=== PATIENT | male | born 1965 | race Caucasian/White ===

== ENCOUNTER → 2019-08-11 11:18 | Outpatient (BNVA) | payer MEDICARE, MEDICAID, SELFPAY | PROVIDERS: Family Provider Family Medicine; PCP Family Medicine; Visit Provider Nurse Practitioner | DX: F20.9 Schizophrenia, unspecified (principal) | CPT/HCPCS: 85007; 85027 ==

== ENCOUNTER → 2019-09-07 11:24 | Outpatient (BNVA) | payer MEDICARE, MEDICAID, SELFPAY | PROVIDERS: Family Provider Family Medicine; PCP Family Medicine; Visit Provider Nurse Practitioner | DX: F20.89 Other schizophrenia (principal); Z79.899 Other long term (current) drug therapy | CPT/HCPCS: 85007; 85027; 99214 ==

== ENCOUNTER → 2019-10-06 13:45 | Outpatient (BNVA) | payer MEDICARE, MEDICAID, SELFPAY | PROVIDERS: Family Provider Family Medicine; PCP Family Medicine; Visit Provider Nurse Practitioner | DX: F20.89 Other schizophrenia (principal) | CPT/HCPCS: 85007; 85027; 99213 ==

== ENCOUNTER → 2019-11-11 08:33 | Outpatient (BNVA) | payer MEDICARE, MEDICAID, SELFPAY | PROVIDERS: Family Provider Family Medicine; PCP Family Medicine; Visit Provider Nurse Practitioner | DX: F20.89 Other schizophrenia (principal) | CPT/HCPCS: 99214 ==

== ENCOUNTER → 2019-12-14 08:17 | Outpatient (BNVA) | payer MEDICARE, MEDICAID, SELFPAY | PROVIDERS: Family Provider Family Medicine; PCP Family Medicine; Visit Provider Nurse Practitioner | DX: F20.89 Other schizophrenia (principal); F41.0 Panic disorder [episodic paroxysmal anxiety]; F41.1 Generalized anxiety disorder | CPT/HCPCS: 99213 ==

== ENCOUNTER → 2020-01-04 14:30 | Outpatient (BNVA) | payer MEDICARE, SELFPAY | PROVIDERS: Family Provider Family Medicine; PCP Family Medicine; Visit Provider Nurse Practitioner | DX: F20.89 Other schizophrenia (principal) | CPT/HCPCS: 99214 ==

== ENCOUNTER → 2020-01-06 11:47 | Outpatient (BNVA) | payer MEDICARE, SELFPAY | PROVIDERS: Family Provider Family Medicine; PCP Family Medicine; Visit Provider Nurse Practitioner | DX: F20.89 Other schizophrenia (principal); Z79.899 Other long term (current) drug therapy | CPT/HCPCS: 80061; 83036; 85007; 85027 ==

== ENCOUNTER → 2020-02-10 08:44 | Outpatient (BNVA) | payer MEDICARE, MEDICAID, SELFPAY | PROVIDERS: Family Provider Family Medicine; PCP Family Medicine; Visit Provider Nurse Practitioner | DX: F20.89 Other schizophrenia (principal); Z79.899 Other long term (current) drug therapy | CPT/HCPCS: 99213 ==

== ENCOUNTER → 2020-02-15 13:16 | Outpatient (BNVA) | payer MEDICARE, MEDICAID, SELFPAY | PROVIDERS: Family Provider Family Medicine; PCP Family Medicine; Visit Provider Nurse Practitioner | DX: F20.89 Other schizophrenia (principal); Z79.899 Other long term (current) drug therapy | CPT/HCPCS: 80061; 83036; 83721; 85007; 85027 ==

== ENCOUNTER → 2020-02-23 13:04 | Outpatient (BNVA) | payer MEDICARE, MEDICAID, OTHER, SELFPAY | PROVIDERS: Family Provider Family Medicine; PCP Family Medicine; Visit Provider Internal Medicine Rheumatology | DX: M05.79 Rheumatoid arthritis with rheumatoid factor of multiple sites without organ or systems involvement (principal); Z79.899 Other long term (current) drug therapy; Z11.59 Encounter for screening for other viral diseases; Z11.1 Encounter for screening for respiratory tuberculosis; M79.10 Myalgia, unspecified site; F20.89 Other schizophrenia | CPT/HCPCS: 36415; 82085; 82306; 82550; 85651; 86140; 86480; 86704; 86803; 87340; 99204 ==

== ENCOUNTER 2020-03-06 12:40 | Outpatient (CLI) | payer MEDICARE, MEDICAID, SELFPAY ==
--- NOTE | 2020-03-06 12:47 | XR_ITS ---
WS: [id number] FOOT LEFT TECHNIQUE: 3 views of the left foot CLINICAL INFORMATION: rheumatoid arthritis COMPARISON: None. FINDINGS: No evidence of acute fracture or dislocation. Normal tarsal metatarsal alignment. Normal calcaneus. N ormal visualized talar dome. No acute findings. XR/XR foot LT min 3V* [id number] IMPRESSION: Normal left foot.
--- NOTE | 2020-03-06 12:47 | XR_ITS ---
WS: [id number] HAND RIGHT TECHNIQUE: 3 views of the right hand CLINICAL INFORMATION: rheumatoid arthritis COMPARISON: None. FINDINGS: Normal metacarpals. Normal MCP joint. Metacarpal heads are normal in appearance. Normal PIP and DIP j oints. No evidence of acute fracture or dislocation. Radiocarpal joint: Normal. Carpal bones: Normal. XR/XR hand RT min 3V* [id number] IMPRESSION: Normal right hand.
--- NOTE | 2020-03-06 12:47 | XR_ITS ---
WS: [id number] PROCEDURE: XR chest 2V* [id number] CLINICAL INFORMATION: rheumatoid arthritis COMPARISON: March 27, 2019 FINDINGS: Heart: Normal cardiac silhouette. Lungs: Lungs are clear. No consolidation or pleural fluid. Calcified granuloma left upper lobe. Bones: Moderate thoracic kyphosis. XR/XR chest 2V* [id number] IMPRESSION: No acute chest findings.
--- NOTE | 2020-03-06 12:47 | XR_ITS ---
WS: [id number] FOOT RIGHT TECHNIQUE: 3 views of the right foot CLINICAL INFORMATION: rheumatoid arthritis COMPARISON: None. FINDINGS: No evidence of acute fracture or dislocation. Normal tarsal metatarsal alignment. Normal calcaneus. N ormal visualized talar dome. No acute findings. XR/XR foot RT min 3V* [id number] IMPRESSION: Normal right foot.
--- NOTE | 2020-03-06 12:47 | XR_ITS ---
WS: [id number] HAND LEFT TECHNIQUE: 3 views of the left hand CLINICAL INFORMATION: rheumatoid arthritis COMPARISON: None. FINDINGS: Normal metacarpals. Normal MCP joint. Metacarpal heads are normal in appearance. Normal PIP and DIP j oints. No evidence of acute fracture or dislocation. Radiocarpal joint: Normal. Carpal bones: Normal. XR/XR hand LT min 3V* [id number] IMPRESSION: Normal left hand.
== END 2020-03-06 12:41 | disposition home or self-care (01) ==
LOC: RADWPI 12:44
PROVIDERS: Family Provider Family Medicine; PCP Family Medicine; Visit Provider Internal Medicine Rheumatology
DX: M06.9 Rheumatoid arthritis, unspecified (principal)
CPT/HCPCS: 71046; 73130; 73630

== ENCOUNTER → 2020-03-16 09:24 | Outpatient (BNVA) | payer MEDICARE, MEDICAID, SELFPAY | PROVIDERS: Family Provider Family Medicine; PCP Family Medicine; Visit Provider Nurse Practitioner | DX: F20.89 Other schizophrenia (principal) | CPT/HCPCS: 99214 ==

== ENCOUNTER → 2020-03-17 13:06 | Outpatient (BNVA) | payer MEDICARE, MEDICAID, SELFPAY | PROVIDERS: Family Provider Family Medicine; PCP Family Medicine; Visit Provider Nurse Practitioner | DX: F20.89 Other schizophrenia (principal); Z79.899 Other long term (current) drug therapy | CPT/HCPCS: 85007; 85027 ==

== ENCOUNTER → 2020-04-10 07:58 | Outpatient (BNVA) | payer MEDICARE, MEDICAID, SELFPAY | PROVIDERS: Family Provider Family Medicine; PCP Family Medicine; Visit Provider Nurse Practitioner | DX: F20.89 Other schizophrenia (principal); F20.0 Paranoid schizophrenia; F43.12 Post-traumatic stress disorder, chronic | CPT/HCPCS: 99214 ==

== ENCOUNTER → 2020-04-17 13:26 | Outpatient (BNVA) | payer MEDICARE, MEDICAID, SELFPAY | PROVIDERS: Family Provider Family Medicine; PCP Family Medicine; Visit Provider Nurse Practitioner | DX: F20.89 Other schizophrenia (principal) | CPT/HCPCS: 85007; 85027 ==

== ENCOUNTER → 2020-05-11 08:28 | Outpatient (BNVA) | payer MEDICARE, MEDICAID, SELFPAY | PROVIDERS: Family Provider Family Medicine; PCP Family Medicine; Visit Provider Nurse Practitioner | DX: F20.89 Other schizophrenia (principal) | CPT/HCPCS: 99213 ==

== ENCOUNTER → 2020-05-16 11:52 | Outpatient (BNVA) | payer MEDICARE, SELFPAY | PROVIDERS: Family Provider Family Medicine; PCP Family Medicine; Visit Provider Nurse Practitioner | DX: F20.89 Other schizophrenia (principal); Z79.899 Other long term (current) drug therapy | CPT/HCPCS: 85007; 85027 ==

== ENCOUNTER → 2020-05-18 13:19 | Outpatient (BNVA) | payer OTHER, SELFPAY | PROVIDERS: Family Provider Family Medicine; PCP Family Medicine; Visit Provider Nurse Practitioner | DX: F20.89 Other schizophrenia (principal); Z79.899 Other long term (current) drug therapy | CPT/HCPCS: 80061; 83036 ==

== ENCOUNTER → 2020-06-01 14:22 | Outpatient (BNVA) | payer MEDICARE, MEDICAID, SELFPAY ==
[2020-05-23 14:39] VITALS: BP 147/98; BMI 32.2
== END ==
PROVIDERS: Family Provider Family Medicine; PCP Family Medicine; Visit Provider Internal Medicine Rheumatology
DX: M79.10 Myalgia, unspecified site; Z79.84 Long term (current) use of oral hypoglycemic drugs; Z87.891 Personal history of nicotine dependence; M05.79 Rheumatoid arthritis with rheumatoid factor of multiple sites without organ or systems involvement; Z79.899 Other long term (current) drug therapy; F20.89 Other schizophrenia; E11.9 Type 2 diabetes mellitus without complications
CPT/HCPCS: 99214

== ENCOUNTER → 2020-06-13 13:24 | Outpatient (BNVA) | payer MEDICARE, SELFPAY ==
[2020-05-23 14:39] VITALS: BP 147/98; BMI 32.2
== END ==
PROVIDERS: Family Provider Family Medicine; PCP Family Medicine; Visit Provider Nurse Practitioner
DX: F20.89 Other schizophrenia (principal); Z79.899 Other long term (current) drug therapy
CPT/HCPCS: 85007; 85027

== ENCOUNTER → 2020-06-19 07:46 | Outpatient (BNVA) | payer MEDICARE, MEDICAID, SELFPAY ==
[2020-05-23 14:39] VITALS: BP 147/98; BMI 32.2
== END ==
PROVIDERS: Family Provider Family Medicine; PCP Family Medicine; Visit Provider Nurse Practitioner
DX: F20.89 Other schizophrenia (principal)
CPT/HCPCS: 99213

== ENCOUNTER → 2020-07-17 07:43 | Outpatient (BNVA) | payer MEDICARE, MEDICAID, SELFPAY ==
[2020-05-23 14:39] VITALS: BP 147/98; BMI 32.2
== END ==
PROVIDERS: Family Provider Family Medicine; PCP Family Medicine; Visit Provider Nurse Practitioner
DX: F20.89 Other schizophrenia (principal)
CPT/HCPCS: 99213

== ENCOUNTER → 2020-07-26 11:54 | Outpatient (BNVA) | payer MEDICARE, MEDICAID, SELFPAY ==
[2020-05-23 14:39] VITALS: BP 147/98; BMI 32.2
== END ==
PROVIDERS: Family Provider Family Medicine; PCP Family Medicine; Visit Provider Nurse Practitioner
DX: F20.89 Other schizophrenia (principal); Z79.899 Other long term (current) drug therapy
CPT/HCPCS: 85007; 85027

== ENCOUNTER 2020-08-15 11:06 | Outpatient (CLI) | payer MEDICARE, MEDICAID, SELFPAY ==
[2020-05-23 14:39] VITALS: BP 147/98; BMI 32.2
--- NOTE | 2020-08-15 | USCV_ITS ---
Stress Echo Bassam Post Jr Age: 54 Gender: M : 1965 Exam Date: 08/15/2020 11:37 Ordering Phys: Avery March MD Technologist: Randy Knott Exam Location: [facility] – [place] Indication: dyspnea Rhythm: Sinus Patient History: Dyspnea/SOB Cardiac Medications: Medications in past 24 hours: Contrast: Stress Results Protocol: Duncan Total dose(mL): Exercise Duration (min:sec): 3:30 METS: 7 Resting HR: 85 Resting BP: 164 / 103 Peak HR: 115 Peak BP: 166 / 105 Max Predicted HR: 168 68 % Max Predicted HR Target HR: 143 Double Product: 19977 Stress Summary: The patient's target heart rate was not achieved The patient's target heart rate was not achieved due to fatigue BP Response: Normal Reason for Termination: Fatigue Cardiac Symptoms: Dyspnea ECG Analysis Resting ECG: Stress ECG: Arrhythmia: MEASUREMENTS (Male/Female) Normal Values FINDINGS PROCEDURE: At the baseline, the patient's blood pressure was 164/103 mmHg with a heart rate of 85 bpm. The patient exercised for 3 minutes and 30 seconds on a standard Duncan protocol. Patient attained a maximum heart rate of 115 beats per minute( 68 % of the maximum predicted heart rate) with a blood pressure at the peak exercise of 166/105 mm Hg. During the recovery phase, there were no new changes. Echocardiographic pictures were taken at the baseline, immediately following the peak exercise and during the recovery phase. Baseline echocardiogram: Normal left ventricular size and systolic function with ejection fraction estimated at 60 %. No regional wall motion abnormalities. Normal right ventricle size and systolic function. Normal left and right atrial size. No pericardial effusion. No intracardiac masses. Peak exercise echocardiogram: Normal augmentation of left ventricular systolic function with exercise. No new regional wall motion abnormalities. Recovery echocardiogram: Left ventricular systolic function normalizes. No regional wall motion abnormalities. CONCLUSIONS 1. This is a treadmill stress echocardiogram. Patient did not reach target heart rate due to fatigue. 2. Decreased exercise tolerance for age, attained a maximum of 7 [place] [address]. 3. Normal blood pressure and heart rate response to exercise. 4. Normal echocardiographic response to sub maximal stress. 5. Please see separate report for the EKG portion of the study. Monika Lester MD (Electronically Signed) Final Date: 20 August 2020 15:32 S
[2020-08-15 11:30] VITALS: BMI 29.8
--- NOTE | 2020-08-15 11:30 | ECG_ITS ---
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 Interpretive Statements NAME OF STUDY: TREADMILL STRESS ECHOCARDIOGRAM INDICATION: Chest Pain PROCEDURE: At the baseline, the patient's blood pressure was 164/103 mm Hg with a heart rate of 85 bpm and oxygen saturation of 95%. The baseline electrocardiogram showed normal sinus rhythm with normal ST-Ts. The patient exercised for 3 minutes and 32 seconds on a [standard Duncan protocol]. Patient attained a maximum heart rate of 115 beats per minute( 68% of the maximum predicted heart rate) with a blood pressure at the peak exercise of 145/75 mm Hg. The EKG at the peak exercise revealed sinus tachycardia with no significant ST-T wave changes. Patient did not have any chest pain or any significant EKG changes with the exercise. During the recovery phase, there were no new changes. Blood pressure at the end of the recovery phase was 157/102 mm Hg with a heart rate of 90 beats per minute and oxygen saturation of 97%. Echocardiographic pictures were taken at the baseline, immediately following the peak exercise and during the recovery phase. CONCLUSION: 1. Normal EKG response to treadmill exercise with submaximal stress. Patient reached 68% of MPHR. 2. No exercise-induced chest pain or cardiac arrhythmia. 3. Decreased exercise tolerance, attained a maximum of 7 METs. 4. Please see separate report for the echocardiographic response to exercise. Electronically Signed On 08-20-2020 17:00:22 COMPANY ACCOUNTANT by Monika Lester M.D. [id number]
[2020-08-15 12:07] VITALS: BP 157/102; PULSE 90
--- NOTE | 2020-08-15 13:16 | PC.NURSE ---
unable to reach target heart rate due to pt stating he couldn't go any more. pt was having a difficult time breathing while on treadmill.
== END 2020-08-15 11:07 | disposition home or self-care (01) ==
LOC: CDL 11:06
PROVIDERS: PCP Family Medicine; Visit Provider Family Medicine
DX: R06.09 Other forms of dyspnea (principal); R07.9 Chest pain, unspecified
CPT/HCPCS: 93017; 93350

== ENCOUNTER → 2020-08-29 08:25 | Outpatient (BNVA) | payer MEDICARE, MEDICAID, SELFPAY ==
[2020-05-23 14:39] VITALS: BP 147/98; BMI 32.2
== END ==
PROVIDERS: PCP Family Medicine; Visit Provider Nurse Practitioner
DX: F33.1 Major depressive disorder, recurrent, moderate (principal); F20.89 Other schizophrenia
CPT/HCPCS: 99214

== ENCOUNTER → 2020-09-25 13:07 | Outpatient (BNVA) | payer MEDICARE, MEDICAID, SELFPAY ==
[2020-05-23 14:39] VITALS: BP 147/98; BMI 32.2
== END ==
PROVIDERS: PCP Family Medicine; Visit Provider Nurse Practitioner
DX: F20.89 Other schizophrenia (principal); Z79.899 Other long term (current) drug therapy
CPT/HCPCS: 85007; 85027

== ENCOUNTER → 2020-09-27 07:26 | Outpatient (BNVA) | payer MEDICARE, MEDICAID, SELFPAY ==
[2020-05-23 14:39] VITALS: BP 147/98; BMI 32.2
== END ==
PROVIDERS: PCP Family Medicine; Visit Provider Nurse Practitioner
DX: F33.1 Major depressive disorder, recurrent, moderate (principal); F20.89 Other schizophrenia
CPT/HCPCS: 99214

== ENCOUNTER → 2020-10-16 13:03 | Outpatient (BNVA) | payer MEDICARE, MEDICAID, SELFPAY ==
[2020-05-23 14:39] VITALS: BP 147/98; BMI 32.2
== END ==
PROVIDERS: PCP Family Medicine; Visit Provider Internal Medicine Rheumatology
DX: M05.79 Rheumatoid arthritis with rheumatoid factor of multiple sites without organ or systems involvement (principal); Z79.899 Other long term (current) drug therapy; F20.89 Other schizophrenia; M79.10 Myalgia, unspecified site; E11.9 Type 2 diabetes mellitus without complications; Z79.84 Long term (current) use of oral hypoglycemic drugs; Z87.891 Personal history of nicotine dependence
CPT/HCPCS: 99214

== ENCOUNTER → 2020-10-26 11:39 | Outpatient (BNVA) | payer MEDICARE, MEDICAID, SELFPAY ==
[2020-05-23 14:39] VITALS: BP 147/98; BMI 32.2
== END ==
PROVIDERS: PCP Family Medicine; Visit Provider Nurse Practitioner
DX: F33.1 Major depressive disorder, recurrent, moderate (principal); F20.89 Other schizophrenia
CPT/HCPCS: 99214

== ENCOUNTER → 2020-11-28 13:20 | Outpatient (BNVA) | payer MEDICARE, MEDICAID, SELFPAY ==
[2020-05-23 14:39] VITALS: BP 147/98; BMI 32.2
== END ==
PROVIDERS: PCP Family Medicine
DX: F20.89 Other schizophrenia (principal); Z79.899 Other long term (current) drug therapy
CPT/HCPCS: 85007; 85027

== ENCOUNTER → 2020-12-12 14:07 | Outpatient (BNVA) | payer MEDICARE, MEDICAID, SELFPAY ==
[2020-05-23 14:39] VITALS: BP 147/98; BMI 32.2
== END ==
PROVIDERS: PCP Family Medicine; Visit Provider Nurse Practitioner
DX: F33.1 Major depressive disorder, recurrent, moderate (principal); F20.89 Other schizophrenia
CPT/HCPCS: 99214

== ENCOUNTER → 2021-01-01 13:29 | Outpatient (BNVA) | payer MEDICARE, MEDICAID, OTHER, SELFPAY ==
[2020-05-23 14:39] VITALS: BP 147/98; BMI 32.2
== END ==
PROVIDERS: PCP Family Medicine; Visit Provider Nurse Practitioner
DX: Z79.899 Other long term (current) drug therapy (principal)
CPT/HCPCS: 85007; 85027

== ENCOUNTER → 2021-01-17 12:46 | Outpatient (BNVA) | payer MEDICARE, MEDICAID, OTHER, SELFPAY ==
[2020-05-23 14:39] VITALS: BP 147/98; BMI 32.2
== END ==
PROVIDERS: PCP Family Medicine; Visit Provider Internal Medicine Rheumatology
DX: M05.79 Rheumatoid arthritis with rheumatoid factor of multiple sites without organ or systems involvement (principal); Z79.899 Other long term (current) drug therapy; E11.9 Type 2 diabetes mellitus without complications; Z79.84 Long term (current) use of oral hypoglycemic drugs; Z87.891 Personal history of nicotine dependence
CPT/HCPCS: 99214

== ENCOUNTER → 2021-01-25 11:34 | Outpatient (BNVA) | payer MEDICARE, MEDICAID, SELFPAY ==
[2020-05-23 14:39] VITALS: BP 147/98; BMI 32.2
== END ==
PROVIDERS: PCP Family Medicine; Visit Provider Nurse Practitioner
DX: F33.1 Major depressive disorder, recurrent, moderate (principal); F20.89 Other schizophrenia
CPT/HCPCS: 99214

== ENCOUNTER → 2021-02-06 14:16 | Outpatient (BNVA) | payer MEDICARE, MEDICAID, SELFPAY ==
[2020-05-23 14:39] VITALS: BP 147/98; BMI 32.2
== END ==
PROVIDERS: PCP Family Medicine; Visit Provider Nurse Practitioner
DX: F20.89 Other schizophrenia (principal); F33.1 Major depressive disorder, recurrent, moderate
CPT/HCPCS: 99214

== ENCOUNTER → 2021-02-27 13:04 | Outpatient (BNVA) | payer MEDICARE, MEDICAID, SELFPAY ==
[2020-05-23 14:39] VITALS: BP 147/98; BMI 32.2
== END ==
PROVIDERS: PCP Family Medicine; Visit Provider Nurse Practitioner
DX: F20.89 Other schizophrenia (principal); Z79.899 Other long term (current) drug therapy
CPT/HCPCS: 85007; 85027

== ENCOUNTER → 2021-03-08 07:33 | Outpatient (BNVA) | payer MEDICARE, MEDICAID, OTHER, SELFPAY ==
[2020-05-23 14:39] VITALS: BP 147/98; BMI 32.2
== END ==
PROVIDERS: PCP Family Medicine; Visit Provider Nurse Practitioner
DX: F33.1 Major depressive disorder, recurrent, moderate (principal); F20.89 Other schizophrenia
CPT/HCPCS: 90847; 99214

== ENCOUNTER → 2021-04-19 12:46 | Outpatient (BNVA) | payer MEDICARE, MEDICAID, SELFPAY ==
[2020-05-23 14:39] VITALS: BP 147/98; BMI 32.2
== END ==
PROVIDERS: PCP Family Medicine; Visit Provider Nurse Practitioner
DX: F33.1 Major depressive disorder, recurrent, moderate (principal); F20.89 Other schizophrenia; Z79.899 Other long term (current) drug therapy
CPT/HCPCS: 85025; 99214

== ENCOUNTER → 2021-05-03 12:51 | Outpatient (BNVA) | payer MEDICARE, MEDICAID, SELFPAY ==
[2020-05-23 14:39] VITALS: BP 147/98; BMI 32.2
== END ==
PROVIDERS: PCP Family Medicine; Visit Provider Internal Medicine Rheumatology
DX: M05.79 Rheumatoid arthritis with rheumatoid factor of multiple sites without organ or systems involvement (principal); Z79.899 Other long term (current) drug therapy; R06.02 Shortness of breath; E11.9 Type 2 diabetes mellitus without complications; Z79.84 Long term (current) use of oral hypoglycemic drugs; F20.9 Schizophrenia, unspecified; Z71.89 Other specified counseling; Z87.891 Personal history of nicotine dependence
CPT/HCPCS: 99214

== ENCOUNTER → 2021-05-14 12:47 | Outpatient (BNVA) | payer MEDICARE, MEDICAID, SELFPAY ==
[2020-05-23 14:39] VITALS: BP 147/98; BMI 32.2
== END ==
PROVIDERS: PCP Family Medicine; Visit Provider Nurse Practitioner
DX: F20.89 Other schizophrenia (principal); F33.1 Major depressive disorder, recurrent, moderate; Z79.899 Other long term (current) drug therapy
CPT/HCPCS: 85025; 99214

== ENCOUNTER → 2021-06-11 12:49 | Outpatient (BNVA) | payer MEDICARE, MEDICAID, SELFPAY ==
[2020-05-23 14:39] VITALS: BP 147/98; BMI 32.2
== END ==
PROVIDERS: PCP Family Medicine; Visit Provider Nurse Practitioner
DX: F33.1 Major depressive disorder, recurrent, moderate (principal); F20.89 Other schizophrenia; Z79.899 Other long term (current) drug therapy
CPT/HCPCS: 85025; 99214

== ENCOUNTER → 2021-06-22 12:49 | Outpatient (BNVA) | payer MEDICARE, MEDICAID, SELFPAY ==
[2020-05-23 14:39] VITALS: BP 147/98; BMI 32.2
== END ==
PROVIDERS: PCP Family Medicine; Visit Provider Internal Medicine Rheumatology
DX: Z01.812 Encounter for preprocedural laboratory examination (principal); Z20.822 Contact with and (suspected) exposure to COVID-19
CPT/HCPCS: 87635

== ENCOUNTER 2021-06-27 13:32 | Outpatient (CLI) | payer MEDICARE, MEDICAID, SELFPAY ==
[2020-05-23 14:39] VITALS: BP 147/98; BMI 32.2
--- NOTE | 2021-06-27 14:02 | PFTS_ITS ---
Date of Study:06/27/21 Date of Dictation: 06/27/2021 MECHANICS: Pre-bronchodilator forced vital capacity (FVC) is normal Pre-bronchodilator forced expiratory volume in one second (FEV1) is normal. FEV1/FVC is normal. There is no postbronchodilator study. FLOW VOLUME LOOP: Normal. LUNG VOLUMES:not measured DIFFUSING CAPACITY FOR CARBON MONOXIDE: normal . INTERPRETATION: The postbronchodilator spirometry is normal. Gas transfer is moderately reduced. Clinical correlation is strongly recommended. MTDD
== END 2021-06-27 13:33 | disposition home or self-care (01) ==
LOC: RT 13:35
PROVIDERS: PCP Family Medicine; Visit Provider Internal Medicine Rheumatology
DX: M05.79 Rheumatoid arthritis with rheumatoid factor of multiple sites without organ or systems involvement (principal); Z79.899 Other long term (current) drug therapy; R06.02 Shortness of breath
CPT/HCPCS: 94010; 94726

== ENCOUNTER → 2021-07-09 14:39 | Outpatient (BNVA) | payer MEDICARE, MEDICAID, SELFPAY ==
[2020-05-23 14:39] VITALS: BP 147/98; BMI 32.2
== END ==
PROVIDERS: PCP Family Medicine; Visit Provider Nurse Practitioner
DX: F33.1 Major depressive disorder, recurrent, moderate (principal); F20.89 Other schizophrenia; Z79.899 Other long term (current) drug therapy
CPT/HCPCS: 85025; 99214

== ENCOUNTER → 2021-08-17 13:53 | Outpatient (BNVA) | payer MEDICARE, MEDICAID, SELFPAY ==
[2020-05-23 14:39] VITALS: BP 147/98; BMI 32.2
== END ==
PROVIDERS: PCP Family Medicine; Visit Provider Nurse Practitioner
DX: F33.1 Major depressive disorder, recurrent, moderate (principal); F20.89 Other schizophrenia; Z79.899 Other long term (current) drug therapy
CPT/HCPCS: 85007; 85027; 99214

== ENCOUNTER → 2021-09-10 14:40 | Outpatient (BNVA) | payer MEDICARE, MEDICAID, SELFPAY ==
[2020-05-23 14:39] VITALS: BP 147/98; BMI 32.2
== END ==
PROVIDERS: PCP Family Medicine; Visit Provider Nurse Practitioner
DX: F33.1 Major depressive disorder, recurrent, moderate (principal); Z79.899 Other long term (current) drug therapy
CPT/HCPCS: 85007; 85027; 99214

== ENCOUNTER 2021-09-24 05:10 | Inpatient (IN) | payer MEDICARE, MEDICAID, SELFPAY ==
[2020-05-23 14:39] VITALS: BP 147/98; BMI 32.2
[2021-09-24 05:19] VITALS: BP 143/103; PULSE 116; RESP 17; O2SAT 97; BMI 30.2
[2021-09-24 05:44] LABS: Basophils % 0.4 %; Eosinophils # 0.2 10^3/uL (0.0-0.8); Eosinophils % 1.8 %; Hematocrit 49.9 % (42.0-52.0); Hemoglobin 15.9 g/dL (11.7-16.6); Lymphocytes # 2.7 10^3/uL (0.8-4.8); Lymphocytes % 33.2 %; Mean Corpuscular HGB Conc 31.9 g/dL (30.0-36.0); Mean Corpuscular Hemoglobin 28.4 pg (28.0-34.0); Mean Corpuscular Volume 89.1 fl (80-94); Mean Platelet Volume 9.2 fL (7.4-10.4); Monocytes # 0.6 10^3/uL (0.2-0.9); Monocytes % 6.8 %; Neutrophils % 57.7 %; Nucleated Red Blood Cells % 0 %; Platelet Count 292 10^3/cmm (130-400); Red Cell Distribution Width 13.2 % (12.1-15.1); White Blood Count 8.1 10^3/uL (4.0-10.0)
--- NOTE | 2021-09-24 05:45 | W.ED.PSYCHS ---
HPI - Psych General: Chief Complaint: Psychiatric Symptoms Stated Complaint: Psychiatric Symptoms Time Seen by Provider: 09/24/21 05:27 Source: patient and family History of Present Illness: 55-year-old gentleman with a history of schizophrenia. He has had increased stress over a personal argument with his brother lately, and has stopped taking his medications of late. He has been experiencing worsening depression, suicidality, and some hallucinations. His father brought him in this morning for the symptoms. He has no specific plan for suicide. MD complaint: suicidal ideation and feels depressed Onset (ago): day(s) Duration: constant and getting worse History of same: Yes Relieving factors: none Exacerbating factors: none Context: not taking psychiatric medications Associated psychiatric symptoms: depression and suicidal ideation Associated symptoms: Reports auditory hallucinations, depression and suicidal ideation; Deny delusions or homicidal ideation Treatments prior to arrival: none If self harm: admits thoughts of self harm Review of Systems Const: Denies: fever(s) or chills Eyes: Denies: change in vision ENMT: Denies: throat pain Card: Denies: chest pain Resp: Denies: dyspnea, productive cough or non-productive cough GI: Denies: abdominal pain, nausea, vomiting or diarrhea Skin/Breast: Denies: rash Psych: Reports: depression, auditory hallucinations and suicidal ideation; Denies: homicidal ideation PFS ED PFSH: Medical History (Updated 09/24/21 @ 06:39 by Miles Yang DO) COVID-19 vaccine administered Diabetes mellitus High risk medication use Immunization counseling residential current use of clozapine Major depressive disorder, recurrent, moderate Myalgia Other schizophrenia Psychiatric care Seropositive rheumatoid arthritis of multiple sites Surgical History (Updated 10/16/20 @ 14:10 by Kingsley Salguero MD) No significant past surgical history Family History Other CAD (coronary artery disease) Chronic kidney disease (CKD) Diabetes Hypertension Stroke Denies family history of Rheumatoid arthritis Lupus Hyperlipidemia Social History Smoking and tobacco status: former smoker Second hand smoke exposure: No Alcohol intake: current Alcohol intake frequency: few times a month Adopted: No Caregiver/support person: Yes (Pts mother is his guardian) Lives independently: No Household members: none Housing: Manufactured/Mobile home Marital status: Highest education level completed: High School Graduate service: No 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 Pets and animals: Yes Pets & animals: dog(s) History of recent travel: No Leisure activites: other Leisure activities details: garden and mow Current gender identity: Male Physical Exam Const: GENERAL APPEARANCE: cooperative NUTRITIONAL APPEARANCE: overweight ORIENTATION/CONSCIOUSNESS: Yes awake, Yes oriented to person, Yes oriented to place and Yes oriented to time HENMT: COMMON NORMALS: normocephalic, atraumatic and Normal external nose present HEAD & SCALP: normocephalic and atraumatic FACE & SINUS: normal facial exam NOSE: Normal external nose present Eye: COMMON NORMALS: Equal, round and reactive pupils present and EOMs intact bilaterally PUPIL: Yes Equal, round and reactive pupils present Chest: COMMONS NORMALS: normal inspection of the chest Resp: COMMON NORMALS: normal respiratory effort, No use of accessory muscles and clear to auscultation bilaterally AUSCULTATION: clear to auscultation bilaterally Cardio: COMMON NORMALS: regular rate and regular rhythm RATE: regular rate RHYTHM: regular rhythm GI: COMMON NORMALS: Normal to inspection, nondistended, normoactive bowel sounds present and Soft to palpation PALPATION: Yes Soft to palpation Neuro: SANDOR COMA SCALE: document GCS findings [place] coma scale eye opening: Spontaneous Sandor coma scale verbal response: Orientated [place] coma scale motor response: Obey commands Sandor coma scale total score: 15 SENSORIUM/ORIENTATION: Yes oriented to person, Yes oriented to place and Yes oriented to time GAIT: Yes Normal gait present Psych: COMMON NORMALS: speech normal ATTITUDE: Yes calm ACTIVITY/MOTOR BEHAVIOR: Yes psychomotor agitation and Yes Avoids eye contact (attititude/behavior) SPEECH: Yes normal speech MOOD & AFFECT: Yes depressed mood THOUGHT PROCESS: disorganized THOUGHT CONTENT: Yes Suicidality present, No Homicidality present and No delusions ATTENTION/CONCENTRATION: Yes attention grossly intact and Yes concentration grossly intact MEMORY/COGNITION: Yes memory grossly intact and Yes cognition grossly intact INSIGHT: Limited insight present (Psych) JUDGEMENT: Limited judgement present (Psych) Course Consultations: Consultation #1: [email or web address] Time: 06:39 Vital Signs: Vital signs: Vital Signs Pulse Rate 116 H 09/24/21 05:19 Respiratory Rate 17 09/24/21 05:19 Blood Pressure 143/103 09/24/21 05:19 Pulse Oximetry 97 09/24/21 05:19 MDM - Psych Medical Decision Making Patient suicidal, but without plan. Clearly having auditory hallucinations in the room. Willing to be admitted. Lab Data : 09/24/21 00:52 09/24/21 00:52 Laboratory Results WBC 8.1 10^3/uL (4.0-10.0) 09/24/21 00:52 RBC 5.60 10^6/uL (4.1-5.3) H 09/24/21 00:52 Hgb 15.9 g/dL (11.7-16.6) 09/24/21 00:52 Hct 49.9 % (42.0-52.0) 09/24/21 00:52 MCV 89.1 fl (80-94) 09/24/21 00:52 MCH 28.4 pg (28.0-34.0) 09/24/21 00:52 MCHC 31.9 g/dL (30.0-36.0) 09/24/21 00:52 RDW 13.2 % (12.1-15.1) 09/24/21 00:52 Plt Count 292 10^3/cmm (130-400) 09/24/21 00:52 MPV 9.2 fL (7.4-10.4) 09/24/21 00:52 Neut % (Auto) 57.7 % 09/24/21 00:52 Lymph % (Auto) 33.2 % 09/24/21 00:52 [place] % (Auto) 6.8 % 09/24/21 00:52 Eos % (Auto) 1.8 % 09/24/21 00:52 Baso % (Auto) 0.4 % 09/24/21 00:52 Neut # (Auto) 4.70 10^3/uL (1.8-7.7) 09/24/21 00:52 Lymph # (Auto) 2.7 10^3/uL (0.8-4.8) 09/24/21 00:52 [place] # (Auto) 0.6 10^3/uL (0.2-0.9) 09/24/21 00:52 Eos # (Auto) 0.2 10^3/uL (0.0-0.8) 09/24/21 00:52 Baso # (Auto) 0.0 10^3/uL (0.0-0.1) 09/24/21 00:52 Nucleated RBC % (auto) 0 % 09/24/21 00:52 Nucleated RBCs # 0.0 /100WBC 09/24/21 00:52 Sodium 137 mmol/L (136-145) 09/24/21 00:52 Potassium 4.0 mmol/L (3.5-5.1) 09/24/21 00:52 Chloride 97 mmol/L (98-107) L 09/24/21 00:52 Carbon Dioxide 24 mmol/L (22-29) 09/24/21 00:52 Anion Gap 20.0 (5-19) H 09/24/21 00:52 BUN 15 mg/dL (6-20) 09/24/21 00:52 Creatinine 1.1 mg/dL (0.7-1.2) 09/24/21 00:52 GFR Calculation 70.0 mL/min (90-130) L 09/24/21 00:52 Glucose 236 mg/dL (65-115) H 09/24/21 00:52 Calculated Osmolality 292 mOsm/kg (285-295) 09/24/21 00:52 Calcium 9.5 mg/dL (8.5-10.5) 09/24/21 00:52 Total Bilirubin 0.7 mg/dL (0.15-1.2) 09/24/21 00:52 AST 23 U/L (0-40) 09/24/21 00:52 ALT 45 U/L (0-41) H 09/24/21 00:52 Alkaline Phosphatase 85 IU/L (40-130) 09/24/21 00:52 Total Protein 7.6 g/dL (6.6-8.7) 09/24/21 00:52 Albumin 4.9 g/dL (3.5-5.2) 09/24/21 00:52 Globulin 2.7 g/dL (1.3-4.6) 09/24/21 00:52 Salicylates < 0.3 mg/dL (3-10) L 09/24/21 00:52 Acetaminophen < 5.0 ug/mL (10-30) L 09/24/21 00:52 Discharge Plan Discharge Patient Disposition: Admitted As Inpatient Clinical Impression: Other schizophrenia, Suicidal ideation Condition: Stable Coding Level of Care Code ED Sports Instructor for Chg Fwd Exam Comprehensive
[2021-09-24 05:56] LABS: Alanine Aminotransferase 45 U/L (0-41); Albumin Level 4.9 g/dL (3.5-5.2); Alkaline Phosphatase 85 IU/L (40-130); Chloride 97 mmol/L (98-107); Sodium 137 mmol/L (136-145)
[2021-09-24 05:59] LABS: Aspartate Amino Transferase 23 U/L (0-40); Blood Urea Nitrogen 15 mg/dL (6-20); Calcium 9.5 mg/dL (8.5-10.5); Carbon Dioxide 24 mmol/L (22-29); Total Bilirubin 0.7 mg/dL (0.15-1.2); Total Protein 7.6 g/dL (6.6-8.7)
[2021-09-24 06:04] LABS: Acetaminophen < 5.0 ug/mL (10-30); Globulin 2.7 g/dL (1.3-4.6); Salicylate < 0.3 mg/dL (3-10)
[2021-09-24 06:06] LABS: Glucose 236 mg/dL (65-115); Osmolality Calculated 292 mOsm/kg (285-295)
[2021-09-24 06:49] LABS: Alcohol Level < 10 mg/dL (0-10)
[2021-09-24] MEDS: LORazepam 2 mg Tablet PO (07:35)
--- NOTE | 2021-09-24 08:26 | PC.NURSE ---
REPORT CALLED TO CAROLE HERRERA.
[2021-09-24 08:34] LABS: Glucose Point of Care 210 mg/dL (70-110)
[2021-09-24] MEDS: insulin lispro 100 unit/1 mL SUBCUT ×2 (08:38→21:07)
--- NOTE | 2021-09-24 08:47 | PC.NURSE ---
informed dr. perea of hr of 125bpm vo to confirm metoprolol 50 bid as home medication and adm prior to transport.
[2021-09-24] MEDS: metoprolol tartrate 50 mg Tablet PO (08:52)
[2021-09-24 09:04] VITALS: BP 139/93; PULSE 120; RESP 20; O2SAT 94
[2021-09-24] MEDS: OLANZapine 5 mg ODT PO (09:39)
--- NOTE | 2021-09-24 09:40 | PC.NURSE ---
prn Zyprexa Zydis 5 mg given po per pt c/o agitation.
[2021-09-24 11:40] LABS: Glucose Point of Care 195 mg/dL (70-110)
[2021-09-24] MEDS: insulin lispro 100 unit/1 mL 6 UNIT SUBCUT (12:12)
[2021-09-24 14:00] VITALS: BP 112/70; PULSE 88; RESP 20; TEMP 37; O2SAT 96
[2021-09-24 17:15] LABS: Glucose Point of Care 135 mg/dL (70-110)
[2021-09-24 21:05] LABS: Glucose Point of Care 243 mg/dL (70-110)
[2021-09-24 22:00] VITALS: BP 115/77; PULSE 89; RESP 19; TEMP 36.4; O2SAT 97
[2021-09-25 06:00] VITALS: BP 105/77; PULSE 86; RESP 20; TEMP 36.4; O2SAT 97
--- NOTE | 2021-09-25 08:19 | W.PM.NPUH&PS ---
Providers/Chief Complaint Admitting Physician: Alek Nugent MD Primary Care Provider: Avery March MD Chief Complaint: Psychiatric Symptoms HPI NPU History of Present Illness Bassam Post Jr is a 55 year old male who presented to the emergency department the following report: Chief Complaint: Psychiatric Symptoms Stated Complaint: Psychiatric Symptoms Time Seen by Provider: 09/24/21 05:27 Source: patient and family History of Present Illness:?? 55-year-old gentleman with a history of schizophrenia.? He has had increased stress over a personal argument with his brother lately, and has stopped taking his medications of late.? He has been experiencing worsening depression, suicidality, and some hallucinations.? His father brought him in this morning for the symptoms.? He has no specific plan for suicide. complaint: suicidal ideation and feels depressed Onset (ago): day(s) Duration: constant and getting worse History of same: Yes Relieving factors: none Exacerbating factors: none Context: not taking psychiatric medications Associated psychiatric symptoms: depression and suicidal ideation Associated symptoms: Reports auditory hallucinations, depression and suicidal ideation; Deny delusions or homicidal ideation Treatments prior to arrival: none If self harm: admits thoughts of self harm Use admitted to the neuropsychiatric unit for definitive treatment of those issues. He presents today as a poor historian answering questions often with I do not know. He reports he is been hospitalized multiple times psychiatrically maybe 4-5 times with at least the last hospitalization being here. He reports outpatient services at [facility]. He reports that he has not been compliant with his medication and could not give me the medications names. He reports that he chews about half a can a day, reports that he does not all around them but denies marijuana or illicit drugs. He is never been to rehab or had a DUI. He reports that he thinks the reason why he is here is that he had a stroke but he could not give me clarity as to why he was here. He reports that he was trying to do something and got confused and that is possible that one of his family members thought he needed to be here. He denied suicide attempts or self-injurious behaviors. He reports that he has been going to zoroastrianism and trying to get religiously better. Logically said did not make sense except for when he answered some questions directly. An excerpt from his last hospitalization is included below for context. Psychiatric history: As above. Substance use history: As above. Family history: He reports he does not know about his family history. Developmental history: He reports that he believes his was normal and he learned to walk and talk and met developmental milestones on time. He reports he does not know about speech therapy but he did need special education classes. Psychosocial history: Patient reports that his parents were together when he was born and that he has an older brother and younger sister but that same union. He reports his childhood was okay and there was no emotional physical or sexual abuse. He reports he graduated from high school. He reports that he is heterosexual as long relationship with 6 years. He then once and once, has never had children, he has never been in the , he reports he is a Oriental Orthodox. His longest work history was 5 years in the [employer] industry. He currently lives in a trailer with his brother and his dog. Legal history: He reports he was in prison 1 time. Medical history: He reports he had a stroke. Per his 03/28/2019 [facility] inpatient psychiatric evaluation: Date of Service: Mar 28, 2019 Chief Complaint: ?I just have a little thinking problem.?? ?When I go home, I?ll be needing a little bit of strength.? HPI: Chief complaint: ?I just have a little thinking problem.?? ?When I go home, I?ll be needing a little bit of strength.? History of present illness: Bassam Post is a 53-year-old man with a prior admission to this hospital 2 years ago and a diagnosis of schizophrenia.? He is not a reliable historian and we have very little background information on him other than what is in the emergency room records.? The patient admits that he has not been taking his medication for several months.? He admits that he has been increasingly disorganized in his thinking.? He denies the presence of paranoia.? He denies the presence of auditory or visual hallucinations.? He does admit that he has been drinking some over the past week but does not estimate how much she has been drinking.? He denied suicidal or homicidal ideation though that is mentioned in the affidavit for commitment on his chart.? He denies being depressed.? However he admits that his thinking has been unclear and it has bothered him greatly. ER report: DEPRESSED and BEHAVIOR CHANGE.? This started 3 days ago.? (53 yo male presents to ED with guardian complaints of the patient being off of his medications for 2-3 months but he has become increasingly worse over the last 3 days (patient should be taking his medication for his schizophrenia). She said the patient is not eating and he has lost some weight. She said the patient told her (the guardian) that he has blisters on his feet. The guardian said the patient cannot tell her where he is. She said he has began carrying a bag of underclothes around with him. ? The patient stated he has been walking the road for 3 days now. He appears to be unable to say anything else. ? The patient is shaking uncontrollably.).? Mental health history: He was hospitalized at this same unit in 2017 with a diagnosis of schizophrenia.? At that time, documents indicate that he had a guardian and was being treated with Invega trends actions.? He was also taking Wellbutrin clonazepam metformin Zanaflex and atorvastatin.? He is not able to provide any information as he does not recall that hospitalization.. Social history: He currently apparently lives on a family compound.? His brother lives next door to him and his mother lives up the hill.? He says that when he goes home, he needs somebody coming in to help him because his brother is going to be traveling.? He grown about 20 miles from here.? He says that he finished high school.? He is on disability for stress and multiple medical problems (pointing to various parts of body) Legal history: There is no documentation of legal problems of a criminal nature.? It does appear that he was placed under guardianship in 2011. Past medical history: Patient claims that he has Parkinson?s disease.? He does not take medications for.? He denies any history of surgeries.? He denies any chronic medical problems.? No urine drug screen was performed on admission.? Laboratories were otherwise unremarkable. Mental Status Exam: Appearance: hygiene is fair; no gross neurological deficits., gait is unremarkable; AIMS=0 Speech: Speech is of normal rate and rhythm and easily understood.? However his speech is circumferential.? He does mumble some but is generally intelligible. Thought processes: Thought processes are idiosyncratic.? He is frequently illogical and often times his answers do not even pertain to the question asked.? He is disorganized in his thinking and not goal-directed.? Judgment is not adequate for safety without supervision. Associations: Loose Psychotic processes: There is no indication of guarding or paranoia.? Is believed to be a reliable informant to the best of his ability.? There is no attention to the internal stimuli.? Auditory and visual hallucinations are denied.? Judgment: Insight is poor.? Problem solving skills are not adequate for safety. Orientation: The patient is oriented to person, place time and situation. Memory: no deficits noted in immediate, intermediate, or remote spheres. Attention: The patient is alert and interpersonally engaged.? Language: Verbalizations are coherent. Fund of knowledge: Fund of knowledge is poor Affect/Mood: Affect is consistent with euthymic mood.? He denied suicidal ideation Affective range iappropriate.? Psychosis: perception unimpaired but reality testing is severely impaired by his level of disorganization and cognitive deficit. Diagnoses: Schizophreniadisorganized type, acute Meds NPU Home Medications Medication Instructions Recorded Confirmed Last Taken Type atorvastatin 10 mg tablet 10 mg PO DAILY 09/07/19 09/25/21 Unknown History metoprolol tartrate 50 mg tablet 50 mg PO BID 09/07/19 09/25/21 Unknown History lisinopril 5 mg tablet 5 mg PO DAILY 02/09/20 09/25/21 Unknown History prednisone 5 mg tablet 5 mg PO DAILY #90 tab 05/03/21 09/25/21 Unknown Rx tramadol 50 mg tablet 50 mg PO TID PRN #60 tab 05/03/21 09/25/21 Unknown Rx metformin 1,000 mg tablet 500 mg PO DAILY tab 08/17/21 09/25/21 Unknown History alprazolam 0.5 mg tablet 0.5 mg PO BID PRN #60 tab 09/19/21 09/25/21 Unknown Rx bupropion HCl 150 mg 24 hr tablet, 150 mg PO QAM #30 tab 09/19/21 09/25/21 Unknown Rx extended release (Wellbutrin XL) bupropion HCl 300 mg 24 hr tablet, 300 mg PO QAM #30 tab 09/19/21 09/25/21 Unknown Rx extended release (Wellbutrin XL) clozapine 25 mg tablet 25 mg PO DAILY #30 tab 09/19/21 09/25/21 Unknown Rx topiramate 50 mg tablet (Topamax) 50 mg PO BID #60 tab 09/19/21 09/25/21 Unknown Rx pantoprazole 40 mg tablet,delayed 40 mg PO DAILY 09/25/21 09/25/21 Unknown History release trihexyphenidyl 2 mg tablet 4 mg PO BEDTIME 09/25/21 09/25/21 Unknown History Allergies Allergy/AdvReac Type Severity Reaction Status Date / Time No Known Allergies Allergy Verified 06/11/21 13:20 PFSH NPU PFSH: Medical History (Updated 09/24/21 @ 06:39 by Miles Yang DO) COVID-19 vaccine administered Diabetes mellitus High risk medication use Immunization counseling halfway current use of clozapine Major depressive disorder, recurrent, moderate Myalgia Other schizophrenia Psychiatric care Seropositive rheumatoid arthritis of multiple sites Surgical History (Updated 10/16/20 @ 14:10 by Kingsley Salguero MD) No significant past surgical history Family History Other CAD (coronary artery disease) Chronic kidney disease (CKD) Diabetes Hypertension Stroke Denies family history of Rheumatoid arthritis Lupus Hyperlipidemia Social History Smoking and tobacco status: former smoker Second hand smoke exposure: No Alcohol intake: current Alcohol intake frequency: few times a month Adopted: No Caregiver/support person: Yes (Pts mother is his guardian) Lives independently: No Household members: none Housing: Manufactured/Mobile home Marital status: Highest education level completed: High School Graduate service: No 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 Balding on top of his head. No abnormal movements except for psychomotor retardation. Cooperative with exam in mild distress. Speech was limited and decreased rate and volume. Mood described as anxious and may be confused, affect congruent. Thought process linear with some organization. Thought content: Patient denied suicidal or homicidal ideation, he reported some paranoia and did appear guarded, he denied auditory or visual hallucinations. Attention and concentration appeared limited and memory. Intermittently reliable but none were formally tested. He is alert and oriented times person and place. Insight and judgment is impaired, impulse control is impaired. 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 1. Continue current medication. We will get collateral information on medication from his guardian. 2. Continue every 15 minute checks for safety. 3. Encourage individual, group and milieu therapies. 4. Encourage sober living treatment after discharge at the highest level of care to which he is willing to commit. Involuntary Hold Information 96 Hour Hold: 96 Hour Involuntary Admission: No 96 Hour Hold Ending Date: 09/24/21 Attestations NPU Medical Necessity Statement*: Inpatient hospitalization is medically necessary and the clinically appropriate intervention at this time. We will monitor medication to make changes as indicated. Patient will be in the hospital for over two midnights. Likely length of stay 4-6 days. Coding Level of Care Code Acute Signal Helper for Alf Ayala Diagnoses Suicidal ideation R45.851 intermediate card tender current use of clozapine Z79.899 Major depressive disorder, recurrent, moderate F33.1 Diabetes mellitus E11.9 Immunization counseling Z71.89 Other schizophrenia F20.89 Seropositive rheumatoid arthritis of multiple sites M05.79 Myalgia M79.10 High risk medication use Z79.899
[2021-09-25 08:20] LABS: Glucose Point of Care 175 mg/dL (70-110)
[2021-09-25] MEDS: cloZAPine 25 mg Tablet PO (09:26)
[2021-09-25] MEDS: buPROPion XL (24 HR) 300 mg Tablet PO (09:26)
[2021-09-25] MEDS: metformin 500 mg Tablet PO (09:27)
[2021-09-25] MEDS: lisinopril 5 mg Tablet PO (09:27)
[2021-09-25] MEDS: atorvastatin 40 mg Tablet 10 MG PO (09:27)
[2021-09-25] MEDS: metoprolol tartrate 50 mg Tablet PO ×2 (09:27→17:16)
[2021-09-25] MEDS: pantoprazole DR 40 mg Tablet PO (09:27)
[2021-09-25] MEDS: topiramate 25 mg Tablet 50 MG PO ×2 (09:27→17:16)
[2021-09-25] MEDS: buPROPion XL (24 HR) 150 mg Tablet PO (09:28)
[2021-09-25] MEDS: insulin lispro 100 unit/1 mL SUBCUT ×2 (09:28→13:04)
--- NOTE | 2021-09-25 10:55 | NPU.GN ---
[facility] Group Topic:Santino Aguila General Mood of Group: Bassam did not attend group today.
[2021-09-25 11:20] LABS: Glucose Point of Care 223 mg/dL (70-110)
[2021-09-25 14:00] VITALS: BP 96/68; PULSE 77; RESP 17; TEMP 36.6; O2SAT 96
[2021-09-25 20:13] LABS: Glucose Point of Care 110 mg/dL (70-110)
[2021-09-25 20:13] LABS: Glucose Point of Care 129 mg/dL (70-110)
[2021-09-25 20:37] VITALS: BP 79/52; PULSE 68; RESP 17; TEMP 36.5; O2SAT 99
[2021-09-25] MEDS: docusate sodium 100 mg Capsule PO (20:46)
[2021-09-26 06:00] VITALS: BP 90/62; PULSE 61; RESP 17; TEMP 36.6; O2SAT 99
[2021-09-26 06:35] LABS: Glucose Point of Care 160 mg/dL (70-110)
--- NOTE | 2021-09-26 07:41 | W.PM.NPUPNS ---
Subjective NPU Subjective: Interval history: Patient presented today endorsing openness to reinitiate the Invega injection. We had a long conversation reviewing the risk benefits and alternatives of the medication and he understood and agreed proceed as documented in the note and his guardian was in agreement. And then later he came to the nurses station and 70 change his mind. We discussed the fact that we would reach out to his guardian but that the guardian may decide to proceed with the injection anyway given our lack of clarity on what his options will be for any kind of structured living arrangement. Mental Status Exam MSE Comments: This is an obese short white male in hospital scrubs with limited grooming and eye contact.? Balding on top of his head.? No abnormal movements except for psychomotor retardation.? Cooperative with exam in mild distress.? Speech was limited and decreased rate and volume.? Mood described as anxious and may be confused, affect congruent.? Thought process linear with some organization.? Thought content: Patient denied suicidal or homicidal ideation, he reported some paranoia and did appear guarded, he denied auditory or visual hallucinations.? Attention and concentration appeared limited and memory.? Intermittently reliable but none were formally tested.? He is alert and oriented times person and place.? Insight and judgment is impaired, impulse control is impaired. 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 1.? Continue current medication.? We will start Invega 6 mg p.o. every morning and get clear permission from guardian to proceed with the monthly injection. 2.? Continue every 15 minute checks for safety. 3.? Encourage individual, group and milieu therapies. 4.? Encourage sober living treatment after discharge at the highest level of care to which he is willing to commit. Involuntary Hold Information 96 Hour Hold: 96 Hour Involuntary Admission: No 96 Hour Hold Ending Date: 09/24/21 Attestations NPU Medical Necessity Statement*: Inpatient hospitalization is medically necessary and the clinically appropriate intervention at this time. We will monitor medication to make changes as indicated. Likely length of stay 4-6 days. 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
[2021-09-26] MEDS: metformin 500 mg Tablet PO (10:32)
[2021-09-26] MEDS: topiramate 25 mg Tablet 50 MG PO ×2 (10:32→18:25)
[2021-09-26] MEDS: buPROPion XL (24 HR) 150 mg Tablet PO (10:32)
[2021-09-26] MEDS: lisinopril 5 mg Tablet PO (10:32)
[2021-09-26] MEDS: cloZAPine 25 mg Tablet PO (10:33)
[2021-09-26] MEDS: predniSONE 5 mg Tablet PO (10:33)
[2021-09-26] MEDS: pantoprazole DR 40 mg Tablet PO (10:34)
[2021-09-26] MEDS: buPROPion XL (24 HR) 300 mg Tablet PO (10:34)
[2021-09-26] MEDS: atorvastatin 40 mg Tablet 10 MG PO (10:34)
[2021-09-26] MEDS: metoprolol tartrate 50 mg Tablet PO ×2 (10:34→18:24)
--- NOTE | 2021-09-26 10:48 | NPU.GN ---
[facility] Group Topic: Boogie Villalobos General Mood of Group: Bassam attended and participated in group. He was social but hard to understand, his hygiene was poor and he does not seem stable at this time. Client had a hard time with the group activity. But he did still try and this designer/writer assisted client when he needed help. CSS thanked client for trying.
[2021-09-26 10:58] LABS: Glucose Point of Care 181 mg/dL (70-110)
[2021-09-26 14:00] VITALS: BP 118/59; PULSE 74; RESP 17; TEMP 36.6; O2SAT 97
[2021-09-26 16:38] LABS: Glucose Point of Care 217 mg/dL (70-110)
--- NOTE | 2021-09-26 18:13 | PC.NURSE ---
refused all insulin Pt is refusing insulin injections at this time. Staff educated pt on the importance of keeping Blood Sugars under control.
[2021-09-26] MEDS: docusate sodium 100 mg Capsule PO (20:23)
[2021-09-26 20:37] VITALS: BP 90/55; PULSE 69; RESP 18; TEMP 36.5; O2SAT 98
[2021-09-26 20:54] LABS: Glucose Point of Care 159 mg/dL (70-110)
--- NOTE | 2021-09-27 04:03 | PC.NURSE ---
2030 Patient is awake in his room on assessment. Patient allowed this nurse to take a few steps into the room but that was as close as he allowed. He began to state that he came here because he had a stroke. He feels better so now he wants to leave. He states that they want him to take a new medication and he doesn't want to. He states that he is fine and no longer is having tremors. Patient denied SI/HI/AVH on assessment stating , I'm fine. Patient denied insomnia or anxiety. Shortly thereafter the patient was pacing up and down the downing slowly. After making a round he would stop either at the day room to rest or the bench by the nurse's desk. He came up to the nurse's station 2 different times asking for towels and soap. Each time he was offerred. Each time he declined. The second time he also asked when he is going home. This nurse tried to simply tell him he would need to see the doctor in the morning. He appeared confused and several times he was seen in the middle of the hallway turning back and forth not knowing which way to go. Patient was offerred snacks and fluids. He declined. He finally around 0200 layed down in his bed.
--- NOTE | 2021-09-27 04:47 | PC.NURSE ---
9611 Patient is awake and walking the halls again. He did ask for some water. Denies any other needs.
[2021-09-27 06:00] VITALS: BP 102/67; PULSE 64; RESP 18; TEMP 36.7; O2SAT 97
[2021-09-27 07:41] LABS: Glucose Point of Care 172 mg/dL (70-110)
[2021-09-27] MEDS: metformin 500 mg Tablet PO (09:16)
[2021-09-27] MEDS: pantoprazole DR 40 mg Tablet PO (09:16)
[2021-09-27] MEDS: cloZAPine 25 mg Tablet PO (09:16)
[2021-09-27] MEDS: predniSONE 5 mg Tablet PO (09:17)
[2021-09-27] MEDS: lisinopril 5 mg Tablet PO (09:17)
[2021-09-27] MEDS: buPROPion XL (24 HR) 300 mg Tablet PO (09:17)
[2021-09-27] MEDS: topiramate 25 mg Tablet 50 MG PO ×2 (09:17→18:06)
[2021-09-27] MEDS: metoprolol tartrate 50 mg Tablet PO ×2 (09:17→18:07)
[2021-09-27] MEDS: buPROPion XL (24 HR) 150 mg Tablet PO (09:17)
[2021-09-27] MEDS: atorvastatin 40 mg Tablet 10 MG PO (09:17)
[2021-09-27] MEDS: paliperidone ER 6 mg Tablet PO (09:18)
[2021-09-27 11:57] LABS: Glucose Point of Care 174 mg/dL (70-110)
[2021-09-27 14:00] VITALS: BP 147/81; PULSE 79; RESP 16; TEMP 36.7; O2SAT 98
--- NOTE | 2021-09-27 15:27 | P.NPUPN_ITS ---
Subjective NPU Subjective: He says that he is doing better and is ready to go home. I spoke with his mother who is his guardian who feels he is not ready to go home. She feels that Clozaril has worked better for his psychosis but he has had side effects but does not like it. It makes him shaky. She feels that it is caused him to have diabetes. She wants to go back to the Invega injections. She is investigating putting him in an RCF but feels even then the Clozaril would be bad for him and wants him to change to be Invega injections. She was concerned about him being able to give himself injections for the diabetes. She was told that he has been refusing the insulin which has been indicated by the sliding scale. Mental Status Exam MSE Comments: This is an obese short white male in hospital scrubs with limite d grooming and eye contact.? Balding on top of his head.? He is tremulous with mildly increased psychomotor activity.? Cooperative with exam in mild distress.? Speech was limited and decreased rate and volume.? Mood described as anxious and may be confused, affect congruent.? Thought process linear with some organization.? Thought content: Patient denied suicidal or homicidal ideation, he reported some paranoia and did appear guarded, he denied auditory or visual hallucinations.? Attention and concentration appeared limited and memory.? Intermittently reliable but none were formally tested.? He is alert and oriented times person and place.? Insight and judgment is impaired, impulse control is impaired. Cognition: Patient Appearance: Disheveled/Poor Hygiene Level of Consciousness: Awake, Alert and Follows Commands Patient Cognition Impaired: Yes Ability to Follow Directions: Good Patient Orientation (long list): Person, Place, Time, Name, Age and Birthday Comprehension Ability: Mild Impairment Hallucination Type: None Delusion Description: Not Present Thought Process: Appropriate Affect: Affect Description: [place] and Calm Behavior: Patient Behavior: Cooperative and Withdrawn Speech Pattern: Appropriate, Clear and Delayed Vitals/I&O/Wt Last Vital Signs Temp 98.1 F 09/27/21 14:00 Pulse 79 09/27/21 14:00 Resp 16 09/27/21 14:00 BP 147/81 09/27/21 14:00 Pulse Ox 98 09/27/21 14:00 Data NPU : 09/24/21 00:52 09/24/21 00:52 A&P Assessment and plan (1) Suicidal ideation: Status: Acute (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 1.? Continue current medication.? We will start Invega 6 mg p.o. every morning and give the Invega Sustena initial injection. 2.? Continue every 15 minute checks for safety. 3.? Encourage individual, group and milieu therapies. 4.? Encourage sober living treatment after discharge at the highest level of care to which he is willing to commit. 5. Mother will investigate [facility] facilities. Involuntary Hold Information 96 Hour Hold: 96 Hour Involuntary Admission: No 96 Hour Hold Ending Date: 09/24/21 Attestations NPU Medical Necessity Statement*: Inpatient hospitalization is medically necessary and the clinically appropriate intervention at this time. We will initiate medications and make changes as indicated. Coding Level of Care Code Acute Mammal Keeper for Alf Ayala Diagnoses Suicidal ideation R45.851 intermediate current use of clozapine Z79.899 Major depressive disorder, recurrent, moderate F33.1 Diabetes mellitus E11.9 High risk medication use Z79.899 Myalgia M79.10 Seropositive rheumatoid arthritis of multiple sites M05.79 Other schizophrenia F20.89
[2021-09-27 16:43] LABS: Glucose Point of Care 167 mg/dL (70-110)
[2021-09-27] MEDS: insulin lispro 100 unit/1 mL SUBCUT (18:05)
[2021-09-27] MEDS: paliperidone palmitate 234 mg Syringe IM (18:06)
[2021-09-27] MEDS: docusate sodium 100 mg Capsule PO (20:39)
[2021-09-27 22:00] VITALS: BP 98/61; PULSE 65; RESP 20; TEMP 36.7; O2SAT 99
[2021-09-28 06:00] VITALS: BP 120/78; PULSE 69; RESP 20; TEMP 36.3; O2SAT 99
[2021-09-28 06:48] LABS: Glucose Point of Care 165 mg/dL (70-110)
[2021-09-28 06:48] LABS: Glucose Point of Care 100 mg/dL (70-110)
[2021-09-28] MEDS: topiramate 25 mg Tablet 50 MG PO ×2 (08:35→17:00)
[2021-09-28] MEDS: pantoprazole DR 40 mg Tablet PO (08:35)
[2021-09-28] MEDS: atorvastatin 40 mg Tablet 10 MG PO (08:36)
[2021-09-28] MEDS: metformin 500 mg Tablet PO ×2 (08:36→17:11)
[2021-09-28] MEDS: metoprolol tartrate 50 mg Tablet PO ×2 (08:36→17:00)
[2021-09-28] MEDS: paliperidone ER 6 mg Tablet PO (08:36)
[2021-09-28] MEDS: insulin lispro 100 unit/1 mL SUBCUT ×2 (08:37→11:45)
[2021-09-28] MEDS: lisinopril 5 mg Tablet PO (08:37)
[2021-09-28] MEDS: predniSONE 5 mg Tablet PO (08:37)
[2021-09-28] MEDS: buPROPion XL (24 HR) 150 mg Tablet PO (08:40)
[2021-09-28] MEDS: buPROPion XL (24 HR) 300 mg Tablet PO (08:40)
[2021-09-28 10:48] LABS: Glucose Point of Care 163 mg/dL (70-110)
[2021-09-28 13:47] VITALS: BP 94/66; PULSE 88; RESP 16; TEMP 36.8; O2SAT 98
--- NOTE | 2021-09-28 15:03 | P.NPUPN_ITS ---
Subjective NPU Subjective: He said that he was a little dizzy yesterday after getting the shot yesterday. He does not feel dizzy today. He wants to go home. He wants to see his dog and go to [facility]. He is still hearing the voices but says that he can deal with him. His mother yesterday definitely felt like he was not ready to go home and he is not seeing any difference today. He did not argue with that. He said that he wants to stay away from needles. He did take 1 dose of insulin yesterday. He agreed to increase his Metformin up to 500 mg twice a day. Mental Status Exam MSE Comments: This is an obese short white male in hospital scrubs with limited grooming and eye contact.? Balding on top of his head.? He is tremulous with mildly increased psychomotor activity.? Cooperative with exam in mild distress.? Speech was limited and decreased rate and volume.? Mood described as anxious and may be confused, affect congruent.? Thought process linear with some organization.? Thought content: Patient denied suicidal or homicidal ideation, he reported some paranoia and did appear guarded, he denied auditory or visual hallucinations.? Attention and concentration appeared limited and memory.? Intermittently reliable but none were formally tested.? He is alert and oriented times person and place.? Insight and judgment is impaired, impulse control is impaired. Cognition: Patient Appearance: Disheveled/Poor Hygiene Level of Consciousness: Awake, Alert and Follows Commands Patient Cognition Impaired: Yes Ability to Follow Directions: Good Patient Orientation (long list): Person, Place, Time, Name, Age and Birthday Comprehension Ability: Mild Impairment Hallucination Type: None Delusion Description: Not Present Thought Process: Appropriate Affect: Affect Description: Gregg and Calm Behavior: Patient Behavior: Cooperative and Withdrawn Speech Pattern: Appropriate, Clear and Delayed Vitals/I&O/Wt Last Vital Signs Temp 98.2 F 09/28/21 13:47 Pulse 88 09/28/21 13:47 Resp 16 09/28/21 13:47 BP 94/66 09/28/21 13:47 Pulse Ox 98 09/28/21 13:47 Data NPU : 09/24/21 00:52 09/24/21 00:52 A&P Assessment and plan (1) Suicidal ideation: Status: Acute (2) [facility] current use of clozapine: Status: Acute (3) Major depressive disorder, recurrent, moderate: Status: Acute (4) Diabetes mellitus: Status: Acute (5) High risk medication use: Status: Acute (6) Myalgia: Status: Acute (7) Seropositive rheumatoid arthritis of multiple sites: Status: Acute (8) Other schizophrenia: Status: Acute Plan This is a 55-year-old white male with a long history of schizophrenia and significant psychiatric treatment who presents apparently off medication with thought disorder with some confusion. 1.? Continue current medication.? We will start Invega 6 mg p.o. every morning and give the Invega Sustena initial injection. increase Metformin 500 mg BID 2.? Continue every 15 minute checks for safety. 3.? Encourage individual, group and milieu therapies. 4.? Encourage sober living treatment after discharge at the highest level of care to which he is willing to commit. 5. Mother will investigate [facility] facilities. Involuntary Hold Information 96 Hour Hold: 96 Hour Involuntary Admission: No 96 Hour Hold Ending Date: 09/24/21 Attestations NPU Medical Necessity Statement*: Inpatient hospitalization is medically necessary and the clinically appropriate intervention at this time. We will initiate medications and make changes as indicated. 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
[2021-09-28 16:37] LABS: Glucose Point of Care 101 mg/dL (70-110)
[2021-09-28 19:29] VITALS: BP 129/68; PULSE 79; RESP 17; TEMP 36.9; O2SAT 97
[2021-09-28] MEDS: docusate sodium 100 mg Capsule PO (20:10)
[2021-09-28] MEDS: trazodone 50 mg Tablet PO (20:10)
[2021-09-28 21:15] LABS: Glucose Point of Care 113 mg/dL (70-110)
[2021-09-28 22:00] VITALS: BP 129/68; PULSE 79; RESP 17; TEMP 36.9; O2SAT 97
[2021-09-29] MEDS: hyDROXYzine 25 mg Capsule 50 MG PO ×2 (00:44→11:35)
--- NOTE | 2021-09-29 02:19 | PC.NURSE ---
0044 Patient is at the nurse's station saying he has a muscle relaxer he takes at home. He would like 1/2 tab. There is nothing on his mar/orders for this. Patient was given Vistaril 50 mg po to relax his muscles. Patient has not slept yet this shift. Medication not effective.
[2021-09-29 06:00] VITALS: BP 116/77; PULSE 78; RESP 18; TEMP 36.6; O2SAT 97
[2021-09-29] MEDS: metformin 500 mg Tablet PO ×2 (06:14→17:05)
[2021-09-29 06:22] LABS: Glucose Point of Care 140 mg/dL (70-110)
[2021-09-29] MEDS: lisinopril 5 mg Tablet PO (08:31)
[2021-09-29] MEDS: buPROPion XL (24 HR) 300 mg Tablet PO (08:31)
[2021-09-29] MEDS: atorvastatin 40 mg Tablet 10 MG PO (08:32)
[2021-09-29] MEDS: topiramate 25 mg Tablet 50 MG PO ×2 (08:32→17:05)
[2021-09-29] MEDS: predniSONE 5 mg Tablet PO (08:32)
[2021-09-29] MEDS: paliperidone ER 6 mg Tablet PO (08:32)
[2021-09-29] MEDS: metoprolol tartrate 50 mg Tablet PO ×2 (08:32→17:06)
[2021-09-29] MEDS: buPROPion XL (24 HR) 150 mg Tablet PO (08:32)
[2021-09-29] MEDS: pantoprazole DR 40 mg Tablet PO (08:33)
--- NOTE | 2021-09-29 10:04 | PC.NURSE ---
Am assessment Patient is up in room with am assessment. He is alert and oriented to person and place. He denies SI, HI or hallucinations. His affect is noted to be anxious, depressed and flat. Hr regular with ppp x 2, no edema noted. Lungs clear with breathing even and non labored. Bowel sounds hypoactive in all quads. He is unable to state his last bm. He denies pain with urination. Skin is warm and dry.
[2021-09-29 11:24] LABS: Glucose Point of Care 171 mg/dL (70-110)
[2021-09-29] MEDS: insulin lispro 100 unit/1 mL SUBCUT ×2 (12:07→17:06)
--- NOTE | 2021-09-29 12:35 | P.NPUPN_ITS ---
Subjective NPU Subjective: He did not sleep well last night. He agreed to increase the trazodone to 150 mg. He has not eaten much at all since breakfast yesterday. He cannot explain why. The nurse was working hard to try to get him to eat something when I arrived to the lunchroom. He says that what he really needs is a cigarette and a beer. He says the voices continue unchanged but do not bother him. he really wants to go home. Mental Status Exam MSE Comments: This is an obese short white male in hospital scrubs with limited grooming and eye contact.? Balding on top of his head.? He is tremulous with mildly increased psychomotor activity.? Cooperative with exam in mild distress.? Speech was limited and decreased rate and volume.? Mood described as anxious and maybe confused, affect congruent.? Thought process linear with some disorganization.? Thought content: Patient denied suicidal or homicidal ideation, he reported some paranoia and did appear guarded, he denied auditory or visual hallucinations.? Attention and concentration appeared limited and memory.? Intermittently reliable but none were formally tested.? He is alert and oriented times person and place.? Insight and judgment is impaired, impulse control is impaired. Cognition: Patient Appearance: Appropriate Level of Consciousness: Awake, Alert and Follows Commands Patient Cognition Impaired: Yes Ability to Follow Directions: Good Patient Orientation (long list): Person, Place, Time and Name Comprehension Ability: Mild Impairment Hallucination Type: None Delusion Description: Not Present Thought Process: Indecisive Affect: Affect Description: Anxious, Depressed, Flat and Guarded Behavior: Patient Behavior: Appropriate and Resistive to Care Speech Pattern: Appropriate and Clear Vitals/I&O/Wt Last Vital Signs Temp 97.9 F 09/29/21 06:00 Pulse 78 09/29/21 06:00 Resp 18 09/29/21 06:00 BP 116/77 09/29/21 06:00 Pulse Ox 97 09/29/21 06:00 Data NPU : 09/24/21 00:52 09/24/21 00:52 A&P Assessment and plan (1) Suicidal ideation: Status: Acute (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 1.? Continue current medication.? He had the Invega Sustena initial injection 2 days ago. Will stop oral invega after todays dose. increase Metformin 500 mg BID. increase trazodone to 150 mg QHS. 2.? Continue every 15 minute checks for safety. 3.? Encourage individual, group and milieu therapies. 4.? Encourage sober living treatment after discharge at the highest level of care to which he is willing to commit. 5. Mother will investigate [facility] facilities. Involuntary Hold Information 96 Hour Hold: 96 Hour Involuntary Admission: No 96 Hour Hold Ending Date: 09/24/21 Attestations NPU Medical Necessity Statement*: Inpatient hospitalization is medically necessary and the clinically appropriate intervention at this time. We will initiate medications and make changes as indicated. Coding Level of Care Code Acute Managed Care Provider for Alf Fwd Diagnoses Suicidal ideation R45.851 [facility] current use of clozapine Z79.899 Major depressive disorder, recurrent, moderate F33.1 Diabetes mellitus E11.9 High risk medication use Z79.899 Myalgia M79.10 Seropositive rheumatoid arthritis of multiple sites M05.79 Other schizophrenia F20.89
[2021-09-29 14:00] VITALS: BP 111/68; PULSE 78; RESP 16; TEMP 36.4; O2SAT 98
[2021-09-29 16:36] LABS: Glucose Point of Care 151 mg/dL (70-110)
[2021-09-29] MEDS: docusate sodium 100 mg Capsule PO (20:29)
[2021-09-29] MEDS: trazodone 150 mg Tablet PO (20:29)
--- NOTE | 2021-09-30 01:50 | PC.NURSE ---
Patient is at the nurse's station looking in the little basket where we keep cream and sugar packets. When asked what he is looking for he says, Pepper. When asked what he needs pepper for he held up his empty water cup and said, To put in my water with bones. When asked where the bones are at he says, In my back. He walked away shaking his head. A few minutes he came back with his glasses to look harder for the pepper packet. He looked at one creamer packet and then walked away again. This is not the only delusional thing he has done tonight. He was laying on his bed on his side held up by his arm and elbow and he said Hey as this nurse was making rounds. When asked what he needed he said he was just watching [place] across the downing in the doorway. Later he actually went in that room and told another nurse he was looking for his shoes to walk to his parents house. He was asked if he needed something to help him sleep and he told the nurse, No thanks. I am with my dog walking to see my parents. This nurse reports that the patient has not been this delusional while caring for him since admit.
[2021-09-30 03:05] LABS: Glucose Point of Care 100 mg/dL (70-110)
[2021-09-30 05:54] VITALS: BP 121/82; PULSE 77; RESP 17; TEMP 36.4; O2SAT 98; BMI 29.9
[2021-09-30] MEDS: metformin 500 mg Tablet PO ×2 (06:13→17:56)
[2021-09-30 06:59] LABS: Glucose Point of Care 208 mg/dL (70-110)
--- NOTE | 2021-09-30 09:44 | P.NPUPN_ITS ---
Subjective NPU Subjective: He seems to be doing worse since the Clozaril has been discontinued. He has been on the Invega. He says that he does not like the Invega and that it is not good for him. He wanted to go back on the Clozaril. He still is not eating. He just had some saltine crackers last night for dinner. He said that he had a few bites of breakfast. He did not sleep well last night. Despite trazodone 150 mg. He says that he has plans to do some gardening this summer and needs to get out of here so that he can started on it. Mental Status Exam MSE Comments: This is an obese short white male in hospital scrubs with limited grooming and eye contact.? Balding on top of his head.? He is tremulous with mildly increased psychomotor activity.? Cooperative with exam in mild distress.? Speech was limited and decreased rate and volume.? Mood described as anxious and maybe confused, affect congruent.? Thought process linear with some disorganization.? Thought content: Patient denied suicidal or homicidal ideation, he reported some paranoia and did appear guarded, he denied auditory or visual hallucinations.? Attention and concentration appeared limited and memory.? Intermittently reliable but none were formally tested.? He is alert and oriented times person and place.? Insight and judgment is impaired, impulse control is impaired. Cognition: Patient Appearance: Appropriate Level of Consciousness: Awake, Alert and Follows Commands Patient Cognition Impaired: Yes Ability to Follow Directions: Good Patient Orientation (long list): Person, Place, Name and Birthday Comprehension Ability: Mild Impairment Hallucination Type: Visual Delusion Description: Not Present Thought Process: Indecisive Affect: Affect Description: Appropriate Behavior: Patient Behavior: Appropriate and Cooperative Speech Pattern: Appropriate and Clear Vitals/I&O/Wt Last Vital Signs Temp 97.6 F 09/30/21 05:54 Pulse 77 09/30/21 05:54 Resp 17 09/30/21 05:54 BP 121/82 09/30/21 05:54 Pulse Ox 98 09/30/21 05:54 Weight last 48 hrs Weight 84.368 kg Data NPU : 09/24/21 00:52 09/24/21 00:52 A&P Assessment and plan (1) Suicidal ideation: Status: Acute (2) [facility] current use of clozapine: Status: Acute (3) Major depressive disorder, recurrent, moderate: Status: Acute (4) Diabetes mellitus: Status: Acute (5) High risk medication use: Status: Acute (6) Myalgia: Status: Acute (7) Seropositive rheumatoid arthritis of multiple sites: Status: Acute (8) Other schizophrenia: Status: Acute Plan This is a 55-year-old white male with a long history of schizophrenia and significant psychiatric treatment who presents apparently off medication with thought disorder with some confusion. 1.? Continue current medication.? He had the Invega Sustena initial injection 3 days ago. Will stop oral invega after todays dose. increase Metformin 500 mg BID. increase trazodone to 20 1 mg QHS. Restart Clozaril 25 mg QAM and 50 mg QHS. 2.? Continue every 15 minute checks for safety. 3.? Encourage individual, group and milieu therapies. 4.? Encourage sober living treatment after discharge at the highest level of care to which he is willing to commit. 5. Mother will investigate [facility] facilities. Involuntary Hold Information 96 Hour Hold: 96 Hour Involuntary Admission: No 96 Hour Hold Ending Date: 09/24/21 Attestations NPU Medical Necessity Statement*: Inpatient hospitalization is medically necessary and the clinically appropriate intervention at this time. We will initiate medications and make changes as indicated. Coding Level of Care Code Acute Automatic Folder Seamer for Alf Ayala Diagnoses Suicidal ideation R45.851 [facility] current use of clozapine Z79.899 Major depressive disorder, recurrent, moderate F33.1 Diabetes mellitus E11.9 High risk medication use Z79.899 Myalgia M79.10 Seropositive rheumatoid arthritis of multiple sites M05.79 Other schizophrenia F20.89
[2021-09-30] MEDS: atorvastatin 40 mg Tablet 10 MG PO (10:07)
[2021-09-30] MEDS: buPROPion XL (24 HR) 300 mg Tablet PO (10:07)
[2021-09-30] MEDS: metoprolol tartrate 50 mg Tablet PO ×2 (10:08→17:56)
[2021-09-30] MEDS: predniSONE 5 mg Tablet PO (10:08)
[2021-09-30] MEDS: topiramate 25 mg Tablet 50 MG PO ×2 (10:08→17:56)
[2021-09-30] MEDS: paliperidone ER 6 mg Tablet PO (10:08)
[2021-09-30] MEDS: buPROPion XL (24 HR) 150 mg Tablet PO (10:09)
[2021-09-30] MEDS: insulin lispro 100 unit/1 mL SUBCUT ×3 (10:09→18:13)
[2021-09-30] MEDS: pantoprazole DR 40 mg Tablet PO (10:09)
[2021-09-30] MEDS: lisinopril 5 mg Tablet PO (10:09)
[2021-09-30 11:13] LABS: Glucose Point of Care 161 mg/dL (70-110)
[2021-09-30 13:48] VITALS: BP 102/70; PULSE 66; RESP 17; TEMP 36.4; O2SAT 98
[2021-09-30 17:35] LABS: Glucose Point of Care 249 mg/dL (70-110)
[2021-09-30] MEDS: ALPRAZolam 0.5 mg Tablet PO (17:56)
[2021-09-30 20:14] VITALS: BP 93/58; PULSE 64; RESP 20; TEMP 36.4; O2SAT 96
[2021-09-30] MEDS: cloZAPine 25 mg Tablet 50 MG PO (21:04)
[2021-09-30] MEDS: docusate sodium 100 mg Capsule PO (21:04)
[2021-09-30] MEDS: trazodone 150 mg Tablet PO (21:07)
[2021-10-01] MEDS: OLANZapine 5 mg ODT PO (01:50)
--- NOTE | 2021-10-01 04:01 | PC.NURSE ---
0150 Patient is in his room in the dark squatting down in front of the sink in his room. He is fiddling with the pipes under the sink. He says he is looking for those seeds. He stands up and is trying to open the soap dispenser. He gets soap on his hands. He moves his hands and the water automatically comes on. He grabs a paper towel real quick and goes to his bed and then begins to wipe the blanket with the paper towel. He then moves up the bed and wipes another part of the blanket. He then says he is done and crawls into bed and covers up. Patient was given Zyprexa 5 mg po for his delusional behavior and increased tactile stimuli. Medication was effective up to this note. Will monitor.
--- NOTE | 2021-10-01 05:47 | PC.NURSE ---
Patient continues to sleep.
[2021-10-01 06:00] VITALS: BP 94/60; PULSE 72; RESP 20; TEMP 36.4; O2SAT 96
[2021-10-01] MEDS: cloZAPine 25 mg Tablet PO (06:26)
[2021-10-01 06:51] LABS: Glucose Point of Care 61 mg/dL (70-110)
[2021-10-01 06:51] LABS: Glucose Point of Care 117 mg/dL (70-110)
[2021-10-01] MEDS: metformin 500 mg Tablet PO ×2 (07:29→17:05)
[2021-10-01] MEDS: paliperidone ER 6 mg Tablet PO (09:00)
[2021-10-01] MEDS: metoprolol tartrate 50 mg Tablet PO ×2 (09:00→20:37)
[2021-10-01] MEDS: buPROPion XL (24 HR) 150 mg Tablet PO (09:00)
[2021-10-01] MEDS: pantoprazole DR 40 mg Tablet PO (09:00)
[2021-10-01] MEDS: lisinopril 5 mg Tablet PO (09:00)
[2021-10-01] MEDS: buPROPion XL (24 HR) 300 mg Tablet PO (09:00)
[2021-10-01] MEDS: predniSONE 5 mg Tablet PO (09:00)
[2021-10-01] MEDS: atorvastatin 40 mg Tablet 10 MG PO (09:00)
[2021-10-01] MEDS: topiramate 25 mg Tablet 50 MG PO ×2 (09:01→20:37)
[2021-10-01 11:37] LABS: Glucose Point of Care 163 mg/dL (70-110)
--- NOTE | 2021-10-01 11:41 | NPU.GN ---
[facility] Group Topic:Santino Aguila General Mood of Group: Bassam did not attend group today.
[2021-10-01] MEDS: insulin lispro 100 unit/1 mL SUBCUT (11:59)
[2021-10-01 14:00] VITALS: BP 108/61; PULSE 69; RESP 17; TEMP 37; O2SAT 98
--- NOTE | 2021-10-01 14:33 | W.PM.NPUPNS ---
Subjective NPU Subjective: He is still not eating. He was sitting under his sink at 1:30 AM. They gave him some Zyprexa Zydis and he went to sleep after that. He says that he needs to go home. He says that he does not want to take any more injections. He was told that we did not think that the Invega was working for him and changed him back to the Clozaril. That was a few days to take effect. Mental Status Exam MSE Comments: This is an obese short white male in hospital scrubs with limited grooming and eye contact.? Balding on top of his head.? He is tremulous with mildly increased psychomotor activity.? Cooperative with exam in mild distress.? Speech was limited and decreased rate and volume.? Mood described as anxious and maybe confused, affect congruent.? Thought process linear with some disorganization.? Thought content: Patient denied suicidal or homicidal ideation, he reported some paranoia and did appear guarded, he denied auditory or visual hallucinations.? Attention and concentration appeared limited and memory.? Intermittently reliable but none were formally tested.? He is alert and oriented times person and place.? Insight and judgment is impaired, impulse control is impaired. Cognition: Patient Appearance: Appropriate Level of Consciousness: Awake, Alert and Follows Commands Patient Cognition Impaired: Yes Ability to Follow Directions: Good Patient Orientation (long list): Person, Place, Name and Birthday Comprehension Ability: Mild Impairment Hallucination Type: None Delusion Description: Not Present Thought Process: Indecisive Affect: Affect Description: Depressed and Flat Behavior: Patient Behavior: Withdrawn Speech Pattern: Rambling and Slurred Vitals/I&O/Wt Last Vital Signs Temp 97.5 F L 10/01/21 06:00 Pulse 72 10/01/21 06:00 Resp 20 H 10/01/21 06:00 BP 94/60 10/01/21 06:00 Pulse Ox 96 10/01/21 06:00 Weight last 48 hrs Weight 84.368 kg Data NPU : 09/24/21 00:52 09/24/21 00:52 A&P Assessment and plan (1) Suicidal ideation: Status: Acute (2) intermediate current use of clozapine: Status: Acute (3) Major depressive disorder, recurrent, moderate: Status: Acute (4) Diabetes mellitus: Status: Acute (5) High risk medication use: Status: Acute (6) Myalgia: Status: Acute (7) Seropositive rheumatoid arthritis of multiple sites: Status: Acute (8) Other schizophrenia: Status: Acute Plan This is a 55-year-old white male with a long history of schizophrenia and significant psychiatric treatment who presents apparently off medication with thought disorder with some confusion. 1.? Continue current medication.? He had the Invega Sustena initial injection 3 days ago. Will stop oral invega after todays dose. increase Metformin 500 mg BID. increase trazodone to 200 mg QHS. Invega does not seem to be working restart Clozaril 25 mg QAM and 50 mg QHS. 2.? Continue every 15 minute checks for safety. 3.? Encourage individual, group and milieu therapies. 4.? Encourage sober living treatment after discharge at the highest level of care to which he is willing to commit. 5. Mother will investigate [facility] facilities. Involuntary Hold Information 96 Hour Hold: 96 Hour Involuntary Admission: No 96 Hour Hold Ending Date: 09/24/21 Attestations NPU Medical Necessity Statement*: Inpatient hospitalization is medically necessary and the clinically appropriate intervention at this time. We will initiate medications and make changes as indicated. Coding Level of Care Code Acute Nsh Teacher for Alf Fwvivi Diagnoses Suicidal ideation R45.851 intermediate current use of clozapine Z79.899 Major depressive disorder, recurrent, moderate F33.1 Diabetes mellitus E11.9 High risk medication use Z79.899 Myalgia M79.10 Seropositive rheumatoid arthritis of multiple sites M05.79 Other schizophrenia F20.89
[2021-10-01 16:35] LABS: Glucose Point of Care 126 mg/dL (70-110)
[2021-10-01 20:14] VITALS: BP 90/57; PULSE 90; RESP 16; TEMP 36.3; O2SAT 96
[2021-10-01 20:28] LABS: Glucose Point of Care 97 mg/dL (70-110)
[2021-10-01] MEDS: cloZAPine 25 mg Tablet 50 MG PO (20:36)
[2021-10-01] MEDS: docusate sodium 100 mg Capsule PO (20:36)
[2021-10-02 06:00] VITALS: BP 87/64; PULSE 78; RESP 16; TEMP 36.3; O2SAT 96
[2021-10-02] MEDS: cloZAPine 25 mg Tablet PO (07:09)
[2021-10-02] MEDS: metformin 500 mg Tablet PO ×2 (07:10→16:57)
[2021-10-02] MEDS: atorvastatin 40 mg Tablet 10 MG PO (09:39)
[2021-10-02] MEDS: buPROPion XL (24 HR) 150 mg Tablet PO (09:39)
[2021-10-02] MEDS: buPROPion XL (24 HR) 300 mg Tablet PO (09:39)
[2021-10-02] MEDS: lisinopril 5 mg Tablet PO (09:40)
[2021-10-02] MEDS: pantoprazole DR 40 mg Tablet PO (09:40)
[2021-10-02] MEDS: insulin lispro 100 unit/1 mL SUBCUT (09:40)
[2021-10-02] MEDS: topiramate 25 mg Tablet 50 MG PO ×2 (09:40→20:46)
[2021-10-02] MEDS: metoprolol tartrate 50 mg Tablet PO ×2 (09:40→20:46)
[2021-10-02] MEDS: predniSONE 5 mg Tablet PO (09:40)
--- NOTE | 2021-10-02 11:31 | NPU.GN ---
[facility] Topic: Roll The Dice General Mood of Group: Bassam did attend group at first and then left in the middle of it. His hygiene is poor and he is very quiet.
[2021-10-02] MEDS: ALPRAZolam 0.5 mg Tablet PO ×2 (11:34→20:45)
[2021-10-02 12:00] LABS: Glucose Point of Care 171 mg/dL (70-110)
--- NOTE | 2021-10-02 12:28 | W.PM.NPUPNS ---
Subjective NPU Subjective: He says that he is doing a little better. He slept better last night. He has been eating more. He has still been complaining that he is not going to the bathroom. He refuses a suppository. He still wants to go home to get some beer and a cigarette occasionally. He was reluctantly agreeable to wait another few days until the Clozaril starts working better. Mental Status Exam MSE Comments: This is an obese short white male in hospital scrubs with limited grooming and eye contact.? Balding on top of his head.? He is tremulous with mildly increased psychomotor activity.? Cooperative with exam in mild distress.? Speech was limited and decreased rate and volume.? Mood described as anxious and maybe confused, affect congruent.? Thought process linear with some disorganization.? Thought content: Patient denied suicidal or homicidal ideation, he reported some paranoia and did appear guarded, he denied auditory or visual hallucinations.? Attention and concentration appeared limited and memory.? Intermittently reliable but none were formally tested.? He is alert and oriented times person and place.? Insight and judgment is impaired, impulse control is impaired. Cognition: Patient Appearance: Disheveled/Poor Hygiene Level of Consciousness: Awake, Alert and Follows Commands Patient Cognition Impaired: Yes Ability to Follow Directions: Good Patient Orientation (long list): Person, Place, Name and Birthday Comprehension Ability: Mild Impairment Hallucination Type: None Delusion Description: Not Present Thought Process: Disorganized and Indecisive Affect: Affect Description: Flat Behavior: Patient Behavior: Withdrawn Speech Pattern: Mumbled and Rambling Vitals/I&O/Wt Last Vital Signs Temp 97.3 F L 10/02/21 06:00 Pulse 78 10/02/21 06:00 Resp 16 10/02/21 06:00 BP 87/64 10/02/21 06:00 Pulse Ox 96 10/02/21 06:00 Data NPU : 09/24/21 00:52 09/24/21 00:52 A&P Assessment and plan (1) Suicidal ideation: Status: Acute (2) nursing home current use of clozapine: Status: Acute (3) Major depressive disorder, recurrent, moderate: Status: Acute (4) Diabetes mellitus: Status: Acute (5) High risk medication use: Status: Acute (6) Myalgia: Status: Acute (7) Seropositive rheumatoid arthritis of multiple sites: Status: Acute (8) Other schizophrenia: Status: Acute Plan This is a 55-year-old white male with a long history of schizophrenia and significant psychiatric treatment who presents apparently off medication with thought disorder with some confusion.We tried Invega but that does not seem to work and we have gone back to the Clozaril. 1.? Continue current medication.? He had the Invega Sustena initial injection 5 days ago. Stopped invega oral dose. increase Metformin 500 mg BID. increase trazodone to 200 mg QHS. restart Clozaril 25 mg QAM and 50 mg QHS. 2.? Continue every 15 minute checks for safety. 3.? Encourage individual, group and milieu therapies. 4.? Encourage sober living treatment after discharge at the highest level of care to which he is willing to commit. 5. Mother will investigate [facility] facilities. Involuntary Hold Information 96 Hour Hold: 96 Hour Involuntary Admission: No 96 Hour Hold Ending Date: 09/24/21 Attestations NPU Medical Necessity Statement*: Inpatient hospitalization is medically necessary and the clinically appropriate intervention at this time. We will initiate medications and make changes as indicated. Coding Level of Care Code Acute Construction Site Manager for Deangelog Fwd Diagnoses Suicidal ideation R45.851 nursing home current use of clozapine Z79.899 Major depressive disorder, recurrent, moderate F33.1 Diabetes mellitus E11.9 High risk medication use Z79.899 Myalgia M79.10 Seropositive rheumatoid arthritis of multiple sites M05.79 Other schizophrenia F20.89
[2021-10-02 14:00] VITALS: BP 97/68; PULSE 78; RESP 18; TEMP 36.9; O2SAT 98
--- NOTE | 2021-10-02 14:46 | PC.NURSE ---
Pt refused miralax and milk of mag both for constipation. Pt stated to nurse that he hasn't had a bowel movement in 5 days.
--- NOTE | 2021-10-02 15:38 | PC.NURSE ---
Mother Tigist Post says that she will be taking Bassam home on discharge. Medication changes discussed. She would like for Dr Harmon to call her tomorrow [phone].
[2021-10-02 17:30] LABS: Glucose Point of Care 204 mg/dL (70-110)
--- NOTE | 2021-10-02 17:52 | PC.NURSE ---
Pt refused 6 units of insulin which was required with a 204 Blood Sugar. Nurse educated pt on the benefits of insulin, encouraged pt to take, pt still refused.
[2021-10-02] MEDS: docusate sodium 100 mg Capsule PO (20:46)
[2021-10-02] MEDS: cloZAPine 25 mg Tablet 50 MG PO (20:46)
[2021-10-02 20:56] LABS: Glucose Point of Care 148 mg/dL (70-110)
[2021-10-02 21:08] VITALS: BP 99/66; PULSE 77; RESP 18; TEMP 36.6; O2SAT 95
[2021-10-03 06:00] VITALS: BP 131/94; PULSE 85; RESP 18; TEMP 36.4; O2SAT 97
[2021-10-03 06:51] LABS: Glucose Point of Care 172 mg/dL (70-110)
[2021-10-03] MEDS: metformin 500 mg Tablet PO ×2 (09:33→17:45)
[2021-10-03] MEDS: predniSONE 5 mg Tablet PO (09:33)
[2021-10-03] MEDS: cloZAPine 25 mg Tablet PO (09:34)
[2021-10-03] MEDS: buPROPion XL (24 HR) 150 mg Tablet PO (09:34)
[2021-10-03] MEDS: atorvastatin 40 mg Tablet 10 MG PO (09:34)
[2021-10-03] MEDS: metoprolol tartrate 50 mg Tablet PO ×2 (09:34→20:57)
[2021-10-03] MEDS: topiramate 25 mg Tablet 50 MG PO ×2 (09:34→20:57)
[2021-10-03] MEDS: pantoprazole DR 40 mg Tablet PO (09:35)
[2021-10-03] MEDS: buPROPion XL (24 HR) 300 mg Tablet PO (09:35)
[2021-10-03] MEDS: lisinopril 5 mg Tablet PO (09:35)
[2021-10-03] MEDS: polyethylene glycol 3350 Pkt 17 gm PO (09:35)
[2021-10-03 11:04] LABS: Glucose Point of Care 193 mg/dL (70-110)
--- NOTE | 2021-10-03 11:38 | NPU.GN ---
[facility] Topic:Coping Mechanisms Activity General Mood of Group: Bassam popped in group for a few minutes then left.
--- NOTE | 2021-10-03 11:56 | W.PM.NPUPNS ---
Subjective NPU Subjective: He says that he is doing a little better. He slept better again last night. He has been eating more. He still wants to go home to get some beer and a cigarette occasionally. He was reluctantly agreeable to wait another few days until the Clozaril starts working better. I spoke with his mother and she is agreeable to the Clozaril. She is concerned about him not taking the insulin injections and was informed that the Metformin was increased and could be increased further. She agrees for him to come home on Friday. Mental Status Exam MSE Comments: This is an obese short white male in hospital scrubs with limited grooming and eye contact.? Balding on top of his head.? He is tremulous with mildly increased psychomotor activity.? Cooperative with exam in mild distress.? Speech was limited and decreased rate and volume.? Mood described as anxious and maybe confused, affect congruent.? Thought process linear with some disorganization.? Thought content: Patient denied suicidal or homicidal ideation, he reported some paranoia and did appear guarded, he denied auditory or visual hallucinations.? Attention and concentration appeared limited and memory.? Intermittently reliable but none were formally tested.? He is alert and oriented times person and place.? Insight and judgment is impaired, impulse control is impaired. Cognition: Patient Appearance: Disheveled/Poor Hygiene Level of Consciousness: Awake, Alert and Follows Commands Patient Cognition Impaired: Yes Ability to Follow Directions: Good Patient Orientation (long list): Person, Place, Name and Birthday Comprehension Ability: Mild Impairment Hallucination Type: None Delusion Description: Not Present Thought Process: Disorganized and Indecisive Affect: Affect Description: Anxious, [place], Depressed and Flat Behavior: Patient Behavior: Appropriate and Cooperative Speech Pattern: Appropriate and Clear Vitals/I&O/Wt Last Vital Signs Temp 97.5 F L 10/03/21 06:00 Pulse 85 10/03/21 06:00 Resp 18 10/03/21 06:00 BP 131/94 10/03/21 06:00 Pulse Ox 97 10/03/21 06:00 Data NPU : 09/24/21 00:52 09/24/21 00:52 A&P Assessment and plan (1) Suicidal ideation: Status: Acute (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 1.? Continue current medication.? He had the Invega Sustena initial injection 6 days ago. Invega does not seem to work for him. Stopped invega oral dose. increase Metformin 500 mg BID. increase trazodone to 200 mg QHS. restart Clozaril 25 mg QAM and 50 mg QHS. 2.? Continue every 15 minute checks for safety. 3.? Encourage individual, group and milieu therapies. 4.? Encourage sober living treatment after discharge at the highest level of care to which he is willing to commit. 5. Mother will investigate [facility] facilities. Involuntary Hold Information 96 Hour Hold: 96 Hour Involuntary Admission: No 96 Hour Hold Ending Date: 09/24/21 Attestations U Medical Necessity Statement*: Inpatient hospitalization is medically necessary and the clinically appropriate intervention at this time. We will initiate medications and make changes as indicated. 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
[2021-10-03 14:00] VITALS: BP 98/70; PULSE 80; RESP 19; TEMP 36.8; O2SAT 97
[2021-10-03 16:55] LABS: Glucose Point of Care 191 mg/dL (70-110)
--- NOTE | 2021-10-03 18:31 | PC.NURSE ---
staff encouraged pt to shower and pt declined.
[2021-10-03 20:42] LABS: Glucose Point of Care 167 mg/dL (70-110)
[2021-10-03] MEDS: docusate sodium 100 mg Capsule PO (20:57)
[2021-10-03] MEDS: cloZAPine 25 mg Tablet 50 MG PO (20:57)
[2021-10-03 21:07] VITALS: BP 105/73; PULSE 85; RESP 16; TEMP 36.7; O2SAT 97
[2021-10-04] MEDS: ALPRAZolam 0.5 mg Tablet PO (02:48)
[2021-10-04 06:00] VITALS: BP 106/71; PULSE 74; RESP 16; TEMP 36.3; O2SAT 94
[2021-10-04] MEDS: metformin 500 mg Tablet PO ×2 (06:05→17:02)
[2021-10-04 07:05] LABS: Glucose Point of Care 260 mg/dL (70-110)
[2021-10-04] MEDS: buPROPion XL (24 HR) 150 mg Tablet PO (09:35)
[2021-10-04] MEDS: cloZAPine 25 mg Tablet PO (09:35)
[2021-10-04] MEDS: atorvastatin 40 mg Tablet 10 MG PO (09:35)
[2021-10-04] MEDS: topiramate 25 mg Tablet 50 MG PO ×2 (09:35→20:35)
[2021-10-04] MEDS: predniSONE 5 mg Tablet PO (09:36)
[2021-10-04] MEDS: lisinopril 5 mg Tablet PO (09:36)
[2021-10-04] MEDS: metoprolol tartrate 50 mg Tablet PO ×2 (09:36→20:35)
[2021-10-04] MEDS: buPROPion XL (24 HR) 300 mg Tablet PO (09:36)
[2021-10-04] MEDS: pantoprazole DR 40 mg Tablet PO (09:36)
[2021-10-04] MEDS: polyethylene glycol 3350 Pkt 17 gm PO (09:36)
--- NOTE | 2021-10-04 10:06 | P.NPUPN_ITS ---
Subjective NPU Subjective: He says that he is doing a little better. I saw him sitting with the other patients chatting before breakfast this morning which is very new. He slept better again last night. He has been eating more. He still wants to go home to get some beer and a cigarette occasionally. He was reluctantly agreeable to wait another few days until the Clozaril starts working better. I spoke with his mother and she is agreeable to the Clozaril. She is concerned about him not taking the insulin injections and was informed that the Metformin was increased and could be increased further. She agrees for him to come home on Friday. Mental Status Exam MSE Comments: This is an obese short white male in hospital scrubs with limited grooming and eye contact.? Balding on top of his head.? He is tremulous with mildly increased psychomotor activity.? Cooperative with exam in mild distress.? Speech was limited and decreased rate and volume.? Mood described as good, affect congruent.? Thought process linear with some disorganization.? Thought content: Patient denied suicidal or homicidal ideation, he reported some paranoia and did appear guarded, he denied auditory or visual hallucinations.? Attention and concentration appeared limited and memory.? He is alert and oriented times person and place.? Insight and judgment is impaired, impulse control is impaired. Cognition: Patient Appearance: Disheveled/Poor Hygiene Level of Consciousness: Awake, Alert and Follows Commands Patient Cognition Impaired: Yes Ability to Follow Directions: Good Patient Orientation (long list): Person, Place, Name and Birthday Comprehension Ability: Mild Impairment Hallucination Type: None Delusion Description: Not Present Thought Process: Disorganized and Indecisive Affect: Affect Description: Anxious, [place], Depressed and Flat Behavior: Patient Behavior: Appropriate and Cooperative Speech Pattern: Clear Vitals/I&O/Wt Last Vital Signs Temp 97.3 F L 10/04/21 06:00 Pulse 74 10/04/21 06:00 Resp 16 10/04/21 06:00 BP 106/71 10/04/21 06:00 Pulse Ox 94 10/04/21 06:00 Data NPU : 09/24/21 00:52 09/24/21 00:52 A&P Assessment and plan (1) Suicidal ideation: Status: Acute (2) nursing home current use of clozapine: Status: Acute (3) Major depressive disorder, recurrent, moderate: Status: Acute (4) Diabetes mellitus: Status: Acute (5) High risk medication use: Status: Acute (6) Myalgia: Status: Acute (7) Seropositive rheumatoid arthritis of multiple sites: Status: Acute (8) Other schizophrenia: Status: Acute Plan This is a 55-year-old white male with a long history of schizophrenia and significant psychiatric treatment who presents apparently off medication with thought disorder with some confusion.We tried Invega but that does not seem to work and we have gone back to the Clozaril. 1.? Continue current medication.? He had the Invega Sustena initial injection 6 days ago. Invega does not seem to work for him. Stopped invega oral dose. increase Metformin 500 mg BID. increase trazodone to 200 mg QHS. restart Clozaril 25 mg QAM and 50 mg QHS. 2.? Continue every 15 minute checks for safety. 3.? Encourage individual, group and milieu therapies. 4.? Encourage sober living treatment after discharge at the highest level of care to which he is willing to commit. 5. Mother will investigate [facility] facilities. Involuntary Hold Information 96 Hour Hold: 96 Hour Involuntary Admission: No 96 Hour Hold Ending Date: 09/24/21 Attestations U Medical Necessity Statement*: Inpatient hospitalization is medically necessary and the clinically appropriate intervention at this time. We will initiate medications and make changes as indicated. Coding Level of Care Code Acute Benefits Coordinator for Alf Ayala Diagnoses Suicidal ideation R45.851 long term current use of clozapine Z79.899 Major depressive disorder, recurrent, moderate F33.1 Diabetes mellitus E11.9 High risk medication use Z79.899 Myalgia M79.10 Seropositive rheumatoid arthritis of multiple sites M05.79 Other schizophrenia F20.89
[2021-10-04 11:38] LABS: Glucose Point of Care 197 mg/dL (70-110)
[2021-10-04 13:56] VITALS: BP 105/73; PULSE 80; RESP 16; TEMP 36.5; O2SAT 98
--- NOTE | 2021-10-04 15:14 | PC.NURSE ---
PT REFUSING INSULIN INJECTIONS TODAY. NURSING STAFF HAS GIVEN ONE ON ONE EDUCATION AND ENCOURAGEMENT TO NO EFFECT. STATES THAT HE WILL NOT TAKE ANY LIQUID MEDICATIONS INJECTED . DID TAKE PO DIABETIC MEDS. NOTIFIED.
[2021-10-04 16:16] LABS: Glucose Point of Care 246 mg/dL (70-110)
[2021-10-04] MEDS: insulin lispro 100 unit/1 mL SUBCUT (17:03)
[2021-10-04] MEDS: trazodone 100 mg Tablet 200 MG PO (20:35)
[2021-10-04] MEDS: cloZAPine 25 mg Tablet 50 MG PO (20:35)
[2021-10-04] MEDS: docusate sodium 100 mg Capsule PO (20:36)
[2021-10-04 21:01] LABS: Glucose Point of Care 133 mg/dL (70-110)
[2021-10-04 22:00] VITALS: BP 111/77; PULSE 89; RESP 18; TEMP 36.4; O2SAT 96
[2021-10-05 06:00] VITALS: BP 87/63; PULSE 79; RESP 18; O2SAT 97
[2021-10-05] MEDS: metformin 500 mg Tablet PO (06:10)
[2021-10-05 06:16] LABS: Glucose Point of Care 124 mg/dL (70-110)
[2021-10-05] MEDS: topiramate 25 mg Tablet 50 MG PO (09:01)
[2021-10-05] MEDS: atorvastatin 40 mg Tablet 10 MG PO (09:02)
[2021-10-05] MEDS: buPROPion XL (24 HR) 150 mg Tablet PO (09:02)
[2021-10-05] MEDS: buPROPion XL (24 HR) 300 mg Tablet PO (09:03)
[2021-10-05] MEDS: cloZAPine 25 mg Tablet PO (09:05)
[2021-10-05] MEDS: metoprolol tartrate 50 mg Tablet PO (09:06)
[2021-10-05] MEDS: predniSONE 5 mg Tablet PO (09:06)
[2021-10-05] MEDS: lisinopril 5 mg Tablet PO (09:06)
[2021-10-05] MEDS: pantoprazole DR 40 mg Tablet PO (09:06)
[2021-10-05 09:54] VITALS: BP 87/63; PULSE 79; RESP 18; O2SAT 97
--- NOTE | 2021-10-05 10:04 | DCPLANNER ---
Imm completed with patient and given copy of Medicaid rights
--- NOTE | 2021-10-05 10:07 | DCPLANNER ---
Imm completed with patient and given copy of Medicaid rights
--- NOTE | 2021-10-05 10:50 | P.NPUDS_ITS ---
Diagnoses at Discharge Discharge Diagnosis (1) Suicidal ideation: Status: Acute (2) long-term current use of clozapine: Status: Acute (3) Major depressive disorder, recurrent, moderate: Status: Acute (4) Diabetes mellitus: Status: Acute (5) High risk medication use: Status: Acute (6) Myalgia: Status: Acute (7) Seropositive rheumatoid arthritis of multiple sites: Status: Acute (8) Other schizophrenia: Status: Acute Reason for Visit Reason for Visit: Psychiatric Symptoms Brief History: 55-year-old gentleman with a history of schizophrenia.? He has had increased stress over a personal argument with his brother lately, and has stopped taking his medications of late.? He has been experiencing worsening depression, suicidality, and some hallucinations.? His father brought him in this morning for the symptoms.? He has no specific plan for suicide. MD complaint: suicidal ideation and feels depressed Onset (ago): day(s) Duration: constant and getting worse History of same: Yes Relieving factors: none Exacerbating factors: none Context: not taking psychiatric medications Associated psychiatric symptoms: depression and suicidal ideation Associated symptoms: Reports auditory hallucinations, depression and suicidal ideation; Deny delusions or homicidal ideation Treatments prior to arrival: none If self harm: admits thoughts of self harm He was admitted to the neuropsychiatric unit for definitive treatment of those issues.? He presents today as a poor historian answering questions often with I do not know. ? He reports he is been hospitalized multiple times psychiatrically maybe 4-5 times with at least the last hospitalization being here.? He reports outpatient services at [facility].? He reports that he has not been compliant with his medication and could not give me the medications names.? He reports that he chews about half a can a day, reports that he does not all around them but denies marijuana or illicit drugs.? He is never been to rehab or had a DUI.? He reports that he thinks the reason why he is here is that he had a stroke but he could not give me clarity as to why he was here.? He reports that he was trying to do something and got confused and that is possible that one of his family members thought he needed to be here.? He denied suicide attempts or self- injurious behaviors.? He reports that he has been going to [employer] and trying to get religiously better.? Logically said did not make sense except for when he answered some questions directly.? An excerpt from his last hospitalization is included below for context. Hospital Course Hospital Course He slowly acclimated to the individual, group and milieu therapies provided. He was initially started on Invega at the request of his guardian but seemed to actually deteriorate with the Invega. He was started back on the Clozaril but at a lower dose than he was on previously., 25 in the morning and 50 at bedtime. He tolerated these doses and showed steady improvement during his stay. He was able to contract for safety outside hospital prior to discharge. During the hospitalization, patient had routine laboratory studies which were within normal limits except for few outliers. Additionally there was a general medical evaluation which was also within normal limits and revealed no new acute processes. Discharge Summary: At the time of discharge, lethality was denied and psychosis was resolving. Mood and anxiety were well managed. Patient endorsed a plan to follow-up with the aftercare recommendations of the treatment team. Patient was evaluated and deemed to be absent credible lethality, and had achieved the maximum benefit from an inpatient hospitalization, so was discharged. Involuntary Hold Information 96 Hour Hold: 96 Hour Involuntary Admission: No 96 Hour Hold Ending Date: 09/24/21 Mental Status Exam MSE Comments: This is an obese short white male in hospital scrubs with limited grooming and eye contact.? Balding on top of his head.? He is tremulous with mildly increased psychomotor activity.? Cooperative with exam in mild distress.? Speech was limited and decreased rate and volume.? Mood described as good, affect congruent.? Thought process linear with some disorganization.? Thought content: Patient denied suicidal or homicidal ideation, he reported some paranoia and did appear guarded, he denied auditory or visual hallucinations.? Attention and concentration appeared limited and memory.? He is alert and oriented times person and place.? Insight and judgment is impaired, impulse control is impaired. Cognition: Patient Appearance: Disheveled/Poor Hygiene Level of Consciousness: Awake and Alert Patient Cognition Impaired: Yes Ability to Follow Directions: Good Patient Orientation (long list): Person, Place, Time and Birthday Comprehension Ability: Mild Impairment Hallucination Type: None Delusion Description: Not Present Thought Process: Indecisive and Loose Associations Affect: Affect Description: [place] Behavior: Patient Behavior: Appropriate and Cooperative Speech Pattern: Appropriate and Clear Discharge Data Studies Completed and Pending: Laboratory Results WBC 8.1 10^3/uL (4.0- 10.0) 09/24/21 00:52 RBC 5.60 10^6/uL (4.1 -5.3) H 09/24/21 00:52 Hgb 15.9 g/dL (11.7-1 6.6) 09/24/21 00:52 Hct 49.9 % (42.0-52.0 ) 09/24/21 00:52 MCV 89.1 fl (80-94) 09/24/21 00:52 MCH 28.4 pg (28.0-34. 0) 09/24/21 00:52 MCHC 31.9 g/dL (30.0-3 6.0) 09/24/21 00:52 RDW 13.2 % (12.1-15.1 ) 09/24/21 00:52 Plt Count 292 10^3/cmm (130 -400) 09/24/21 00:52 MPV 9.2 fL (7.4-10.4) 09/24/21 00:52 Neut % (Auto) 57.7 % 09/24/21 00:52 Lymph % (Auto) 33.2 % 09/24/21 00:52 [place] % (Auto) 6.8 % 09/24/21 00:52 Eos % (Auto) 1.8 % 09/24/21 00:52 Baso % (Auto) 0.4 % 09/24/21 00:52 Neut # (Auto) 4.70 10^3/uL (1.8 -7.7) 09/24/21 00:52 Lymph # (Auto) 2.7 10^3/uL (0.8- 4.8) 09/24/21 00:52 [place] # (Auto) 0.6 10^3/uL (0.2- 0.9) 09/24/21 00:52 Eos # (Auto) 0.2 10^3/uL (0.0- 0.8) 09/24/21 00:52 Baso # (Auto) 0.0 10^3/uL (0.0- 0.1) 09/24/21 00:52 Nucleated RBC % (a uto) 0 % 09/24/21 00:52 Nucleated RBCs # 0.0 /100WBC 09/24/21 00:52 Sodium 137 mmol/L (136-1 45) 09/24/21 00:52 Potassium 4.0 mmol/L (3.5-5 .1) 09/24/21 00:52 Chloride 97 mmol/L (98-107 ) L 09/24/21 00:52 Carbon Dioxide 24 mmol/L (22-29) 09/24/21 00:52 Anion Gap 20.0 (5-19) H 09/24/21 00:52 BUN 15 mg/dL (6-20) 09/24/21 00:52 Creatinine 1.1 mg/dL (0.7-1. 2) 09/24/21 00:52 GFR Calculation 70.0 mL/min (90-1 30) L 09/24/21 00:52 Glucose 236 mg/dL (65-115 ) H 09/24/21 00:52 POC Glucose 124 mg/dL (70-110 ) H 10/05/21 06:12 Calculated Osmolal ity 292 mOsm/kg (285- 295) 09/24/21 00:52 Calcium 9.5 mg/dL (8.5-10 .5) 09/24/21 00:52 Total Bilirubin 0.7 mg/dL (0.15-1 .2) 09/24/21 00:52 AST 23 U/L (0-40) 09/24/21 00:52 ALT 45 U/L (0-41) H 09/24/21 00:52 Alkaline Phosphata se 85 IU/L (40-130) 09/24/21 00:52 Total Protein 7.6 g/dL (6.6-8.7 ) 09/24/21 00:52 Albumin 4.9 g/dL (3.5-5.2 ) 09/24/21 00:52 Globulin 2.7 g/dL (1.3-4.6 ) 09/24/21 00:52 Salicylates < 0.3 mg/dL (3-10 ) L 09/24/21 00:52 Acetaminophen < 5.0 ug/mL (10-3 0) L 09/24/21 00:52 Ethyl Alcohol < 10 mg/dL (0-10) 09/24/21 00:52 Vitals: Last Vital Signs Temp 97.5 F L 10/04/21 22:00 Pulse 79 10/05/21 09:54 Resp 18 10/05/21 09:54 BP 87/63 10/05/21 09:54 Pulse Ox 97 10/05/21 09:54 Discharge Plan Discharge Patient Disposition: Home Condition: Stable Prescriptions: New trazodone 100 mg Tablet 200 mg PO BEDTIME PRN (Reason: Sleep) 30 Days Qty: 60 1RF clozapine 25 mg Tablet 50 mg PO BEDTIME 30 Days Qty: 30 1RF Continued atorvastatin 10 mg tablet 10 mg PO DAILY 0RF metoprolol tartrate 50 mg tablet 50 mg PO BID 0RF metformin 1,000 mg tablet 500 mg PO DAILY 0RF lisinopril 5 mg tablet 5 mg PO DAILY 0RF tramadol 50 mg tablet 50 mg PO TID PRN (Reason: pain) Qty: 60 1RF prednisone 5 mg tablet 5 mg PO DAILY Qty: 90 1RF alprazolam 0.5 mg tablet 0.5 mg PO BID PRN (Reason: anxiety) Qty: 60 2RF bupropion HCl [Wellbutrin XL] 300 mg tablet extended release 24 hr 300 mg PO QAM Qty: 30 2RF bupropion HCl [Wellbutrin XL] 150 mg tablet extended release 24 hr 150 mg PO QAM Qty: 30 2RF topiramate [Topamax] 50 mg tablet 50 mg PO BID Qty: 60 2RF pantoprazole 40 mg tablet,delayed release (DR/EC) 40 mg PO DAILY 0RF Changed clozapine 25 mg tablet 25 mg PO QAM 30 Days Qty: 30 2RF trihexyphenidyl 2 mg tablet 4 mg PO BEDTIME 30 Days Qty: 60 1RF Discharge Orders: Discharge Order (Routine); Ordered 10/05/21 Ordered By: Ward Harmon Referrals: Ayesha Rice PMHNP [Staff Physician] - 10/01/21 2:15 pm Avery March MD [Primary Care Provider] - 10/01/21 3:15 pm Discharge Diet: Diabetic Discharge Activity: Resume usual activity Patient Instructions: Trazodone (By mouth), Clozapine (By mouth) (Clozaril, FazaClo, Versacloz), Depression (DC), Suicide Prevention (DC), Opioid Safety Discharge Attestations NPU Time Spent in Discharge Care*: less than 30 min Specific Discharge Activities: Specific discharge activities: educating patient, discussing with insurance case manager/social workers/dc planners, documenting/other paperwork and evaluating patient/reviewing data Coding Level of Care Code Acute Chg FW DC note Diagnoses Suicidal ideation R45.851 long-term current use of clozapine Z79.899 Major depressive disorder, recurrent, moderate F33.1 Diabetes mellitus E11.9 High risk medication use Z79.899 Myalgia M79.10 Seropositive rheumatoid arthritis of multiple sites M05.79 Other schizophrenia F20.89
--- NOTE | 2021-10-05 11:41 | PC.NURSE ---
Attempt to notify [employer] Post that patients labs do need to be redrawn for clozaril therapy.
== END 2021-10-05 11:30 | disposition home or self-care (01) | DRG 885 ==
LOC: ER 07:28 → NP 07:32
PROVIDERS: Admitting Provider Psychiatry & Neurology Psychiatry; Emergency Provider Emergency Medicine; PCP Family Medicine; Visit Provider Psychiatry & Neurology Psychiatry
DX: F20.89 Other schizophrenia (principal); F33.1 Major depressive disorder, recurrent, moderate; R45.851 Suicidal ideations; Z79.899 Other long term (current) drug therapy; E11.9 Type 2 diabetes mellitus without complications; M05.79 Rheumatoid arthritis with rheumatoid factor of multiple sites without organ or systems involvement; Z63.8 Other specified problems related to primary support group; Z87.891 Personal history of nicotine dependence; Z91.14 Patient's other noncompliance with medication regimen
CPT/HCPCS: 36416; 80053; 80307; 82962; 85025; 96361; 96372; 96374; 97150; 97165; 99285; J1815; J7512

== ENCOUNTER → 2021-10-08 11:59 | Outpatient (BNVA) | payer MEDICARE, MEDICAID, SELFPAY ==
[2020-05-23 14:39] VITALS: BP 147/98; BMI 32.2
== END ==
PROVIDERS: PCP Family Medicine; Visit Provider Nurse Practitioner
DX: F20.89 Other schizophrenia (principal); Z79.899 Other long term (current) drug therapy
CPT/HCPCS: 85007; 85027

== ENCOUNTER → 2021-10-11 13:52 | Outpatient (BNVA) | payer MEDICARE, MEDICAID, SELFPAY ==
[2020-05-23 14:39] VITALS: BP 147/98; BMI 32.2
== END ==
PROVIDERS: PCP Family Medicine; Visit Provider Nurse Practitioner
DX: F20.89 Other schizophrenia (principal); F33.1 Major depressive disorder, recurrent, moderate
CPT/HCPCS: 99214

== ENCOUNTER → 2021-11-07 14:04 | Outpatient (BNVA) | payer MEDICARE, MEDICAID, SELFPAY ==
[2020-05-23 14:39] VITALS: BP 147/98; BMI 32.2
== END ==
PROVIDERS: PCP Family Medicine; Visit Provider Nurse Practitioner
DX: F20.89 Other schizophrenia (principal); F33.1 Major depressive disorder, recurrent, moderate; Z79.899 Other long term (current) drug therapy
CPT/HCPCS: 85007; 85027; 99214

== ENCOUNTER → 2021-12-05 13:03 | Outpatient (BNVA) | payer MEDICARE, MEDICAID, SELFPAY ==
[2020-05-23 14:39] VITALS: BP 147/98; BMI 32.2
== END ==
PROVIDERS: PCP Family Medicine; Visit Provider Nurse Practitioner
DX: F20.89 Other schizophrenia (principal); F33.1 Major depressive disorder, recurrent, moderate; Z79.899 Other long term (current) drug therapy
CPT/HCPCS: 85007; 85027; 99214

== ENCOUNTER → 2021-12-20 14:34 | Outpatient (BNVA) | payer MEDICARE, MEDICAID, SELFPAY ==
[2020-05-23 14:39] VITALS: BP 147/98; BMI 32.2
== END ==
PROVIDERS: PCP Family Medicine; Visit Provider Internal Medicine Rheumatology
DX: M05.79 Rheumatoid arthritis with rheumatoid factor of multiple sites without organ or systems involvement (principal); Z79.899 Other long term (current) drug therapy; F20.9 Schizophrenia, unspecified; M79.10 Myalgia, unspecified site; E11.9 Type 2 diabetes mellitus without complications; Z79.84 Long term (current) use of oral hypoglycemic drugs; Z71.89 Other specified counseling
CPT/HCPCS: 80076; 82085; 82550; 82565; 85025; 85651; 86140; 99214

== ENCOUNTER → 2022-01-08 13:55 | Outpatient (BNVA) | payer MEDICARE, MEDICAID, SELFPAY ==
[2020-05-23 14:39] VITALS: BP 147/98; BMI 32.2
== END ==
PROVIDERS: PCP Family Medicine; Visit Provider Nurse Practitioner
DX: F33.1 Major depressive disorder, recurrent, moderate (principal); F20.89 Other schizophrenia; Z79.899 Other long term (current) drug therapy
CPT/HCPCS: 85007; 85027; 99214

== ENCOUNTER → 2022-02-06 13:29 | Outpatient (BNVA) | payer MEDICARE, MEDICAID, SELFPAY ==
[2020-05-23 14:39] VITALS: BP 147/98; BMI 32.2
== END ==
PROVIDERS: PCP Family Medicine; Visit Provider Nurse Practitioner
DX: F20.89 Other schizophrenia (principal)
CPT/HCPCS: 85007; 85027

== ENCOUNTER → 2022-04-15 14:53 | Outpatient (BNVA) | payer MEDICARE, MEDICAID, OTHER, SELFPAY ==
[2020-05-23 14:39] VITALS: BP 147/98; BMI 32.2
== END ==
PROVIDERS: PCP Family Medicine; Visit Provider Nurse Practitioner
DX: F33.1 Major depressive disorder, recurrent, moderate (principal); F20.89 Other schizophrenia; Z79.899 Other long term (current) drug therapy
CPT/HCPCS: 85025

== ENCOUNTER → 2022-05-27 11:52 | Outpatient (BNVA) | payer MEDICARE, MEDICAID, OTHER, SELFPAY ==
[2020-05-23 14:39] VITALS: BP 147/98; BMI 32.2
== END ==
PROVIDERS: PCP Family Medicine; Visit Provider Nurse Practitioner
DX: F20.89 Other schizophrenia (principal); Z79.899 Other long term (current) drug therapy
CPT/HCPCS: 85007; 85027

== ENCOUNTER → 2022-08-21 14:12 | Outpatient (BNVA) | payer MEDICARE, MEDICAID, OTHER, SELFPAY ==
[2020-05-23 14:39] VITALS: BP 147/98; BMI 32.2
== END ==
PROVIDERS: PCP Family Medicine; Visit Provider Nurse Practitioner
DX: Z79.899 Other long term (current) drug therapy (principal); F20.89 Other schizophrenia; F33.1 Major depressive disorder, recurrent, moderate
CPT/HCPCS: 85025

== ENCOUNTER → 2022-10-31 13:57 | Outpatient (BNVA) | payer MEDICARE, MEDICAID, OTHER, SELFPAY ==
[2020-05-23 14:39] VITALS: BP 147/98; BMI 32.2
== END ==
PROVIDERS: PCP Family Medicine; Visit Provider Nurse Practitioner
DX: Z79.899 Other long term (current) drug therapy (principal)
CPT/HCPCS: 80061; 83036

== ENCOUNTER → 2023-03-12 14:08 | Outpatient (BNVA) | payer MEDICARE, OTHER, SELFPAY ==
[2020-05-23 14:39] VITALS: BP 147/98; BMI 32.2
== END ==
PROVIDERS: PCP Family Medicine; Visit Provider Psychiatry & Neurology Psychiatry
DX: F20.89 Other schizophrenia (principal); Z79.899 Other long term (current) drug therapy
CPT/HCPCS: 85007; 85027

== ENCOUNTER → 2023-04-23 14:43 | Outpatient (BNVA) | payer MEDICARE, OTHER, SELFPAY ==
[2020-05-23 14:39] VITALS: BP 147/98; BMI 32.2
== END ==
PROVIDERS: PCP Family Medicine; Visit Provider Nurse Practitioner
DX: Z79.899 Other long term (current) drug therapy (principal); F20.89 Other schizophrenia; F33.1 Major depressive disorder, recurrent, moderate
CPT/HCPCS: 85025

== ENCOUNTER → 2023-05-26 14:43 | Outpatient (BNVA) | payer MEDICARE, OTHER, SELFPAY ==
[2020-05-23 14:39] VITALS: BP 147/98; BMI 32.2
== END ==
PROVIDERS: PCP Family Medicine; Visit Provider Nurse Practitioner
DX: F20.89 Other schizophrenia (principal); Z79.899 Other long term (current) drug therapy
CPT/HCPCS: 85007; 85027

== ENCOUNTER → 2023-06-24 14:48 | Outpatient (BNVA) | payer MEDICARE, OTHER, SELFPAY ==
[2020-05-23 14:39] VITALS: BP 147/98; BMI 32.2
== END ==
PROVIDERS: PCP Family Medicine; Visit Provider Nurse Practitioner
DX: Z79.899 Other long term (current) drug therapy (principal)
CPT/HCPCS: 85025

== ENCOUNTER → 2023-09-09 16:04 | Outpatient (BNVA) | payer MEDICARE, MEDICAID, SELFPAY ==
[2020-05-23 14:39] VITALS: BP 147/98; BMI 32.2
== END ==
PROVIDERS: PCP Family Medicine; Visit Provider Nurse Practitioner
DX: Z79.899 Other long term (current) drug therapy (principal)
CPT/HCPCS: 85025

== ENCOUNTER 2023-10-30 13:59 | Inpatient (IN) | payer MEDICARE, MEDICAID, SELFPAY ==
[2020-05-23 14:39] VITALS: BP 147/98; BMI 32.2
[2023-10-30 14:00] VITALS: BP 120/75; PULSE 100; RESP 18; TEMP 36.8; O2SAT 90; BMI 27.4
--- NOTE | 2023-10-30 14:10 | XR_ITS ---
WS: [id number] Portable AP upright chest, 10/30/2023 Clinical Data: psych Comparison: PA and lateral chest, 05/28/2021 Findings: No nodules, masses or effusions are seen. The heart is normal. The pulmonary vascularity is not increased. No pneumonia or pneumothorax is seen. Impression: Negative chest.
--- NOTE | 2023-10-30 14:10 | ECG_ITS ---
[facility] Test Date: 2023-10-30 Pat Name: Bassam Post Department: Room: Gender: Male Tax Form Preparer: : 1965 Requested By: Liv Hernández Order Number: [id number] Bobby MD: Bethel Sen M.D. Measurements Intervals [place] Rate: 99 P: 50 MS: 122 QRS: 34 QRSD: 90 T: 31 QT: 349 QTc: 449 Interpretive Statements SINUS RHYTHM LOW QRS VOLTAGE IN PRECORDIAL LEADS [QRS DEFLECTION < 1.0 mV IN CHEST LEADS] Compared to ECG 03/27/2019 18:31:49 Low QRS voltage now present Sinus tachycardia no longer present Electronically Signed On 10-31-2023 17:03:20 CDT by Bethel Sen M.D. [email or web address]
[2023-10-30 14:11] LABS: Glucose Point of Care 256 mg/dL (70-110)
--- NOTE | 2023-10-30 14:24 | W.ED.GENADLT ---
HPI - General Adult General: Chief complaint: General Medical Stated complaint: NOT TAKING MEDS Time Seen by Provider: 10/30/23 14:00 Source: patient and EMS Mode of arrival: EMS Limitations: no limitations History of Present Illness: 57-year-old male with history of diabetes along with schizophrenia patient's mother is his guardian she states that he has not been taking his meds over the last month and she states that she had felt like some of his meds were not working for schizophrenia and he has had racing thoughts she wants him to be admitted to the [facility] at this time. Associated symptoms: Deny chest pain, dyspnea, headache(s), nausea, rash or vomiting Review of Systems Const: Denies: fever(s), chills, body aches or change in appetite ENMT: Denies: throat pain or dental pain Card: Denies: chest pain Resp: Denies: dyspnea GI: Denies: abdominal pain, nausea, vomiting or diarrhea Musc: Denies: neck pain or back pain Skin/Breast: Denies: rash Neuro: Denies: headache(s) Psych: Reports: mood swings PFSH ED PFSH: Medical History senior living current use of clozapine Psychiatric care COVID-19 vaccine administered Major depressive disorder, recurrent, moderate Diabetes mellitus Immunization counseling High risk medication use Myalgia Seropositive rheumatoid arthritis of multiple sites Surgical History No significant past surgical history Family History Other CAD (coronary artery disease) Chronic kidney disease (CKD) Diabetes Hypertension Stroke Denies family history of Rheumatoid arthritis Lupus Hyperlipidemia Social History Smoking and tobacco/nicotine status: never used tobacco/nicotine Second hand smoke exposure: No Alcohol intake: current Alcohol intake frequency: few times a month Substance/Drug Use: unknown Adopted: No Caregiver/support person: Yes (Pts mother is his guardian) Lives independently: No Household members: none Housing: Manufactured/Mobile home Marital status: Highest education level completed: High School Graduate service: No 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 Pets and animals: Yes Pets & animals: dog(s) Leisure activites: other Leisure activities details: garden and mow Current gender identity: Male Physical Exam Const: COMMON NORMALS: no acute distress, patient oriented x3 and healthy appearing HENMT: COMMON NORMALS: normocephalic and atraumatic HEAD & SCALP: normocephalic and atraumatic Neck/C-Spine: COMMON NORMALS: full ROM and supple Chest: COMMONS NORMALS: normal inspection of the chest and normal palpation of entire chest wall Resp: COMMON NORMALS: normal respiratory effort, No retractions, No use of accessory muscles and clear to auscultation bilaterally AUSCULTATION: clear to auscultation bilaterally Cardio: COMMON NORMALS: regular rate, regular rhythm and No murmurs present (Cardio) RATE: regular rate RHYTHM: regular rhythm GI: COMMON NORMALS: Normal to inspection, nondistended, normoactive bowel sounds present, Soft to palpation, non-tender and no masses PALPATION: Yes Soft to palpation Extremity: COMMON NORMALS: normal to inspection and full ROM Neuro: COMMON NORMALS: patient oriented x3, moves all extremities and no focal motor deficits Psych: COMMON NORMALS: mental status grossly normal, Normal thought process present and cooperative THOUGHT PROCESS: Normal thought process present Skin: COMMON NORMALS: no rashes or lesions noted and no wounds GENERAL SKIN EXAM: no rashes or lesions noted Course Vital Signs: Vital signs: Vital Signs Temperature 98.2 F 10/30/23 14:00 Pulse Rate 83 10/30/23 14:53 Respiratory Rate 18 10/30/23 14:30 Blood Pressure 120/75 10/30/23 14:00 Pulse Oximetry 92 10/30/23 14:53 Oxygen Delivery Me thod Room Air 10/30/23 14:53 [facility] - General Adult Medical Decision Making Patient presents here with history of schizophrenia has not been taking his meds mother is guardian wanting to be admitted for medication adjustment will admit for his schizophrenia is medically cleared. Lab Data I reviewed the patient's lab results. 10/30/23 14:20 10/30/23 14:20 Laboratory Results WBC 5.78 10^3/uL (3.29-11.43) 10/30/23 14:20 RBC 4.63 10^6/uL (3.85-5.65) 10/30/23 14:20 Hgb 13.70 g/dL (11.27-16.99) 10/30/23 14:20 Hct 41.0 % (37-53) 10/30/23 14:20 MCV 88.6 fl (82-101) 10/30/23 14:20 MCH 29.6 pg (27-33) 10/30/23 14:20 MCHC 33.4 g/dL (30-55) 10/30/23 14:20 RDW 14.4 % (12.1-15.1) 10/30/23 14:20 Plt Count 255 10^3/cmm (157-399) 10/30/23 14:20 MPV 9.9 fL (7.4-10.4) 10/30/23 14:20 Neut % (Auto) 94.0 % 10/30/23 14:20 Lymph % (Auto) 3.1 % 10/30/23 14:20 [place] % (Auto) 2.6 % 10/30/23 14:20 Eos % (Auto) 0.0 % 10/30/23 14:20 Baso % (Auto) 0.0 % 10/30/23 14:20 Neut # (Auto) 5.43 10^3/uL (1.8-7.7) 10/30/23 14:20 Lymph # (Auto) 0.2 10^3/uL (0.8-4.8) L 10/30/23 14:20 [place] # (Auto) 0.2 10^3/uL (0.2-0.9) 10/30/23 14:20 Eos # (Auto) 0.0 10^3/uL (0.0-0.8) 10/30/23 14:20 Baso # (Auto) 0.0 10^3/uL (0.0-0.1) 10/30/23 14:20 Nucleated RBC % (auto) 0 % 10/30/23 14:20 Nucleated RBCs # 0.0 /100WBC 10/30/23 14:20 Sodium 138 mmol/L (136-145) 10/30/23 14:20 Potassium 3.9 mmol/L (3.5-5.1) 10/30/23 14:20 Chloride 101 mmol/L (98-107) 10/30/23 14:20 Carbon Dioxide 22 mmol/L (22-29) 10/30/23 14:20 Anion Gap 18.9 (5-19) 10/30/23 14:20 BUN 14 mg/dL (6-20) 10/30/23 14:20 Creatinine 1.0 mg/dL (0.7-1.2) 10/30/23 14:20 GFR Calculation 77.6 mL/min (90-130) L 10/30/23 14:20 Glucose 270 mg/dL (65-115) H 10/30/23 14:20 POC Glucose 256 mg/dL (70-110) H 10/30/23 14:07 Calculated Osmolality 296 mOsm/kg (285-295) H 10/30/23 14:20 Calcium 9.5 mg/dL (8.5-10.5) 10/30/23 14:20 Total Bilirubin 0.3 mg/dL (0.15-1.2) 10/30/23 14:20 AST 15 U/L (0-40) 10/30/23 14:20 ALT 34 U/L (0-41) 10/30/23 14:20 Alkaline Phosphatase 60 U/L (40-130) 10/30/23 14:20 Total Protein 6.1 g/dL (6.6-8.7) L 10/30/23 14:20 Albumin 3.8 g/dL (3.5-5.2) 10/30/23 14:20 Globulin 2.3 g/dL (1.3-4.6) 10/30/23 14:20 Salicylates < 0.3 mg/dL (3-10) L 10/30/23 14:20 Acetaminophen < 5.0 ug/mL (10-30) L 10/30/23 14:20 Ethyl Alcohol < 10 mg/dL (0-10) 10/30/23 14:20 All radiology interpretation(s) finalized by discharge Discharge Plan Discharge Patient Disposition: Admitted As Inpatient Clinical Impression: Other schizophrenia Condition: Stable Prescriptions: No Action atorvastatin 10 mg tablet 10 mg PO DAILY metoprolol tartrate 50 mg tablet 50 mg PO BID Januvia 100 mg tablet 100 mg PO DAILY tramadol 50 mg tablet 50 mg PO TID PRN (Reason: moderate to severe pain) Qty: 60 1RF clozapine 25 mg tablet 25 mg PO .COMPLEX 30 Days Qty: 90 2RF Rx Instructions: Take 1 tablet in the am and 2 tablets at bedtime. pantoprazole 40 mg tablet,delayed release (DR/EC) 40 mg PO DAILY Qty: 90 1RF bupropion HCl [Wellbutrin XL] 300 mg tablet extended release 24 hr 300 mg PO QAM Qty: 30 2RF Rx Instructions: along with 150mg [id number] daily bupropion HCl [Wellbutrin XL] 150 mg tablet extended release 24 hr 150 mg PO QAM Qty: 30 2RF Rx Instructions: along with 300mg [id number] daily topiramate [Topamax] 50 mg tablet 50 mg PO DAILY Qty: 30 2RF trihexyphenidyl 2 mg tablet 4 mg PO BEDTIME 30 Days Qty: 60 2RF alprazolam 0.5 mg tablet 0.5 mg PO BID PRN (Reason: anxiety) Qty: 60 0RF lisinopril 10 mg tablet 10 mg PO DAILY metformin 500 mg tablet extended release 24 hr 2,000 mg PO DAILY Rybelsus 7 mg tablet 7 mg PO DAILY trazodone 100 mg tablet 100 mg PO BEDTIME PRN (Reason: Sleep) Referrals: Avery March MD [Primary Care Provider] - Coding Level of Care Code ED [employer] for Alf Ayala
[2023-10-30 14:30] VITALS: PULSE 92; RESP 18; O2SAT 91
[2023-10-30 14:31] LABS: Lymphocytes # 0.2 10^3/uL (0.8-4.8); Lymphocytes % 3.1 %; Mean Corpuscular HGB Conc 33.4 g/dL (30-55); Mean Corpuscular Hemoglobin 29.6 pg (27-33); Mean Corpuscular Volume 88.6 fl (82-101); Mean Platelet Volume 9.9 fL (7.4-10.4); Monocytes # 0.2 10^3/uL (0.2-0.9); Monocytes % 2.6 %; Neutrophils # 5.43 10^3/uL (1.8-7.7); Nucleated Red Blood Cells % 0 %; Platelet Count 255 10^3/cmm (157-399); Red Blood Count 4.63 10^6/uL (3.85-5.65); Red Cell Distribution Width 14.4 % (12.1-15.1); White Blood Count 5.78 10^3/uL (3.29-11.43)
[2023-10-30 14:53] VITALS: PULSE 83; O2SAT 92
[2023-10-30 14:55] LABS: Alanine Aminotransferase 34 U/L (0-41); Albumin Level 3.8 g/dL (3.5-5.2); Alkaline Phosphatase 60 U/L (40-130); Anion Gap 18.9 (5-19); Aspartate Amino Transferase 15 U/L (0-40); Blood Urea Nitrogen 14 mg/dL (6-20); Calcium 9.5 mg/dL (8.5-10.5); Carbon Dioxide 22 mmol/L (22-29); Chloride 101 mmol/L (98-107); Creatinine Clr Calc Pharmacy 81.6052; Globulin 2.3 g/dL (1.3-4.6); Glomerular Filtration Rate 77.6 mL/min (90-130); Glucose 270 mg/dL (65-115); Osmolality Calculated 296 mOsm/kg (285-295); Potassium 3.9 mmol/L (3.5-5.1); Sodium 138 mmol/L (136-145); Total Bilirubin 0.3 mg/dL (0.15-1.2); Total Protein 6.1 g/dL (6.6-8.7)
[2023-10-30 15:08] LABS: Acetaminophen < 5.0 ug/mL (10-30); Alcohol Level < 10 mg/dL (0-10); Salicylate < 0.3 mg/dL (3-10)
--- NOTE | 2023-10-30 15:10 | PC.PHAR ---
PT VERIFIED HIS MEDICATIONS BUT COULD NOT TELL ME LAST TIME HE TOOK ANY OF THEM. MED REC COMPLETED OFF OF PT CURRENT MED LIST. COULD NOT VERIFY WITH PHARMACY DUE TO THEY CLOSED AT 1PM TODAY AND WILL NOT REOPEN UNTIL TOMORROW. 10/30/23
[2023-10-30 15:38] LABS: Amphetamines Screen Urine Negative (Negative); Barbiturates Screen Urine Negative (Negative); Benzodiazepines Screen Urine Negative (Negative); Cocaine Screen Urine Negative (Negative); Opiate Screen Urine Negative (Negative); PCP Screen Urine Negative (Negative); THC Screen Urine Negative (Negative)
--- NOTE | 2023-10-30 15:47 | PC.NURSE ---
Attempted to call report at [phone], was told by nurse that she will call back when ready for report.
[2023-10-30 17:02] VITALS: BP 94/62; PULSE 83; RESP 18; TEMP 36.6; O2SAT 97
--- NOTE | 2023-10-30 18:10 | PC.NURSE ---
PT WAS BROUGHT IN TO THE EMERGENCY DEPARTMENT VIA GUARDIAN WITH GUARDIAN REPORT OF MEDICATION NON-COMPLIANCE FOR ABOUT A MONTH. GUARDIAN REPORTS MEDICATIONS MAY NOT HAVE BEEN HELPING PRIOR TO NON-COMPLIANCE SHE HAS BEEN NOTICING A DIFFERENCE IN HIM FOR SOMETIME. PT HAS A HISTORY OF SCHIZOPHRENIA. UPON ADMIT TO THE NPU PT IS CONFUSED TO WHY HE IS HERE. PT SPEECH IS MUMBLED. PT WAS COOPERATIVE WITH ASSESSMENT. PT CURRENT NEEDS ARE MET AT THIS TIME.
--- NOTE | 2023-10-30 18:26 | PC.NURSE ---
ROOM SEARCHED BY STAFF NO CONTRABAND FOUND.
[2023-10-30 19:35] VITALS: BP 96/69; PULSE 89; RESP 17; O2SAT 95
[2023-10-30 20:10] LABS: Glucose Point of Care 216 mg/dL (70-110)
[2023-10-31 06:00] VITALS: BP 108/70; PULSE 80; RESP 17; TEMP 36.7; O2SAT 98
[2023-10-31 06:15] LABS: Glucose Point of Care 109 mg/dL (70-110)
--- NOTE | 2023-10-31 08:33 | PC.NURSE ---
During morning assessment, patient appeared confused. Patient unable to give resonable answers to some of the questions, for instance when I asked about anxiety, patient stated, it is a nice day today. When patient came to the window for a refill, patient appeared confused when this nurse asked him to remove his lid.
--- NOTE | 2023-10-31 11:14 | W.PM.NPUH&PS ---
Providers/Chief Complaint Admitting Physician: Brock Almaraz MD Primary Care Provider: Avery March MD Chief Complaint: NOT TAKING MEDS HPI NPU History of Present Illness Bassam Post Jr is a 57 year old male currently receiving outpatient mental health services at the behavioral health clinic in [facility] who presented with his mother to the emergency department. The patient's mother states the patient has been struggling with noncompliance with his medications over the last month. The patient's mother was the legal guardian. The patient was admitted at the request of the guardian for further evaluation and treatment to the neuropsychiatric unit. The patient was a poor historian but reported that he had been struggling with his ability to care for himself independently. He had admitted that he had forgotten to take many of his medications including medicines used to treat his diabetes along with his schizophrenia. Patient reports that he has been increasingly forgetful. He reports that his thoughts have been scattered and reports that he has been feeling somewhat suspicious of others. He did not endorse having thoughts of hurting himself or others. He reported difficulties with concentration. He had reported that he had not been sleeping as well. The patient stated that he has struggles with remembering things and states that he has lost interest in any previously enjoyable activities. The patient's mother had provided additional information stating that the patient has not been having problems with aggression but has been refusing any further help in the home that he resides in as he had a recreation instructor that was helping him with taking medications and keeping his house in order, but he has refused to let her enter this time. The patient's mother had stated that the patient had been having significant problems with fatigue that had been worsening with the Clazuril and had requested that a change be made. Patient reports that he has been having more thoughts about God and is trying to become more confucianist. Patient was unable to describe why he was here other than stating that I need help . Inpatient psychiatric history: The patient had reported multiple inpatient hospitalizations but was unable to recall when his last hospitalization was with previous records showing a hospitalization approximately 2 years ago at the neuropsychiatric unit. He has been diagnosed with schizophrenia. Outpatient psychiatric history: He is currently followed at the [facility] by Ayesha Yang on a monthly basis. Drug and alcohol history: None reported. No history of drug or alcohol treatment. He does report using chewing tobacco daily. Legal history: None reported Allergies: No known drug allergies Medical history: Hyperlipidemia, diabetes, Surgical history: None Current medications: Wellbutrin 450 mg daily, Clozapine 25mg in am, 50mg at night, atorvastatin, Xanax 0.5 mg twice a day as needed, lisinopril 10 mg daily, metformin 2000 mg daily, Januvia, Rybelsus, Topamax, artane. Social History: The patient lives in [place] in a trailer by himself with his pet. He reports that he is on disability. He reports that his mother is his legal guardian. He had reported having attended school in [facility]. He had stated that he had a child previously and is currently . Excerpt from Discharge Summary from 10/05/21 Discharge Diagnosis (1) Suicidal ideation: Status: Acute (2) [facility] current use of clozapine: Status: Acute (3) Major depressive disorder, recurrent, moderate: Status: Acute (4) Diabetes mellitus: Status: Acute (5) High risk medication use: Status: Acute (6) Myalgia: Status: Acute (7) Seropositive rheumatoid arthritis of multiple sites: Status: Acute (8) Other schizophrenia: Status: Acute Reason for Visit Psychiatric Symptoms Brief History: 55-year-old gentleman with a history of schizophrenia.? He has had increased stress over a personal argument with his brother lately, and has stopped taking his medications of late.? He has been experiencing worsening depression, suicidality, and some hallucinations.? His father brought him in this morning for the symptoms.? He has no specific plan for suicide. MD complaint: suicidal ideation and feels depressed Onset (ago): day(s) Duration: constant and getting worse History of same: Yes Relieving factors: none Exacerbating factors: none Context: not taking psychiatric medications Associated psychiatric symptoms: depression and suicidal ideation Associated symptoms: Reports auditory hallucinations, depression and suicidal ideation; Deny delusions or homicidal ideation Treatments prior to arrival: none If self harm: admits thoughts of self harm He was admitted to the neuropsychiatric unit for definitive treatment of those issues.? He presents today as a poor historian answering questions often with I do not know. ? He reports he is been hospitalized multiple times psychiatrically maybe 4-5 times with at least the last hospitalization being here.? He reports outpatient services at [facility].? He reports that he has not been compliant with his medication and could not give me the medications names.? He reports that he chews about half a can a day, reports that he does not all around them but denies marijuana or illicit drugs.? He is never been to rehab or had a DUI.? He reports that he thinks the reason why he is here is that he had a stroke but he could not give me clarity as to why he was here.? He reports that he was trying to do something and got confused and that is possible that one of his family members thought he needed to be here.? He denied suicide attempts or self-injurious behaviors.? He reports that he has been going to taoist and trying to get religiously better.? Logically said did not make sense except for when he answered some questions directly.? An excerpt from his last hospitalization is included below for context. Hospital Course Hospital Course He slowly acclimated to the individual, group and milieu therapies provided. He was initially started on Invega at the request of his guardian but seemed to actually deteriorate with the Invega. He was started back on the Clozaril but at a lower dose than he was on previously., 25 in the morning and 50 at bedtime. He tolerated these doses and showed steady improvement during his stay. He was able to contract for safety outside hospital prior to discharge. During the hospitalization, patient had routine laboratory studies which were within normal limits except for few outliers. Additionally there was a general medical evaluation which was also within normal limits and revealed no new acute processes. Discharge Summary: At the time of discharge, lethality was denied and psychosis was resolving. Mood and anxiety were well managed. Patient endorsed a plan to follow-up with the aftercare recommendations of the treatment team. Patient was evaluated and deemed to be absent credible lethality, and had achieved the maximum benefit from an inpatient hospitalization, so was discharged. Meds NPU Home Medications Medication Instructions Recorded Confirmed Last Taken Type atorvastatin 10 mg tablet 10 mg PO DAILY 09/07/19 10/30/23 Unknown History metoprolol tartrate 50 mg tablet 50 mg PO BID 09/07/19 10/30/23 Unknown History sitagliptin phosphate 100 mg 100 mg PO DAILY 12/20/21 10/30/23 Unknown History tablet (Januvia) tramadol 50 mg tablet 50 mg PO TID PRN moderate to 12/20/21 10/30/23 Unknown Rx severe pain #60 tabs pantoprazole 40 mg tablet,delayed 40 mg PO DAILY #90 tabs 06/03/22 10/30/23 Unknown Rx release clozapine 25 mg tablet 25 mg PO .COMPLEX 30 days #90 tabs 06/24/23 10/30/23 Unknown Rx bupropion HCl 150 mg 24 hr tablet, 150 mg PO QAM #30 tabs 09/17/23 10/30/23 Unknown Rx extended release (Wellbutrin XL) bupropion HCl 300 mg 24 hr tablet, 300 mg PO QAM #30 tabs 09/17/23 10/30/23 Unknown Rx extended release (Wellbutrin XL) topiramate 50 mg tablet (Topamax) 50 mg PO DAILY #30 tabs 09/22/23 10/30/23 Unknown Rx trihexyphenidyl 2 mg tablet 4 mg (2 x 2 mg) PO BEDTIME 30 days 09/29/23 10/30/23 Unknown Rx #60 tabs alprazolam 0.5 mg tablet 0.5 mg PO BID PRN anxiety #60 tabs 10/22/23 10/30/23 Unknown Rx lisinopril 10 mg tablet 10 mg PO DAILY 10/30/23 10/30/23 Unknown History metformin 500 mg tablet,extended 2,000 mg PO DAILY 10/30/23 10/30/23 Unknown History release 24 hr semaglutide 7 mg tablet (Rybelsus) 7 mg PO DAILY 10/30/23 10/30/23 Unknown History trazodone 100 mg tablet 100 mg PO BEDTIME PRN Sleep 10/30/23 10/30/23 Unknown History Allergies Allergy/AdvReac Type Severity Reaction Status Date / Time No Known Allergies Allergy Verified 09/09/23 15:21 PFSH NPU PFSH: 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 Psychiatric care COVID-19 vaccine administered Major depressive disorder, recurrent, moderate Diabetes mellitus Immunization counseling High risk medication use Myalgia Seropositive rheumatoid arthritis of multiple sites Surgical History No significant past surgical history Family History Other CAD (coronary artery disease) Chronic kidney disease (CKD) Diabetes Hypertension Stroke Denies family history of Rheumatoid arthritis Lupus Hyperlipidemia Social History Smoking and tobacco/nicotine status: never used tobacco/nicotine Second hand smoke exposure: No Alcohol intake: current Alcohol intake frequency: few times a month Substance/Drug Use: unknown Adopted: No Caregiver/support person: Yes (Pts mother is his guardian) Lives independently: No Household members: none Housing: Manufactured/Mobile home Marital status: Highest education level completed: High School Graduate service: No 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 Balding on top of his head.? There is no evidence of any abnormal involuntary motor movements tics or tremors appreciated. There is evidence of significant psychomotor retardation. He was cooperative with exam in mild distress.? Speech was limited and decreased rate and volume. There was increased latency in his speech. ? Mood described as not good. affect was blunted.? Thought process linear with some disorganization. Thought content: Patient denied suicidal or homicidal ideation. He had some evidence of paranoia but no overt delusions. he denied auditory or visual hallucinations but reported being distracted by thoughts that were moving fast. Attention and concentration appeared limited and memory.? He is alert and oriented times person and place but not date,month, or year. Insight and judgment is impaired, impulse control is impaired. Vitals/I&O/Wt Last Vital Signs Temp 98.1 F 10/31/23 06:00 Pulse 80 10/31/23 06:00 Resp 17 10/31/23 06:00 BP 108/70 10/31/23 06:00 Pulse Ox 98 10/31/23 06:00 O2 Del Method Room Air 10/30/23 19:35 Weight last 48 hrs Weight 77.111 kg Data NPU 10/30/23 14:20 10/30/23 14:20 A&P Assessment and plan (1) Schizophrenia, paranoid type: (2) [facility] current use of clozapine: (3) Diabetes mellitus: (4) Seropositive rheumatoid arthritis of multiple sites: (5) Myalgia: (6) High risk medication use: Plan This is a 56-year-old white male with a long history of schizophrenia and significant psychiatric treatment who presents apparently with noncompliance on clozaril and continued disorganized speech, thinking and behavior. 1. Spoke to guardian, will begin oral invega with plan for monthly IM due to noncompliance with antipsychotic orally. Stop clozaril. Will restart lisinopril, metformin, pantoprazole, rybelsus, and januvia. Hold topirimate and wellbutrin for now. 2. Continue every 15 minute checks for safety. 3. Encourage individual, group and milieu therapies. 4. Encourage sober living treatment after discharge at the highest level of care to which he is willing to commit. Involuntary Hold Information 96 Hour Hold: 96 Hour Involuntary Admission: No 96 Hour Hold Ending Date: 09/24/21 Attestations NPU Medical Necessity Statement*: Inpatient hospitalization is medically necessary and the clinically appropriate intervention at this time. We will monitor medication to make changes as indicated. Patient will be in the hospital for over two midnights. Likely length of stay 7-10 days. Coding Level of Care Code Acute Code for [facility] Fwd Diagnoses Schizophrenia, paranoid type F20.0 [facility] current use of clozapine Z79.899 Diabetes mellitus E11.9 Seropositive rheumatoid arthritis of multiple sites M05.79 Myalgia M79.10 High risk medication use Z79.899
--- NOTE | 2023-10-31 11:40 | PC.NURSE ---
Talked to patient's mom/guardian about patient's januvia and rybelsus. Patient takes both of these medications. Patient is to take the rybelsus in the morning with a half glass of water, 30 minutes before breakfast. Patient's mother said that she will bring in the Rybelsus for us to administer.
[2023-10-31] MEDS: atorvastatin 40 mg Tablet 20 MG PO (12:34)
[2023-10-31] MEDS: sitagliptin 100 mg Tablet PO (12:34)
[2023-10-31] MEDS: paliperidone ER 3 mg Tablet PO ×2 (12:34→12:53)
[2023-10-31] MEDS: pantoprazole DR 40 mg Tablet PO (12:34)
[2023-10-31 13:26] LABS: Glucose Point of Care 159 mg/dL (70-110)
[2023-10-31 14:00] VITALS: BP 106/65; PULSE 94; RESP 18; TEMP 37; O2SAT 95
[2023-10-31 17:25] LABS: Glucose Point of Care 157 mg/dL (70-110)
[2023-10-31 19:34] LABS: Glucose Point of Care 197 mg/dL (70-110)
[2023-10-31 20:09] VITALS: BP 144/79; PULSE 101; RESP 16; TEMP 36.6; O2SAT 96
[2023-10-31] MEDS: simethicone 80 mg Chew PO (22:19)
[2023-11-01 06:00] VITALS: BP 150/80; PULSE 107; RESP 17; TEMP 36.4; O2SAT 97
[2023-11-01 08:00] LABS: Glucose Point of Care 149 mg/dL (70-110)
[2023-11-01] MEDS: atorvastatin 40 mg Tablet 20 MG PO (08:12)
[2023-11-01] MEDS: paliperidone ER 3 mg Tablet PO (08:12)
[2023-11-01] MEDS: pantoprazole DR 40 mg Tablet PO (08:12)
[2023-11-01] MEDS: paliperidone ER 6 mg Tablet PO (08:12)
[2023-11-01] MEDS: sitagliptin 100 mg Tablet PO (08:12)
[2023-11-01] MEDS: ondansetron 4 MG Tablet PO ×2 (11:37→17:45)
[2023-11-01 11:53] LABS: Glucose Point of Care 119 mg/dL (70-110)
[2023-11-01 13:52] VITALS: BP 123/82; PULSE 109; RESP 16; O2SAT 98
--- NOTE | 2023-11-01 14:48 | P.NPUPN_ITS ---
Subjective NPU 2 Subjective: 58-year-old male with schizophrenia curr ently under guardianship who had been unable to manage his medications with decline in self-care and the emergence of increased paranoia. Patient had reported that he could still manage his own care at home although this appeared unrealistic and he continued to appear confused on the unit. He was at this time agreeable to consider a monthly shot of Invega as he admitted that he had a difficult time with organizing his medications. He had also intimated that he was somewhat suspicious at having to take so many medications but would not elaborate regarding what people were attempting to do to him by giving him these medications. He had reported complaints that he did not need so many medications despite the video game script writer discussing with him the multiple medical problems that he had suffered from that would lead to significant decline in his health in the absence of him taking these medications. Mental Status Exam 2 MSE Comments: This is an obese short white male in hospital scrubs with limited grooming, disheveled appearance and poor eye contact.? There is no evidence of any abnormal involuntary motor movements tics or tremors appreciated. There is evidence of significant psychomotor retardation. He was cooperative with exam in mild distress.? Speech was limited and decreased rate and volume with some rambling speech noted. There was increased latency in his speech. ? Mood described as okay. affect was blunted and mood incongruent.? Thought process linear with derailment. Thought content: Patient denied suicidal or homicidal ideation. There was evidence of a paranoid process. he denied auditory or visual hallucinations but he appeared to be responding to internal stimuli. Attention and concentration appeared limited and memory.? He is alert and oriented x person and place but not date,month, or year. Insight is poor and judgment is impaired, impulse control is impaired. 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 1. Spoke to guardian, invega 6mg daily with plan to initiate IM invega if improvement is present. Will restart lisinopril, metformin, pantoprazole, rybelsus, and januvia. Hold topirimate and wellbutrin for now. 2. Continue every 15 minute checks for safety. 3. Encourage individual, group and milieu therapies. 4. Encourage sober living treatment after discharge at the highest level of care to which he is willing to commit. Involuntary Hold Information 2 96 Hour Hold: 96 Hour Involuntary Admission: No 96 Hour Hold Ending Date: 0 09/24/21 Attestations NPU 2 Medical Necessity Statement*: Inpatient hospitalization is medically necessary and the clinically appropriate intervention at this time. We will monitor medication to make changes as indicated. The patient's likely length of stay 7-10 days. 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
[2023-11-01 17:41] LABS: Glucose Point of Care 132 mg/dL (70-110)
--- NOTE | 2023-11-01 18:35 | PC.NURSE ---
ROOM SEARCH PREFORMED BY STAFF NO CONTRABAND FOUND.
[2023-11-01 20:51] LABS: Glucose Point of Care 201 mg/dL (70-110)
[2023-11-01 21:54] VITALS: BP 117/84; PULSE 106; RESP 16; TEMP 36.3; O2SAT 98
[2023-11-02 06:00] VITALS: BP 131/90; PULSE 103; RESP 16; TEMP 36.4; O2SAT 93; BMI 27.1
[2023-11-02 07:19] LABS: Glucose Point of Care 121 mg/dL (70-110)
[2023-11-02] MEDS: sitagliptin 100 mg Tablet PO (08:17)
[2023-11-02] MEDS: paliperidone ER 6 mg Tablet PO (08:17)
[2023-11-02] MEDS: atorvastatin 40 mg Tablet 20 MG PO (08:17)
[2023-11-02] MEDS: pantoprazole DR 40 mg Tablet PO (08:17)
[2023-11-02] MEDS: docusate sodium 100 mg Capsule PO (10:58)
[2023-11-02 11:46] LABS: Glucose Point of Care 121 mg/dL (70-110)
[2023-11-02 14:00] VITALS: BP 128/87; PULSE 102; RESP 18; TEMP 36.7; O2SAT 95
--- NOTE | 2023-11-02 14:37 | W.PM.NPUPNS ---
Subjective NPU Subjective: 58-year-old male with schizophrenia currently under guardianship who had been unable to manage his medications with decline in self-care and the emergence of increased paranoia. Patient remained paranoid on the unit. He continued to report that he felt that he was being discriminated against. He had stated that he was having to deal with multiple problems and said that he would solve his problems by singing gospel songs and going back to the [employer]. He reports that he was trying to help with getting back into the world by learning everything that the [employer] told him. Mental Status Exam MSE Comments: This is an obese short white male in hospital scrubs with poor grooming, malodorous, disheveled appearance and poor eye contact.? There is no evidence of any abnormal involuntary motor movements tics or tremors appreciated. There is evidence of significant psychomotor retardation. He was cooperative with exam in mild distress.? Speech was rambling and decreased in volume. There was increased latency in his speech. ? Mood described as allright. affect was blunted and mood incongruent.? Thought process linear with continued derailment. Thought content: Patient denied suicidal or homicidal ideation. There was evidence of a paranoid process. he denied auditory or visual hallucinations but he appeared to be responding to internal stimuli. Attention and concentration appeared limited and memory.? He is alert and oriented x person and place but not date,month, or year. Insight is poor and judgment is impaired, impulse control is impaired. 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 1. Spoke to guardian, invega 6mg daily with plan to initiate IM invega sol if improvement is present. Will restart lisinopril, metformin, pantoprazole, rybelsus, and januvia. Patient may be candidate for residential treatment placement. 2. Continue every 15 minute checks for safety. 3. Encourage individual, group and milieu therapies. 4. Encourage sober living treatment after discharge at the highest level of care to which he is willing to commit. Involuntary Hold Information 96 Hour Hold: 96 Hour Involuntary Admission: No 96 Hour Hold Ending Date: 09/24/21 Attestations NPU Medical Necessity Statement*: Inpatient hospitalization is medically necessary and the clinically appropriate intervention at this time. We will monitor medication to make changes as indicated. The patient's likely length of stay 5-7 days. 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
[2023-11-02] MEDS: TRAMadol 50 mg Tablet PO (15:50)
[2023-11-02 16:34] LABS: Glucose Point of Care 116 mg/dL (70-110)
[2023-11-02 19:22] VITALS: BP 116/78; PULSE 116; RESP 16; TEMP 36.2; O2SAT 96
[2023-11-02 20:56] LABS: Glucose Point of Care 138 mg/dL (70-110)
[2023-11-03 07:53] LABS: Glucose Point of Care 177 mg/dL (70-110)
[2023-11-03] MEDS: paliperidone ER 6 mg Tablet PO (08:27)
[2023-11-03] MEDS: atorvastatin 40 mg Tablet 20 MG PO (08:27)
[2023-11-03] MEDS: sitagliptin 100 mg Tablet PO (08:28)
[2023-11-03] MEDS: pantoprazole DR 40 mg Tablet PO (08:30)
--- NOTE | 2023-11-03 11:03 | PC.NURSE ---
room search preformed no contra band found. beds stripped and cleaned.
[2023-11-03 11:23] LABS: Glucose Point of Care 131 mg/dL (70-110)
[2023-11-03 13:17] VITALS: PULSE 16; RESP 16; TEMP 36.7; O2SAT 98
--- NOTE | 2023-11-03 13:18 | PC.NURSE ---
Patient refused to allow this nurse to check his BP
[2023-11-03] MEDS: paliperidone palmitate 234 mg Syringe IM (15:09)
--- NOTE | 2023-11-03 15:40 | P.NPUPN_ITS ---
Subjective NPU 2 Subjective: 58-year-old male with schizophrenia curr ently under guardianship who had been unable to manage his medications with decline in self-care and the emergence of increased paranoia. Patient had continued to appear paranoid on the milieu. He had question the need to take medications but stated that he would if his mother had stated him for him to do so. He had reported that he wished to return back to his place of residence although he was informed that his mother was the legal guardian and had been concerned about the patient's ability to manage his care particularly with medications to treat both mental and physical illness. He was compliant and redirectable but required prompting for completion of activities of daily living. He was minimally engaged in any group therapy. He had continued to share odd thoughts about doing what ever it took to ensure that the prophets would support his beliefs. Mental Status Exam 2 MSE Comments: This is an obese short white male in hospital scrubs with poor grooming, malodorous, disheveled appearance and poor eye contact.? There is no evidence of any abnormal involuntary motor movements tics or tremors appreciated. There is evidence of significant psychomotor retardation. He was cooperative with exam in mild distress.? Speech was decreased in volume, decreased in productivity, at times rambling. There was increased latency in his speech. ? Mood described as okay. His affect was blunted and mood incongruent.? Thought process was linear with continued derailment. Thought content: Patient denied suicidal or homicidal ideation. There was evidence of a paranoid process. he denied auditory or visual hallucinations but he appeared to be responding to internal stimuli. Attention and concentration appeared limited and memory.? He is alert and oriented x person and place but not date,month, or year. Insight is poor and judgment is impaired, impulse control is impaired. Vitals/I&O/Wt Last Vital Signs Temp 98.0 F 11/03/23 13:17 Pulse 16 L 11/03/23 13:17 Resp 16 11/03/23 13:17 BP 116/78 11/02/23 19:22 Pulse Ox 98 11/03/23 13:17 O2 Del Method Room Air 11/03/23 13:17 Weight last 48 hrs Weight 76.204 kg Data NPU 10/30/23 14:20 10/30/23 14:20 A&P Assessment and plan (1) Schizophrenia, paranoid type: (2) detention current use of clozapine: (3) Diabetes mellitus: (4) Seropositive rheumatoid arthritis of multiple sites: (5) Myalgia: (6) High risk medication use: Plan This is a 56-year-old white male with a long history of schizophrenia and significant psychiatric treatment who presents apparently with noncompliance on clozaril and continued disorganized speech, thinking and behavior. 1. IM invega 234mg given today with plan for next IM invega in 5-7 days at 156mg. Continue with oral invega 6mg at this time Continue lisinopril, metformin, pantoprazole, rybelsus, and januvia. Patient may be candidate for residential treatment placement. 2. Continue every 15 minute checks for safety. 3. Encourage individual, group and milieu therapies. 4. Encourage sober living treatment after discharge at the highest level of care to which he is willing to commit. Involuntary Hold Information 2 96 Hour Hold: 96 Hour Involuntary Admission: No 96 Hour Hold Ending Date: 0 09/24/21 Attestations NPU 2 Medical Necessity Statement*: Inpatient hospitalization is medically necessary and the clinically appropriate intervention at this time. We will monitor medication to make changes as indicated. The patient's likely length of stay 5-7 days. 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
[2023-11-03 17:20] LABS: Glucose Point of Care 188 mg/dL (70-110)
[2023-11-03 19:53] LABS: Glucose Point of Care 175 mg/dL (70-110)
[2023-11-03 19:57] VITALS: BP 121/69; PULSE 114; RESP 17; TEMP 36.6; O2SAT 95
[2023-11-04 06:30] VITALS: BP 125/92; PULSE 94; RESP 15; TEMP 36.6; O2SAT 96
[2023-11-04 07:52] LABS: Glucose Point of Care 127 mg/dL (70-110)
[2023-11-04] MEDS: atorvastatin 40 mg Tablet 20 MG PO (07:54)
[2023-11-04] MEDS: paliperidone ER 6 mg Tablet PO (07:54)
[2023-11-04] MEDS: sitagliptin 100 mg Tablet PO (07:54)
[2023-11-04] MEDS: pantoprazole DR 40 mg Tablet PO (07:55)
[2023-11-04 14:00] VITALS: BP 121/88; PULSE 107; RESP 20; TEMP 36.4; O2SAT 97
--- NOTE | 2023-11-04 17:08 | P.NPUPN_ITS ---
Subjective NPU 2 Subjective: 58-year-old male with schizophrenia curr ently under guardianship who had been unable to manage his medications with decline in self-care and the emergence of increased paranoia. Patient had bizarre complaints about chest hurting and shortness of breath despite there being no clear evidence of these problems on examination physically. He had continued to report that he wanted to work on his propheses at home. Patient reported that he did not wish to consider going to a [place] facility and that he could manage his medications. The patient was informed that he had had this previous opportunity and he had apparently dismissed those caregivers that may have been able to help him to remain compliant with his medications. He had continued to require some prompting for completion of activities of daily living. He had minimized having any depressed mood at this time. He had been more communicative. He had continued to express distrust of others often staring at his pills for an extended period of time as if they may not be his actual pills. He did confirm this on interview about his distrust that others may be somehow trying to give him other medications that were not his own. Mental Status Exam 2 MSE Comments: This is an obese short white male in hospital scrubs with poor grooming, malodorous, disheveled appearance and poor eye contact.? There is no evidence of any abnormal involuntary motor movements tics or tremors appreciated. There is evidence of significant psychomotor retardation. He was cooperative with exam in mild distress.? Speech was decreased in volume, more productive in regards to his speech but continued rambling noted. There was increased latency in his speech. ? Mood described as stressed His affect was odd and subdued today. Thought process was linear with continued derailment. Thought content: Patient denied suicidal or homicidal ideation. There was evidence of a paranoid process. he denied auditory or visual hallucinations but he appeared to be responding to internal stimuli. Attention and concentration appeared limited and memory.? He is alert and oriented x person and place but not date,month, or year. Insight is poor and judgment is impaired, impulse control is impaired. 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 1. IM invega 234mg given on 11/03/23 with plan for next IM invega in 4-6 days at 156mg. Continue with oral invega 6mg at this time Continue lisinopril, metformin, pantoprazole, rybelsus, and januvia. Patient may be candidate for residential treatment placement. Holding wellbutrin and holding metformin at this time as blood sugars have been stable. 2. Continue every 15 minute checks for safety. 3. Encourage individual, group and milieu therapies. 4. Encourage sober living treatment after discharge at the highest level of care to which he is willing to commit. Involuntary Hold Information 2 96 Hour Hold: 96 Hour Involuntary Admission: No 96 Hour Hold Ending Date: 0 09/24/21 Attestations NPU 2 Medical Necessity Statement*: Inpatient hospitalization is medically necessary and the clinically appropriate intervention at this time. We will monitor medication to make changes as indicated. The patient's likely length of stay 5-7 days. 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
[2023-11-04 17:40] LABS: Glucose Point of Care 107 mg/dL (70-110)
[2023-11-04] MEDS: metformin 500 mg Tablet PO (18:14)
[2023-11-04 19:48] VITALS: BP 102/72; PULSE 91; RESP 18; TEMP 37.2; O2SAT 96
[2023-11-05 06:00] VITALS: BP 128/82; PULSE 110; RESP 17; O2SAT 97
[2023-11-05 08:04] LABS: Glucose Point of Care 137 mg/dL (70-110)
[2023-11-05] MEDS: paliperidone ER 6 mg Tablet PO (08:55)
[2023-11-05] MEDS: pantoprazole DR 40 mg Tablet PO (08:55)
[2023-11-05] MEDS: atorvastatin 40 mg Tablet 20 MG PO (08:55)
[2023-11-05] MEDS: metformin 500 mg Tablet PO ×2 (08:55→18:15)
[2023-11-05] MEDS: sitagliptin 100 mg Tablet PO (08:55)
--- NOTE | 2023-11-05 09:21 | PC.NURSE ---
During morning shift assessment, patient reports mild anxiety and mild depression, and that he is trying to cope with this. When asked what he is doing to cope, patient said that he is going to go to [employer] and clean his home when he gets home. Some confusion noted. Denied SI, HI, AVH.
[2023-11-05] MEDS: sennosides-docusate Tablet 1 TAB PO (10:13)
[2023-11-05 12:11] LABS: Glucose Point of Care 92 mg/dL (70-110)
[2023-11-05 14:00] VITALS: BP 107/70; PULSE 119; RESP 16; TEMP 36.6; O2SAT 98
--- NOTE | 2023-11-05 17:08 | P.NPUPN_ITS ---
Subjective NPU 2 Subjective: 58-year-old male with schizophrenia curr ently under guardianship who had been unable to manage his medications with decline in self-care and the emergence of increased paranoia. No side effects were appreciated today. He had continued to express some paranoia regarding his pills. He was more redirectable on the unit. He had reported no side effects from his medication. He had stated that he still wished to consider living by himself at home despite treatment team again reiterating that he had been given this option and that it had not been successful for him as he had been noncompliant with those medication regimen and this had led to increased medical issues. He had appeared more interested in his self-care. he had reported that he would do what he needed to as long as his mother had supported him. Mental Status Exam 2 MSE Comments: This is an obese short white male in hospital scrubs with limited grooming and a disheveled appearance and poor eye contact.? There is no evidence of any abnormal involuntary motor movements tics or tremors appreciated. There is evidence of mild psychomotor slowing. He was cooperative with exam in mild distress.? Speech was decreased in volume, more productive in regards to his speech but continued to ramble at times. Increased speech latency was less prominent. ? Mood described as okay His affect was odd and subdued today. Thought process was linear with less derailment noted. Thought content: Patient denied suicidal or homicidal ideation. There was evidence of a paranoid process. He denied auditory or visual hallucinations but he appeared to be responding to internal stimuli. Attention and concentration appeared limited and memory.? He is alert and oriented x person and place but not date,month, or year. Insight is poor and judgment is impaired. Impulse control is impaired. 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 1. IM invega 234mg given on 11/03/23 with plan for next IM invega in 4-6 days at 156mg. Continue with oral invega 6mg at this time with plan to discontinue. Continue lisinopril, metformin, pantoprazole, rybelsus, and januvia. Patient may be candidate for residential treatment placement. Holding wellbutrin and holding metformin at this time as blood sugars have been stable. Restarted Metformin 500mg bid. 2. Continue every 15 minute checks for safety. 3. Encourage individual, group and milieu therapies. 4. Encourage sober living treatment after discharge at the highest level of care to which he is willing to commit. Involuntary Hold Information 2 96 Hour Hold: 96 Hour Involuntary Admission: No 96 Hour Hold Ending Date: 0 09/24/21 Attestations NPU 2 Medical Necessity Statement*: Inpatient hospitalization is medically necessary and the clinically appropriate intervention at this time. We will monitor medication to make changes as indicated. The patient's likely length of stay 5-7 days. Coding Level of Care Code Acute Code for g Fwd Diagnoses Schizophrenia, paranoid type F20.0 FDC current use of clozapine Z79.899 Diabetes mellitus E11.9 Seropositive rheumatoid arthritis of multiple sites M05.79 Myalgia M79.10 High risk medication use Z79.899
[2023-11-05 17:29] LABS: Glucose Point of Care 101 mg/dL (70-110)
[2023-11-05 20:00] LABS: Glucose Point of Care 127 mg/dL (70-110)
[2023-11-05 20:42] VITALS: PULSE 114; RESP 19; O2SAT 96
--- NOTE | 2023-11-05 20:43 | PC.NURSE ---
Mr. Post was anxious when asked for vitals this evening. Pt. stated he was tired of getting shots and meds that were not helping and refused vitals. Pt. also stated that he was having trouble breathing. This FOREST PRODUCTS TEACHER asked Pt if it was ok to at least check o2 and pulse. Pt. allowed o2 and pulse check. Vitals charted. Nurse aware.
[2023-11-06] MEDS: trazodone 50 mg Tablet PO (00:10)
[2023-11-06 06:00] VITALS: RESP 15
[2023-11-06 06:29] VITALS: BP 101/74; PULSE 121; RESP 17; O2SAT 96
[2023-11-06 07:38] LABS: Glucose Point of Care 131 mg/dL (70-110)
[2023-11-06] MEDS: paliperidone ER 6 mg Tablet PO (08:30)
[2023-11-06] MEDS: metformin 500 mg Tablet PO ×2 (08:30→18:05)
[2023-11-06] MEDS: atorvastatin 40 mg Tablet 20 MG PO (08:31)
[2023-11-06] MEDS: sitagliptin 100 mg Tablet PO (08:31)
[2023-11-06] MEDS: pantoprazole DR 40 mg Tablet PO (08:31)
--- NOTE | 2023-11-06 13:55 | P.NPUPN_ITS ---
Subjective NPU 2 Subjective: 58-year-old male with schizophrenia curr ently under guardianship who had been unable to manage his medications with decline in self-care and the emergence of increased paranoia. Patient had reported some anergia. He continued to struggle with lack of energy and motivation. He reports that he wishes to live alone at home although he had reported that he would go to a intermediate if his mother insisted. No side effects were appreciated today. Patient continued to ruminate and spend time staring at his medication given to him. Patient reports you never know what you are taking Mental Status Exam 2 MSE Comments: This is an obese short white male in hospital acrubs with limited grooming and a disheveled appearance and poor eye contact.? There is no evidence of any abnormal involuntary motor movements tics or tremors appreciated. There is evidence of mild psychomotor slowing. He was cooperative with exam in mild distress.? Speech was decreased in volume, more productive in regards to his speech but continued to ramble at times. Increased speech latency was appreciated. ? Mood described as allright His affect was blunted. Thought process was linear with less derailment noted. Thought content: Patient denied suicidal or homicidal ideation. There was evidence of a paranoid process. He denied auditory or visual hallucinations and did not appear to be responding to internal stimuli. Attention and concentration appeared limited and memory.? He is alert and oriented x person and place but year and not date. Insight is poor and judgment is impaired. Impulse control is impaired. 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 1. IM invega 234mg given on 11/03/23 with plan for next IM invega in 4-6 days at 156mg. Continue with oral invega 6mg at this time with plan to taper and discontinue oral invega. Continue lisinopril, metformin, pantoprazole, rybelsus, and januvia. Patient may be candidate for residential treatment placement. Restarted Metformin 500mg bid. 2. Continue every 15 minute checks for safety. 3. Encourage individual, group and milieu therapies. 4. Encourage sober living treatment after discharge at the highest level of care to which he is willing to commit. Involuntary Hold Information 2 96 Hour Hold: 96 Hour Involuntary Admission: No 96 Hour Hold Ending Date: 0 09/24/21 Attestations NPU 2 Medical Necessity Statement*: Inpatient hospitalization is medically necessary and the clinically appropriate intervention at this time. We will monitor medication to make changes as indicated. The patient's likely length of stay 5-7 days. 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
[2023-11-06 14:00] VITALS: BP 120/76; PULSE 95; RESP 20; TEMP 36.6; O2SAT 97
[2023-11-06 17:47] LABS: Glucose Point of Care 111 mg/dL (70-110)
--- NOTE | 2023-11-06 17:49 | PC.NURSE ---
STAFF PERFORMED RANDOM ROOM CHECKS AT AROUND 1745. NO CONTRABAND WAS FOUNND IN PT ROOM. PT WAS COOPERATIVE WITH ROOM CHECK.
[2023-11-06] MEDS: TRAMadol 50 mg Tablet PO (18:36)
[2023-11-06 19:51] LABS: Glucose Point of Care 140 mg/dL (70-110)
[2023-11-06 20:07] VITALS: BP 137/84; PULSE 110; RESP 18; TEMP 36.3; O2SAT 95
[2023-11-07 06:00] VITALS: BP 128/76; PULSE 102; RESP 18; TEMP 36.4; O2SAT 95
[2023-11-07] MEDS: sitagliptin 100 mg Tablet PO (08:05)
[2023-11-07] MEDS: atorvastatin 40 mg Tablet 20 MG PO (08:06)
[2023-11-07] MEDS: metformin 500 mg Tablet PO (08:06)
[2023-11-07] MEDS: pantoprazole DR 40 mg Tablet PO (08:06)
[2023-11-07] MEDS: paliperidone ER 6 mg Tablet PO (08:06)
--- NOTE | 2023-11-07 13:12 | DCPLANNER ---
IMM was printed and explained and given to pt and copy placed in file.
[2023-11-07 14:00] VITALS: BP 134/91; PULSE 113; RESP 20; TEMP 36.6; O2SAT 96
--- NOTE | 2023-11-07 15:37 | W.PM.NPUDCS ---
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 The patient's mother states the patient has been struggling with noncompliance with his medications over the last month. The patient's mother was the legal guardian. The patient was admitted at the request of the guardian for further evaluation and treatment to the neuropsychiatric unit. The patient was a poor historian but reported that he had been struggling with his ability to care for himself independently. He had admitted that he had forgotten to take many of his medications including medicines used to treat his diabetes along with his schizophrenia. Patient reports that he has been increasingly forgetful. He reports that his thoughts have been scattered and reports that he has been feeling somewhat suspicious of others. He did not endorse having thoughts of hurting himself or others. He reported difficulties with concentration. He had reported that he had not been sleeping as well. The patient stated that he has struggles with remembering things and states that he has lost interest in any previously enjoyable activities. The patient's mother had provided additional information stating that the patient has not been having problems with aggression but has been refusing any further help in the home that he resides in as he had a rn spine that was helping him with taking medications and keeping his house in order, but he has refused to let her enter this time. The patient's mother had stated that the patient had been having significant problems with fatigue that had been worsening with the Clazuril and had requested that a change be made. Patient reports that he has been having more thoughts about God and is trying to become more baptist. Patient was unable to describe why he was here other than stating that I need help . Inpatient psychiatric history: The patient had reported multiple inpatient hospitalizations but was unable to recall when his last hospitalization was with previous records showing a hospitalization approximately 2 years ago at the neuropsychiatric unit. He has been diagnosed with schizophrenia. Outpatient psychiatric history: He is currently followed at the [facility] by Ayesha Yang on a monthly basis. Drug and alcohol history: None reported. No history of drug or alcohol treatment. He does report using chewing tobacco daily. Legal history: None reported Allergies: No known drug allergies Medical history: Hyperlipidemia, diabetes, Surgical history: None Current medications: Wellbutrin 450 mg daily, Clozapine 25mg in am, 50mg at night, atorvastatin, Xanax 0.5 mg twice a day as needed, lisinopril 10 mg daily, metformin 2000 mg daily, Januvia, Rybelsus, Topamax, artane. Social History: The patient lives in [facility] in a trailer by himself with his pet. He reports that he is on disability. He reports that his mother is his legal guardian. He had reported having attended school in [facility]. He had stated that he had a child previously and is currently . Excerpt from Discharge Summary from 10/05/21 Discharge Diagnosis (1) Suicidal ideation: Status: Acute (2) group home current use of clozapine: Status: Acute (3) Major depressive disorder, recurrent, moderate: Status: Acute (4) Diabetes mellitus: Status: Acute (5) High risk medication use: Status: Acute (6) Myalgia: Status: Acute (7) Seropositive rheumatoid arthritis of multiple sites: Status: Acute (8) Other schizophrenia: Status: Acute Reason for Visit Psychiatric Symptoms Brief History: 55-year-old gentleman with a history of schizophrenia. He has had increased stress over a personal argument with his brother lately, and has stopped taking his medications of late. He has been experiencing worsening depression, suicidality, and some hallucinations. His father brought him in this morning for the symptoms. He has no specific plan for suicide. MD complaint: suicidal ideation and feels depressed Onset (ago): day(s) Duration: constant and getting worse History of same: Yes Relieving factors: none Exacerbating factors: none Context: not taking psychiatric medications Associated psychiatric symptoms: depression and suicidal ideation Associated symptoms: Reports auditory hallucinations, depression and suicidal ideation; Deny delusions or homicidal ideation Treatments prior to arrival: none If self harm: admits thoughts of self harm He was admitted to the neuropsychiatric unit for definitive treatment of those issues. He presents today as a poor historian answering questions often with I do not know. He reports he is been hospitalized multiple times psychiatrically maybe 4-5 times with at least the last hospitalization being here. He reports outpatient services at [facility]. He reports that he has not been compliant with his medication and could not give me the medications names. He reports that he chews about half a can a day, reports that he does not all around them but denies marijuana or illicit drugs. He is never been to rehab or had a DUI. He reports that he thinks the reason why he is here is that he had a stroke but he could not give me clarity as to why he was here. He reports that he was trying to do something and got confused and that is possible that one of his family members thought he needed to be here. He denied suicide attempts or self-injurious behaviors. He reports that he has been going to amish and trying to get religiously better. Logically said did not make sense except for when he answered some questions directly. An excerpt from his last hospitalization is included below for context. Hospital Course Hospital Course He slowly acclimated to the individual, group and milieu therapies provided. He had previous success on Invega but has been adherent. He was restarted on Invega with permission from his guardian and he received the first loading dose of 234 mg of Invega Sustenna IM to the deltoid. He was continued on oral dosing and his other medications for his physical medical complaints were restarted as well. He tolerated these doses and showed steady improvement during his stay. He was able to contract for safety outside hospital prior to discharge. During the hospitalization, patient had routine laboratory studies which were within normal limits except for few outliers. Additionally there was a general medical evaluation which was also within normal limits and revealed no new acute processes. Discharge Summary: At the time of discharge, lethality was denied and psychosis was resolving. Mood and anxiety were well managed. Patient endorsed a plan to follow-up with the aftercare recommendations of the treatment team. Patient was evaluated and deemed to be absent credible lethality, and had achieved the maximum benefit from an inpatient hospitalization, so was discharged. Involuntary Hold Information 96 Hour Hold: 96 Hour Involuntary Admission: No 96 Hour Hold Ending Date: 09/24/21 Mental Status Exam MSE Comments: This is an obese short white male in hospital acrubs with limited grooming and a disheveled appearance and poor eye contact.? There is no evidence of any abnormal involuntary motor movements tics or tremors appreciated. There is evidence of mild psychomotor slowing. He was cooperative with exam in mild distress.? Speech was decreased in volume, more productive in regards to his speech but continued to ramble at times. ? Mood described as allright His affect was blunted. Thought process was linear with less derailment noted. Thought content: Patient denied suicidal or homicidal ideation. There was evidence of a paranoid process. He denied auditory or visual hallucinations and did not appear to be responding to internal stimuli. Attention and concentration appeared limited and memory.? He is alert and oriented x person and place but year and not date. Insight is poor and judgment is impaired. Impulse control is impaired. Discharge Data Studies Completed and Pending: Completed Studies During Hospitalization Category Date Time Status XR chest 1V thiago ble [id number] Stat Exams 10/30/23 14:10 Completed Laboratory Results WBC 5.78 10^3/uL (3.2 9-11.43) 10/30/23 14:20 RBC 4.63 10^6/uL (3.8 5-5.65) 10/30/23 14:20 Hgb 13.70 g/dL (11.27 -16.99) 10/30/23 14:20 Hct 41.0 % (37-53) 10/30/23 14:20 MCV 88.6 fl (82-101) 10/30/23 14:20 MCH 29.6 pg (27-33) 10/30/23 14:20 MCHC 33.4 g/dL (30-55) 10/30/23 14:20 RDW 14.4 % (12.1-15.1 ) 10/30/23 14:20 Plt Count 255 10^3/cmm (157 -399) 10/30/23 14:20 MPV 9.9 fL (7.4-10.4) 10/30/23 14:20 Neut % (Auto) 94.0 % 10/30/23 14:20 Lymph % (Auto) 3.1 % 10/30/23 14:20 [place] % (Auto) 2.6 % 10/30/23 14:20 Eos % (Auto) 0.0 % 10/30/23 14:20 Baso % (Auto) 0.0 % 10/30/23 14:20 Neut # (Auto) 5.43 10^3/uL (1.8 -7.7) 10/30/23 14:20 Lymph # (Auto) 0.2 10^3/uL (0.8- 4.8) L 10/30/23 14:20 [place] # (Auto) 0.2 10^3/uL (0.2- 0.9) 10/30/23 14:20 Eos # (Auto) 0.0 10^3/uL (0.0- 0.8) 10/30/23 14:20 Baso # (Auto) 0.0 10^3/uL (0.0- 0.1) 10/30/23 14:20 Nucleated RBC % (a uto) 0 % 10/30/23 14:20 Nucleated RBCs # 0.0 /100WBC 10/30/23 14:20 Sodium 138 mmol/L (136-1 45) 10/30/23 14:20 Potassium 3.9 mmol/L (3.5-5 .1) 10/30/23 14:20 Chloride 101 mmol/L (98-10 7) 10/30/23 14:20 Carbon Dioxide 22 mmol/L (22-29) 10/30/23 14:20 Anion Gap 18.9 (5-19) 10/30/23 14:20 BUN 14 mg/dL (6-20) 10/30/23 14:20 Creatinine 1.0 mg/dL (0.7-1. 2) 10/30/23 14:20 GFR Calculation 77.6 mL/min (90-1 30) L 10/30/23 14:20 Glucose 270 mg/dL (65-115 ) H 10/30/23 14:20 POC Glucose 140 mg/dL (70-110 ) H 11/06/23 19:45 Calculated Osmolal ity 296 mOsm/kg (285- 295) H 10/30/23 14:20 Calcium 9.5 mg/dL (8.5-10 .5) 10/30/23 14:20 Total Bilirubin 0.3 mg/dL (0.15-1 .2) 10/30/23 14:20 AST 15 U/L (0-40) 10/30/23 14:20 ALT 34 U/L (0-41) 10/30/23 14:20 Alkaline Phosphata se 60 U/L (40-130) 10/30/23 14:20 Total Protein 6.1 g/dL (6.6-8.7 ) L 10/30/23 14:20 Albumin 3.8 g/dL (3.5-5.2 ) 10/30/23 14:20 Globulin 2.3 g/dL (1.3-4.6 ) 10/30/23 14:20 Salicylates < 0.3 mg/dL (3-10 ) L 10/30/23 14:20 Urine Opiates Scre en Negative ng/mL (N egative) 10/30/23 15:03 Acetaminophen < 5.0 ug/mL (10-3 0) L 10/30/23 14:20 Ur Barbiturates Sc reen Negative ng/mL (N egative) 10/30/23 15:03 Ur Phencyclidine S crn Negative ng/mL (N egative) 10/30/23 15:03 Ur Amphetamines Sc reen Negative ng/mL (N egative) 10/30/23 15:03 U Benzodiazepines Scrn Negative ng/mL (N egative) 10/30/23 15:03 Urine Cocaine Scre en Negative ng/mL (N egative) 10/30/23 15:03 U Marijuana (THC) Screen Negative ng/mL (N egative) 10/30/23 15:03 Ethyl Alcohol < 10 mg/dL (0-10) 10/30/23 14:20 Vitals: Last Vital Signs Temp 97.6 F 11/07/23 06:00 Pulse 102 H 11/07/23 06:00 Resp 18 11/07/23 06:00 BP 128/76 11/07/23 06:00 Pulse Ox 95 11/07/23 06:00 O2 Del Method Room Air 11/05/23 14:00 Discharge Plan Discharge Patient Disposition: Home Condition: Stable Prescriptions: New atorvastatin 40 mg Tablet 20 mg PO DAILY 30 Days Qty: 15 1RF metformin 500 mg Tablet 500 mg PO BIDWM 30 Days Qty: 60 1RF paliperidone 6 mg Tablet Extended Release 24hr 6 mg PO DAILY 30 Days Qty: 30 0RF Rx Instructions: Take for 10 days and discontinue after second loading dose 11/10/2023 Invega Sustenna Invega Sustenna 156 mg/mL syringe 156 mg IM Q30D 30 Days Qty: 1 2RF Rx Instructions: Next injection 11/10/2023 deltoid loading dose then 12/08/2023 IM then as directed. Continued Januvia 100 mg tablet 100 mg PO DAILY tramadol 50 mg tablet 50 mg PO TID PRN (Reason: moderate to severe pain) Qty: 60 1RF pantoprazole 40 mg tablet,delayed release (DR/EC) 40 mg PO DAILY Qty: 90 1RF lisinopril 10 mg tablet 10 mg PO DAILY Rybelsus 7 mg tablet 7 mg PO DAILY Changed trazodone 100 mg tablet 100 mg PO BEDTIME PRN (Reason: Sleep) 30 Days Qty: 30 1RF Discontinued atorvastatin 10 mg tablet 10 mg PO DAILY metoprolol tartrate 50 mg tablet 50 mg PO BID clozapine 25 mg tablet 25 mg PO .COMPLEX 30 Days Qty: 90 2RF Rx Instructions: Take 1 tablet in the am and 2 tablets at bedtime. bupropion HCl [Wellbutrin XL] 300 mg tablet extended release 24 hr 300 mg PO QAM Qty: 30 2RF Rx Instructions: along with 150mg [id number] daily bupropion HCl [Wellbutrin XL] 150 mg tablet extended release 24 hr 150 mg PO QAM Qty: 30 2RF Rx Instructions: along with 300mg [id number] daily topiramate [Topamax] 50 mg tablet 50 mg PO DAILY Qty: 30 2RF trihexyphenidyl 2 mg tablet 4 mg PO BEDTIME 30 Days Qty: 60 2RF alprazolam 0.5 mg tablet 0.5 mg PO BID PRN (Reason: anxiety) Qty: 60 0RF metformin 500 mg tablet extended release 24 hr 2,000 mg PO DAILY Discharge Orders: Discharge Order (Routine); Ordered 11/07/23 Ordered By: Alek Nugent Referrals: [facility] [Other] - 11/19/23 Ayesha Rice PMHNP [Staff Physician] - 11/10/23 1:45 pm (Follow up.) Avery March MD [Primary Care Provider] - Discharge Diet: Regular Discharge Activity: Resume usual activity Patient Instructions: Paliperidone (By mouth) (Invega), Depression (DC), Schizophrenia (DC), Opioid Safety Discharge Attestations NPU Time Spent in Discharge Care*: less than 30 min Specific Discharge Activities: Specific discharge activities: educating patient, discussing with test case developer/social workers/dc planners, documenting/other paperwork and evaluating patient/reviewing data Coding Level of Care Code Acute Code for [facility] Fwd Diagnoses Schizophrenia, paranoid type F20.0 intermediate card tender current use of clozapine Z79.899 Diabetes mellitus E11.9 Seropositive rheumatoid arthritis of multiple sites M05.79 Myalgia M79.10 High risk medication use Z79.899
[2023-11-07 15:39] VITALS: BP 128/76; PULSE 102; RESP 18; TEMP 36.4; O2SAT 95
== END 2023-11-07 16:20 | disposition home or self-care (01) | DRG 885 ==
LOC: ER 15:12 → NP 15:13
PROVIDERS: Admitting Provider Psychiatry & Neurology Psychiatry; Emergency Provider Emergency Medicine; PCP Family Medicine; Visit Provider Psychiatry & Neurology Psychiatry
DX: F20.0 Paranoid schizophrenia (principal); Z79.899 Other long term (current) drug therapy; E11.9 Type 2 diabetes mellitus without complications; Z79.84 Long term (current) use of oral hypoglycemic drugs; M05.9 Rheumatoid arthritis with rheumatoid factor, unspecified; M79.10 Myalgia, unspecified site; Z91.148 Patient's other noncompliance with medication regimen for other reason
CPT/HCPCS: 36416; 71045; 80053; 80306; 80307; 82962; 85025; 93005; 96372; 97150; 97165; 99285; Q0162

== ENCOUNTER → 2024-01-07 14:25 | Outpatient (BNVA) | payer MEDICARE, OTHER, SELFPAY ==
[2020-05-23 14:39] VITALS: BP 147/98; BMI 32.2
== END ==
PROVIDERS: PCP Family Medicine; Visit Provider Nurse Practitioner
DX: Z79.899 Other long term (current) drug therapy (principal)
CPT/HCPCS: 80061

== ENCOUNTER 2024-08-14 20:32 | Emergency (ER) | payer MEDICARE, MEDICAID, SELFPAY ==
[2020-05-23 14:39] VITALS: BP 147/98; BMI 32.2
[2024-08-14 20:43] VITALS: BP 144/83; PULSE 130; RESP 18; TEMP 38.8; O2SAT 95
--- NOTE | 2024-08-14 20:52 | ECG_ITS ---
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 Measurements Intervals [place] Rate: 129 P: 53 IN: 106 QRS: 36 QRSD: 79 T: 48 QT: 268 QTc: 393 Interpretive Statements SINUS TACHYCARDIA WITH SHORT IN INTERVAL Compared to ECG 10/30/2023 14:07:55 Short IN interval now present Sinus rhythm no longer present Electronically Signed On 08-14-2024 22:48:34 NUCLEAR FUEL PROCESSING TECHNICIAN by Bethel Sen M.D. [email or web address]
--- NOTE | 2024-08-14 21:14 | XRR_ITS ---
PROCEDURE INFORMATION: Exam: XR Chest Exam date and time: 08/14/2024 9:29 PM Age: 58 years old Clinical indication: Patient HX: Fever; Dental abscess TECHNIQUE: Imaging protocol: Radiologic exam of the chest. Views: 1 view. COMPARISON: CR XR chest 1V portable [id number] 10/30/2023 2:39 PM FINDINGS: Lungs: No consolidation. Left upper lobe calcified benign granuloma again seen. Pleural spaces: Unremarkable. No pleural effusion. No pneumothorax. Heart/Mediastinum: Unremarkable. No cardiomegaly. Bones/joints: Unremarkable. XR/XR chest 1V portable [id number] IMPRESSION: No acute findings.
--- NOTE | 2024-08-14 21:39 | CTR_ITS ---
PROCEDURE INFORMATION: Exam: CT Neck With Contrast Exam date and time: 08/14/2024 9:55 PM Age: 58 years old Clinical indication: Dysphagia / difficulty swallowing and mass, lump, or swelling in neck; Patient HX: C/O dysphagia with left submandibular swelling. States a dental infection that has not gone away in months. ; Additional info: Edema/trouble swallowing/febrile TECHNIQUE: Imaging protocol: Computed tomography of the neck with contrast. Radiation optimization: All CT scans at this facility use at least one of these dose optimization techniques: automated exposure control; mA and/or kV adjustment per patient size (includes targeted exams where dose is matched to clinical indication); or iterative reconstruction. Contrast material: OMNI 350; Contrast volume: 100 ml; Contrast route: INTRAVENOUS (IV); COMPARISON: CR (CHEST, ) 08/14/2024 9:29 PM RADIATION DOSE METRICS: Total DLP (mGy-cm): 278.71 FINDINGS: Salivary glands: Normal. Glands are normal in size. Pharynx: See Bones/joints finding. Prevertebral and retropharyngeal spaces: Unremarkable. Larynx: Unremarkable. Epiglottis is normal. Thyroid: Left thyroid 10 mm cyst, further evaluation with ultrasound advised. Trachea: Visualized trachea is unremarkable. Lungs: Unremarkable as visualized. Lymph nodes: Unremarkable. No lymphadenopathy. Bones/joints: 4.3 cm somewhat complex fluid collection centered about the left mandibular angle along both the medial and lateral aspect of the mandible consistent with an abscess. Additionally the fluid collection extends to the submandibular region, please correlate for Luther's angina given extension. Finding may be odontogenic in nature given associated underlying odontogenic disease. Associated narrowing of the airway is seen with effacement of the left vallecula and piriform sinus secondary to mass effect from the edema about the fluid collection. Soft tissues: Unremarkable. No significant soft tissue swelling. CT/CT neck w con* [id number] IMPRESSION: 1. 4.3 cm somewhat complex fluid collection centered about the left mandibular angle along both the medial and lateral aspect of the mandible consistent with an abscess. Additionally the fluid collection extends to the submandibular region, please correlate for Luther's angina given extension. Finding may be odontogenic in nature given associated underlying odontogenic disease. Associated narrowing of the airway is seen with effacement of the left vallecula and piriform sinus secondary to mass effect from the edema about the fluid collection. 2. Left thyroid 10 mm cyst, further evaluation with ultrasound advised. COMMENTS: Consistent with the [employer]'s Incidental Findings Committee white paper (J Am Kaylie Radiol 2015): In patients aged 35 years and older with an incidental thyroid nodule equal to or greater than 1.[address], MRI or extrathyroidal US, further evaluation with dedicated thyroid US is recommended for patients with normal life expectancy and without comorbidities. For smaller nodules without suspicious features, no further evaluation or follow up is recommended.
--- NOTE | 2024-08-14 21:41 | ED_ITS ---
Documented by User: [email or web address] Gómez 08/15/24 00:01 HPI - Dental/Oral 2 General: Chief complaint: Dental/Oral Stated complaint: dental absess cant swollow Time Seen by Provider: 08/14/24 21:30 Source: patient Mode of arrival: ambulatory Limitations: no limitations History of Present Illness: Patient 58-year-old male presents to ED today with complaint of swelling to the left side of his neck. He believes he has a dental abscess. He arrives to the emergency department tachycardic with a heart rate of 130 and febrile at 101.8. Patient states he recently received his Invega vaccine and thinks his fever might be related to this. He has also had a cough. States he has a history of COPD. Patient states he is having difficulty swallowing. He is controlling his secretions. He is a diabetic. Onset (ago): day(s) Duration: constant Severity: severe Relieving factors: nothing Exacerbating factors: nothing Context: poor dental care Associated symptoms: Reports fever(s) Treatment prior to arrival: none Related Data Home Medications Medication Instructions Recorded Confirmed sitagliptin phosphate 100 mg 100 mg PO DAILY 12/20/21 08/12/24 tablet (Januvia) lisinopril 10 mg tablet 10 mg PO DAILY 10/30/23 08/12/24 semaglutide 7 mg tablet (Rybelsus) 7 mg PO DAILY 10/30/23 08/12/24 alprazolam 0.5 mg tablet 0.5 mg PO BID PRN 12/08/23 08/12/24 folic acid 0.8 mg capsule 0.8 mg PO DAILY 04/06/24 08/12/24 methotrexate sodium 2.5 mg tablet 10 mg PO .weekly 04/06/24 08/12/24 Previous Rx's Medication Instructions Recorded tramadol 50 mg tablet 50 mg PO TID PRN moderate to 12/20/21 severe pain #60 tabs pantoprazole 40 mg tablet,delayed 40 mg PO DAILY #90 tabs 06/03/22 release atorvastatin 40 mg tablet 20 mg (1/2 x 40 mg) PO DAILY 30 11/07/23 days #15 tabs metformin 500 mg tablet 500 mg PO BIDWM 30 days #60 tabs 11/07/23 trazodone 100 mg tablet 200 mg (2 x 100 mg) PO .HS #60 tabs 07/02/24 paliperidone palmitate 234 mg/1.5 234 mg (1.5 mL) IM Q30D #1.5 mL 07/29/24 mL intramuscular syringe (Invega Sustenna) sertraline 50 mg tablet (Zoloft) 50 mg PO DAILY #30 tabs 08/11/24 paliperidone 6 mg tablet,extended 6 mg PO QAM PRN psychosis #15 tabs 08/12/24 release 24 hr (Invega) Allergies Allergy/AdvReac Type Severity Reaction Status Date / Time No Known Allergies Allergy Verified 08/14/24 20:50 Review of Systems 2 Const: Reports: fever(s) and chills; Denies: body aches ENMT: Reports: dental pain; Denies: hoarseness or oral sores Card: Denies: chest pain Resp: Reports: non-productive cough and chest congestion; Denies: dyspnea or wheezing GI: Denies: nausea or vomiting Musc: Reports: neck pain Skin/Breast: Denies: rash Neuro: Denies: headache(s), numbness in extremities, weakness in extremities or sensory changes PFSH ED 2 PFSH: Medical History 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 antipsychotic drug therapy Other schizophrenia care home current use of clozapine Psychiatric care COVID-19 vaccine administered Major depressive disorder, recurrent, moderate Diabetes mellitus Immunization counseling High risk medication use Myalgia Seropositive rheumatoid arthritis of multiple sites Surgical History No significant past surgical history Family History Other CAD (coronary artery disease) Chronic kidney disease (CKD) Diabetes Hypertension Stroke Denies family history of Rheumatoid arthritis Lupus Hyperlipidemia Social History Smoking and tobacco/nicotine status: never used tobacco/nicotine Second hand smoke exposure: No Alcohol intake: current Alcohol intake frequency: few times a month Substance/Drug Use: unknown Adopted: No Caregiver/support person: Yes (Pts mother is his guardian) Lives independently: No Household members: none Housing: Manufactured/Mobile home Marital status: Highest education level completed: High School Graduate service: No 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 edema/TTP; extends into submandibular space NOSE: Normal external nose present MOUTH: Normal oral and palatal mucosa present and lip normal TEETH & GINGIVA: Yes caries and Yes poor dentition THROAT: other (trismus; no obvious sublingual elevation noted) Eye: GENERAL EYE: appearance normal, both eyes and all related structures Neck/C-Spine: COMMON NORMALS: no meningeal signs GENERAL: Yes anterior neck swelling and Yes submandibular swelling Resp: COMMON NORMALS: normal respiratory effort and clear to auscultation bilaterally AUSCULTATION: clear to auscultation bilaterally Cardio: COMMON NORMALS: regular rhythm RATE: tachycardic RHYTHM: regular rhythm Extremity: GENERAL: Yes normal exam except as noted Neuro: SANDOR COMA SCALE: document GCS findings [place] coma scale eye opening: Spontaneous [place] coma scale verbal response: Orientated Sandor coma scale motor response: Obey commands Sandor coma scale total score: 15 COMMON NORMALS: patient oriented x3, moves all extremities, no focal motor deficits, no sensory deficits noted and gait normal SENSORIUM/ORIENTATION: Yes alert, Yes oriented to person, Yes oriented to place and Yes oriented to time MENINGEAL SIGNS: Yes no meningeal signs Skin: COMMON NORMALS: no rashes or lesions noted GENERAL SKIN EXAM: no rashes or lesions noted Course 2 Consultations: Consultation #1: Dr. Moreno-[facility] ER physician accepting ER to ER transfer Vital Signs: Vital signs: Vital Signs Temperature 101.8 F H 08/14/24 20:43 Pulse Rate 102 H 08/15/24 01:33 Respiratory Rate 19 H 08/15/24 01:33 Blood Pressure 113/79 08/15/24 01:33 Pulse Oximetry 91 08/15/24 01:33 Oxygen Delivery Me thod Room Air 08/15/24 01:32 MDM - Dental/Oral Medical Decision Making Patient is a 58-year-old male here for left submandibular swelling and abscess with concern for Luther's angina. Currently he is not having any concern for significant airway compromise. Dr. Yang has also assessed this patient and agrees with need for transfer. [facility] in [place] are both on divert. [facility] also was not accepting patient/no ENT coverage. Spoke to in [place] and they will accept patient ER to ER. Dr. Moreno will be the accepting physician. Medical Records I reviewed the patient's medical records. Lab Data I reviewed the patient's lab results. 08/14/24 21:48 08/14/24 22:10 Radiology Impressions Chest X-Ray 08/14/24 21:14 IMPRESSION: No acute findings. Neck CT 08/14/24 21:39 IMPRESSION: 1. 4.3 cm somewhat complex fluid collection centered about the left mandibular angle along both the medial and lateral aspect of the mandible consistent with an abscess. Additionally the fluid collection extends to the submandibular region, please correlate for Luther's angina given extension. Finding may be odontogenic in nature given associated underlying odontogenic disease. Associated narrowing of the airway is seen with effacement of the left vallecula and piriform sinus secondary to mass effect from the edema about the fluid collection. 2. Left thyroid 10 mm cyst, further evaluation with ultrasound advised. COMMENTS: Consistent with the [employer]'s Incidental Findings Committee white paper (J Am Kaylie Radiol 2015): In patients aged 35 years and older with an incidental thyroid nodule equal to or greater than 1.[address], MRI or extrathyroidal US, further evaluation with dedicated thyroid US is recommended for patients with normal life expectancy and without comorbidities. For smaller nodules without suspicious features, no further evaluation or follow up is recommended. ADDENDUM: 08/14/24 2231 THIS REPORT CONTAINS FINDINGS THAT MAY BE CRITICAL TO PATIENT CARE. The findings were verbally communicated via telephone conference with JOSSELYN KENT at 10:[address] MAGISTRATE on 08/14/2024. The findings were acknowledged and understood. Laboratory Results WBC 12.26 10^3/uL (3.29-11.43) H 08/14/24 21:48 RBC 4.68 10^6/uL (3.85-5.65) 08/14/24 21:48 Hgb 14.50 g/dL (11.27-16.99) 08/14/24 21:48 Hct 42.5 % (37-53) 08/14/24 21:48 MCV 90.8 fl (82-101) 08/14/24 21:48 MCH 31.0 pg (27-33) 08/14/24 21:48 MCHC 34.1 g/dL (30-55) 08/14/24 21:48 RDW 14.4 % (12.1-15.1) 08/14/24 21:48 Plt Count 335 10^3/cmm (157-399) 08/14/24 21:48 MPV 8.3 fL (7.4-10.4) 08/14/24 21:48 Neut % (Auto) 78.3 % 08/14/24 21:48 Lymph % (Auto) 9.8 % 08/14/24 21:48 Garza % (Auto) 11.3 % 08/14/24 21:48 Eos % (Auto) 0.1 % 08/14/24 21:48 Baso % (Auto) 0.2 % 08/14/24 21:48 Neut # (Auto) 9.61 10^3/uL (1.8-7.7) H 08/14/24 21:48 Lymph # (Auto) 1.2 10^3/uL (0.8-4.8) 08/14/24 21:48 Garza # (Auto) 1.4 10^3/uL (0.2-0.9) H 08/14/24 21:48 Eos # (Auto) 0.0 10^3/uL (0.0-0.8) 08/14/24 21:48 Baso # (Auto) 0.0 10^3/uL (0.0-0.1) 08/14/24 21:48 Nucleated RBC % (auto) 0 % 08/14/24 21:48 Nucleated RBCs # 0.0 /100WBC 08/14/24 21:48 Sodium 117 mmol/L (136-145) L* 08/14/24 22:10 Potassium 4.3 mmol/L (3.5-5.1) 08/14/24 22:10 Chloride 81 mmol/L (98-107) L 08/14/24 22:10 Carbon Dioxide 22 mmol/L (22-29) 08/14/24 22:10 Anion Gap 18.3 (5-19) 08/14/24 22:10 BUN 13 mg/dL (6-20) 08/14/24 22:10 Creatinine 1.3 mg/dL (0.7-1.2) H 08/14/24 22:10 GFR Calculation 57.1 mL/min (90-130) L 08/14/24 22:10 Glucose 263 mg/dL (65-115) H 08/14/24 22:10 Calculated Osmolality 253 mOsm/kg (285-295) L 08/14/24 22:10 Lactic Acid 1.8 mmol/L (0.5-2.2) 08/14/24 21:48 Calcium 8.8 mg/dL (8.5-10.5) 08/14/24 22:10 Total Bilirubin 0.5 mg/dL (0.15-1.2) 08/14/24 22:10 AST 13 U/L (0-40) 08/14/24 22:10 ALT 17 U/L (0-41) 08/14/24 22:10 Alkaline Phosphatase 62 U/L (40-130) 08/14/24 22:10 Total Protein 6.5 g/dL (6.6-8.7) L 08/14/24 22:10 Albumin 3.4 g/dL (3.5-5.2) L 08/14/24 22:10 Globulin 3.1 g/dL (1.3-4.6) 08/14/24 22:10 Coronavirus (PCR) Negative (Negative) 08/14/24 21:45 Influenza A (PCR) Negative (Negative) 08/14/24 21:45 Influenza Type B (PCR) Negative (Negative) 08/14/24 21:45 RSV (PCR) Negative (Negative) 08/14/24 21:45 All radiology interpretation(s) finalized by discharge Discharge Plan Discharge Patient Disposition: Transfer to ED Clinical Impression: Luther's angina Condition: Stable Prescriptions: No Action Januvia 100 mg tablet 100 mg PO DAILY tramadol 50 mg tablet 50 mg PO TID PRN (Reason: moderate to severe pain) Qty: 60 1RF methotrexate sodium 2.5 mg tablet 10 mg PO .weekly folic acid 0.8 mg capsule 0.8 mg PO DAILY alprazolam 0.5 mg tablet 0.5 mg PO BID PRN paliperidone [Invega] 6 mg tablet extended release 24 hr 6 mg PO QAM PRN (Reason: psychosis) Qty: 15 3RF Rx Instructions: take daily as needed 10 days prior to shot being due as needed for psychosis. pantoprazole 40 mg tablet,delayed release (DR/EC) 40 mg PO DAILY Qty: 90 1RF trazodone 100 mg tablet 200 mg PO .HS Qty: 60 2RF Invega Sustenna 234 mg/1.5 mL syringe 234 mg IM Q30D Qty: 1.5 0RF Rx Instructions: Due Nov sertraline [Zoloft] 50 mg tablet 50 mg PO DAILY Qty: 30 1RF lisinopril 10 mg tablet 10 mg PO DAILY Rybelsus 7 mg tablet 7 mg PO DAILY atorvastatin 40 mg Tablet 20 mg PO DAILY 30 Days Qty: 15 1RF metformin 500 mg Tablet 500 mg PO BIDWM 30 Days Qty: 60 1RF Referrals: Avery March MD [Primary Care Provider] - Coding Level of Care Code ED Administrative Aide for Chg Fwd Documented by User: Miles Yang DO 08/15/24 03:45 HPI - Dental/Oral 2 General: Chief complaint: Dental/Oral Stated complaint: dental absess cant swollow Time Seen by Provider: 08/14/24 21:30 Related Data Home Medications Medication Instructions Recorded Confirmed sitagliptin phosphate 100 mg 100 mg PO DAILY 12/20/21 08/12/24 tablet (Januvia) lisinopril 10 mg tablet 10 mg PO DAILY 10/30/23 08/12/24 semaglutide 7 mg tablet (Rybelsus) 7 mg PO DAILY 10/30/23 08/12/24 alprazolam 0.5 mg tablet 0.5 mg PO BID PRN 05/20/24 01/23/25 folic acid 0.8 mg capsule 0.8 mg PO DAILY 04/06/24 08/12/24 methotrexate sodium 2.5 mg tablet 10 mg PO .weekly 04/06/24 08/12/24 Previous Rx's Medication Instructions Recorded tramadol 50 mg tablet 50 mg PO TID PRN moderate to 12/20/21 severe pain #60 tabs pantoprazole 40 mg tablet,delayed 40 mg PO DAILY #90 tabs 06/03/22 release atorvastatin 40 mg tablet 20 mg (1/2 x 40 mg) PO DAILY 30 11/07/23 days #15 tabs metformin 500 mg tablet 500 mg PO BIDWM 30 days #60 tabs 11/07/23 trazodone 100 mg tablet 200 mg (2 x 100 mg) PO .HS #60 tabs 07/02/24 paliperidone palmitate 234 mg/1.5 234 mg (1.5 mL) IM Q30D #1.5 mL 07/29/24 mL intramuscular syringe (Invega Sustenna) sertraline 50 mg tablet (Zoloft) 50 mg PO DAILY #30 tabs 08/11/24 paliperidone 6 mg tablet,extended 6 mg PO QAM PRN psychosis #15 tabs 08/12/24 release 24 hr (Invega) Allergies Allergy/AdvReac Type Severity Reaction Status Date / Time No Known Allergies Allergy Verified 08/14/24 20:50 PFSH ED 2 PFSH: Medical History 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 antipsychotic drug therapy 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 Psychiatric care COVID-19 vaccine administered Major depressive disorder, recurrent, moderate Diabetes mellitus Immunization counseling High risk medication use Myalgia Seropositive rheumatoid arthritis of multiple sites Surgical History No significant past surgical history Family History Other CAD (coronary artery disease) Chronic kidney disease (CKD) Diabetes Hypertension Stroke Denies family history of Rheumatoid arthritis Lupus Hyperlipidemia Social History Smoking and tobacco/nicotine status: never used tobacco/nicotine Second hand smoke exposure: No Alcohol intake: current Alcohol intake frequency: few times a month Substance/Drug Use: unknown Adopted: No Caregiver/support person: Yes (Pts mother is his guardian) Lives independently: No Household members: none Housing: Manufactured/Mobile home Marital status: Highest education level completed: High School Graduate service: No 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 edema/TTP; extends into submandibular space Neuro: SANDOR COMA SCALE: document GCS findings [place] coma scale total score: 15 Course 2 Vital Signs: Vital signs: Vital Signs Temperature 101.8 F H 08/14/24 20:43 Pulse Rate 102 H 08/15/24 01:33 Respiratory Rate 19 H 08/15/24 01:33 Blood Pressure 113/79 08/15/24 01:33 Pulse Oximetry 91 08/15/24 01:33 Oxygen Delivery Me thod Room Air 08/15/24 01:32 MDM - Dental/Oral Medical Decision Making Patient is a 58-year-old male here for left submandibular swelling and abscess with concern for developing Luther's angina. Currently he is not having any concern for significant airway compromise. Dr. Yang has also assessed this patient and agrees with need for transfer. [facility] and [facility] in [place] are both on divert. [facility] also was not accepting patient/no ENT coverage. Spoke to in [facility] and they will accept patient ER to ER. Dr. Moreno will be the accepting physician. This patient was originally seen by Mrs. Kent?CLAUDINE Fraire.? I agree with her history, evaluation, and treatment. As above i have examined as well. Due to potential development of airway compromise, and long transfer time to accepting facility, the patient will be transferred by air EMS Lab Data 08/14/24 21:48 08/14/24 22:10 Radiology Impressions Chest X-Ray 08/14/24 21:14 IMPRESSION: No acute findings. Neck CT 08/14/24 21:39 IMPRESSION: 1. 4.3 cm somewhat complex fluid collection centered about the left mandibular angle along both the medial and lateral aspect of the mandible consistent with an abscess. Additionally the fluid collection extends to the submandibular region, please correlate for Luther's angina given extension. Finding may be odontogenic in nature given associated underlying odontogenic disease. Associated narrowing of the airway is seen with effacement of the left vallecula and piriform sinus secondary to mass effect from the edema about the fluid collection. 2. Left thyroid 10 mm cyst, further evaluation with ultrasound advised. COMMENTS: Consistent with the [employer]'s Incidental Findings Committee white paper (J Am Kaylie Radiol 2015): In patients aged 35 years and older with an incidental thyroid nodule equal to or greater than 1.[address], MRI or extrathyroidal US, further evaluation with dedicated thyroid US is recommended for patients with normal life expectancy and without comorbidities. For smaller nodules without suspicious features, no further evaluation or follow up is recommended. ADDENDUM: 08/14/242230 THIS REPORT CONTAINS FINDINGS THAT MAY BE CRITICAL TO PATIENT CARE. The findings were verbally communicated via telephone conference with JOSSELYN KENT at 10:[address] MAGISTRATE on 08/14/2024. The findings were acknowledged and understood. Laboratory Results WBC 12.26 10^3/uL (3.29-11.43) H 08/14/24 21:48 RBC 4.68 10^6/uL (3.85-5.65) 08/14/24 21:48 Hgb 14.50 g/dL (11.27-16.99) 08/14/24 21:48 Hct 42.5 % (37-53) 08/14/24 21:48 MCV 90.8 fl (82-101) 08/14/24 21:48 MCH 31.0 pg (27-33) 08/14/24 21:48 MCHC 34.1 g/dL (30-55) 08/14/24 21:48 RDW 14.4 % (12.1-15.1) 08/14/24 21:48 Plt Count 335 10^3/cmm (157-399) 08/14/24 21:48 MPV 8.3 fL (7.4-10.4) 08/14/24 21:48 Neut % (Auto) 78.3 % 08/14/24 21:48 Lymph % (Auto) 9.8 % 08/14/24 21:48 Garza % (Auto) 11.3 % 08/14/24 21:48 Eos % (Auto) 0.1 % 08/14/24 21:48 Baso % (Auto) 0.2 % 08/14/24 21:48 Neut # (Auto) 9.61 10^3/uL (1.8-7.7) H 08/14/24 21:48 Lymph # (Auto) 1.2 10^3/uL (0.8-4.8) 08/14/24 21:48 Garza # (Auto) 1.4 10^3/uL (0.2-0.9) H 08/14/24 21:48 Eos # (Auto) 0.0 10^3/uL (0.0-0.8) 08/14/24 21:48 Baso # (Auto) 0.0 10^3/uL (0.0-0.1) 08/14/24 21:48 Nucleated RBC % (auto) 0 % 08/14/24 21:48 Nucleated RBCs # 0.0 /100WBC 08/14/24 21:48 Sodium 117 mmol/L (136-145) L* 08/14/24 22:10 Potassium 4.3 mmol/L (3.5-5.1) 08/14/24 22:10 Chloride 81 mmol/L (98-107) L 08/14/24 22:10 Carbon Dioxide 22 mmol/L (22-29) 08/14/24 22:10 Anion Gap 18.3 (5-19) 08/14/24 22:10 BUN 13 mg/dL (6-20) 08/14/24 22:10 Creatinine 1.3 mg/dL (0.7-1.2) H 08/14/24 22:10 GFR Calculation 57.1 mL/min (90-130) L 08/14/24 22:10 Glucose 263 mg/dL (65-115) H 08/14/24 22:10 Calculated Osmolality 253 mOsm/kg (285-295) L 08/14/24 22:10 Lactic Acid 1.8 mmol/L (0.5-2.2) 08/14/24 21:48 Calcium 8.8 mg/dL (8.5-10.5) 08/14/24 22:10 Total Bilirubin 0.5 mg/dL (0.15-1.2) 08/14/24 22:10 AST 13 U/L (0-40) 08/14/24 22:10 ALT 17 U/L (0-41) 08/14/24 22:10 Alkaline Phosphatase 62 U/L (40-130) 08/14/24 22:10 Total Protein 6.5 g/dL (6.6-8.7) L 08/14/24 22:10 Albumin 3.4 g/dL (3.5-5.2) L 08/14/24 22:10 Globulin 3.1 g/dL (1.3-4.6) 08/14/24 22:10 Coronavirus (PCR) Negative (Negative) 08/14/24 21:45 Influenza A (PCR) Negative (Negative) 08/14/24 21:45 Influenza Type B (PCR) Negative (Negative) 08/14/24 21:45 RSV (PCR) Negative (Negative) 08/14/24 21:45 Discharge Plan Discharge Patient Disposition: Transfer to ED Clinical Impression: Luther's angina Condition: Stable Prescriptions: No Action Januvia 100 mg tablet 100 mg PO DAILY tramadol 50 mg tablet 50 mg PO TID PRN (Reason: moderate to severe pain) Qty: 60 1RF methotrexate sodium 2.5 mg tablet 10 mg PO .weekly folic acid 0.8 mg capsule 0.8 mg PO DAILY alprazolam 0.5 mg tablet 0.5 mg PO BID PRN paliperidone [Invega] 6 mg tablet extended release 24 hr 6 mg PO QAM PRN (Reason: psychosis) Qty: 15 3RF Rx Instructions: take daily as needed 10 days prior to shot being due as needed for psychosis. pantoprazole 40 mg tablet,delayed release (DR/EC) 40 mg PO DAILY Qty: 90 1RF trazodone 100 mg tablet 200 mg PO .HS Qty: 60 2RF Invega Sustenna 234 mg/1.5 mL syringe 234 mg IM Q30D Qty: 1.5 0RF Rx Instructions: Due Nov 8th sertraline [Zoloft] 50 mg tablet 50 mg PO DAILY Qty: 30 1RF lisinopril 10 mg tablet 10 mg PO DAILY Rybelsus 7 mg tablet 7 mg PO DAILY atorvastatin 40 mg Tablet 20 mg PO DAILY 30 Days Qty: 15 1RF metformin 500 mg Tablet 500 mg PO BIDWM 30 Days Qty: 60 1RF Referrals: Avery March MD [Primary Care Provider] - Coding Level of Care Code ED Administrative Aide for Chg Fwd
[2024-08-14] MEDS: iohexol 350 mg/mL 500 mL Btl (per mL) IV (22:00)
[2024-08-14 22:02] LABS: Basophils % 0.2 %; Eosinophils % 0.1 %; Hematocrit 42.5 % (37-53); Lymphocytes # 1.2 10^3/uL (0.8-4.8); Lymphocytes % 9.8 %; Mean Corpuscular HGB Conc 34.1 g/dL (30-55); Mean Corpuscular Volume 90.8 fl (82-101); Mean Platelet Volume 8.3 fL (7.4-10.4); Monocytes # 1.4 10^3/uL (0.2-0.9); Monocytes % 11.3 %; Neutrophils # 9.61 10^3/uL (1.8-7.7); Neutrophils % 78.3 %; Nucleated Red Blood Cells % 0 %; Platelet Count 335 10^3/cmm (157-399); Red Blood Count 4.68 10^6/uL (3.85-5.65); Red Cell Distribution Width 14.4 % (12.1-15.1); White Blood Count 12.26 10^3/uL (3.29-11.43)
[2024-08-14 22:08] VITALS: BP 146/75; PULSE 117; RESP 18; O2SAT 95
[2024-08-14 22:21] LABS: Lactic Sepsis W/Reflex 1.8 mmol/L (0.5-2.2)
[2024-08-14] MEDS: acetaminophen 1,000 MG/100 ML PIGGYBACK 400 MG IV (22:27)
[2024-08-14] MEDS: dexamethasone 10 mg/mL INJ IVP (22:27)
[2024-08-14] MEDS: ampicillin-sulbactam 3 GM in sodium chloride 0.9% (plus) 50 ML IV (22:32)
[2024-08-14 22:35] VITALS: BP 125/84; PULSE 115; RESP 18; O2SAT 95
[2024-08-14 22:38] LABS: Covid PCR NEGATIVE (Negative); Influenza A NEGATIVE (Negative); Influenza B NEGATIVE (Negative); Respiratory Syncytial Virus Ce NEGATIVE (Negative)
[2024-08-14 22:44] LABS: Alanine Aminotransferase 17 U/L (0-41); Albumin Level 3.4 g/dL (3.5-5.2); Alkaline Phosphatase 62 U/L (40-130); Anion Gap 18.3 (5-19); Aspartate Amino Transferase 13 U/L (0-40); Blood Urea Nitrogen 13 mg/dL (6-20); Calcium 8.8 mg/dL (8.5-10.5); Carbon Dioxide 22 mmol/L (22-29); Chloride 81 mmol/L (98-107); Globulin 3.1 g/dL (1.3-4.6); Glomerular Filtration Rate 57.1 mL/min (90-130); Glucose 263 mg/dL (65-115); Osmolality Calculated 253 mOsm/kg (285-295); Potassium 4.3 mmol/L (3.5-5.1); Total Bilirubin 0.5 mg/dL (0.15-1.2); Total Protein 6.5 g/dL (6.6-8.7)
[2024-08-14 22:57] LABS: Creatinine Clr Calc Pharmacy 66.4311; Sodium 117 mmol/L (136-145)
[2024-08-14 23:04] VITALS: BP 148/79; PULSE 115; RESP 18; O2SAT 93
[2024-08-14] MEDS: sodium chloride 0.9% 1,000 ML 100 ML IV (23:46)
[2024-08-15 00:29] VITALS: BP 117/75; PULSE 97; RESP 20; O2SAT 91
[2024-08-15] MEDS: LORazepam 2 mg/mL INJ 1 mL 0.5 MG IVP (01:16)
[2024-08-15 01:32] VITALS: BP 113/79; PULSE 102; RESP 19; O2SAT 91
[2024-08-15 01:33] VITALS: BP 113/79; PULSE 102; RESP 19; O2SAT 91
== END 2024-08-15 01:41 ==
PROVIDERS: Emergency Provider Physician Assistant; PCP Family Medicine
DX: K12.2 Cellulitis and abscess of mouth (principal); Z79.84 Long term (current) use of oral hypoglycemic drugs; Z11.52 Encounter for screening for COVID-19; E11.9 Type 2 diabetes mellitus without complications
CPT/HCPCS: 36415; 70491; 71045; 80053; 83605; 85025; 87040; 87637; 93005; 96365; 96375; 99285; J0131; J0295; J1100; J2060; J7030